=== PATIENT | female | born 1965 | race Caucasian/White ===

== ENCOUNTER 2020-06-18 11:22 | Outpatient (REF) | payer MEDICARE, MEDICAID, SELFPAY ==
[2020-06-18 12:06] LABS: MANUAL DIFF FLAG NO
[2020-06-18 12:17] LABS: Basophils Absolute Auto 0.1 X10*3/uL (0.0-0.2); Basophils Percent Auto 0.6 % (0-2); Hematocrit 41.7 % (37-47); Imm Gran Abs Auto 0.03 X10*3/uL (0.00-0.03); Imm Gran Pct Auto 0.3 % (0.0-0.4); Lymphocytes Percent Auto 38.1 % (20-40); Mean Corpuscular HGB Conc 33.6 g/dl (31.0-35.0); Mean Corpuscular Hemoglobin 31.5 pg (27.0-33.0); Mean Corpuscular Volume 93.9 fL (80-98); Mean Platelet Volume 11.3 fL (9.4-12.3); Monocytes Absolute Auto 0.7 X10*3/uL (0.1-1.2); Monocytes Percent Auto 6.7 % (2-11); Neutrophils Absolute Auto 5.7 X10*3/uL (2.0-8.3); Neutrophils Percent Auto 54.3 % (45-73); Platelet Count 202 X10*3/uL (160-400); Red Blood Count 4.44 X10*6/uL (4.20-5.50); Red Cell Distribution Width 13.1 % (11.0-16.0); White Blood Count 10.5 X10*3/uL (4.8-10.8)
== END 2020-06-18 11:23 | disposition home or self-care (01) ==
LOC: HO.LABR 11:22
PROVIDERS: PCP Internal Medicine; Visit Provider Clinical Nurse Specialist Psychiatric/Mental Health, Adult
DX: Z79.899 Other long term (current) drug therapy (principal)
CPT/HCPCS: 36415; 85025

== ENCOUNTER 2020-07-24 10:16 | Outpatient (REF) | payer MEDICARE, MEDICAID, SELFPAY ==
[2020-07-24 10:40] LABS: MANUAL DIFF FLAG NO
[2020-07-24 10:51] LABS: Basophils Absolute Auto 0.1 X10*3/uL (0.0-0.2); Basophils Percent Auto 0.4 % (0-2); Hematocrit 42.8 % (37-47); Hemoglobin 14.7 g/dl (12.0-16.0); Imm Gran Abs Auto 0.05 X10*3/uL (0.00-0.03); Imm Gran Pct Auto 0.4 % (0.0-0.4); Lymphocytes Absolute Auto 3.5 X10*3/uL (1.2-4.9); Lymphocytes Percent Auto 31.1 % (20-40); Mean Corpuscular HGB Conc 34.3 g/dl (31.0-35.0); Mean Corpuscular Hemoglobin 32.2 pg (27.0-33.0); Mean Corpuscular Volume 93.7 fL (80-98); Mean Platelet Volume 11.4 fL (9.4-12.3); Monocytes Absolute Auto 0.8 X10*3/uL (0.1-1.2); Monocytes Percent Auto 7.2 % (2-11); Neutrophils Absolute Auto 6.9 X10*3/uL (2.0-8.3); Neutrophils Percent Auto 60.9 % (45-73); Platelet Count 223 X10*3/uL (160-400); Red Blood Count 4.57 X10*6/uL (4.20-5.50); Red Cell Distribution Width 12.9 % (11.0-16.0); White Blood Count 11.3 X10*3/uL (4.8-10.8)
== END 2020-07-24 10:17 | disposition home or self-care (01) ==
LOC: HO.LABR 10:16
PROVIDERS: Visit Provider Clinical Nurse Specialist Psychiatric/Mental Health, Adult
DX: Z79.899 Other long term (current) drug therapy (principal)
CPT/HCPCS: 36415; 85025

== ENCOUNTER 2020-08-24 12:12 | Outpatient (REF) | payer MEDICARE, MEDICAID, SELFPAY ==
[2020-08-24 13:07] LABS: Basophils Absolute Auto 0.1 X10*3/uL (0.0-0.2); Basophils Percent Auto 0.4 % (0-2); Hematocrit 41.6 % (37-47); Hemoglobin 14.1 g/dl (12.0-16.0); Imm Gran Abs Auto 0.05 X10*3/uL (0.00-0.03); Imm Gran Pct Auto 0.4 % (0.0-0.4); Lymphocytes Percent Auto 35.7 % (20-40); MANUAL DIFF FLAG SCAN; Mean Corpuscular HGB Conc 33.9 g/dl (31.0-35.0); Mean Corpuscular Hemoglobin 32.1 pg (27.0-33.0); Mean Corpuscular Volume 94.8 fL (80-98); Neutrophils Absolute Auto 7.9 X10*3/uL (2.0-8.3); Neutrophils Percent Auto 56.5 % (45-73); Platelet Count 217 X10*3/uL (160-400); Red Blood Count 4.39 X10*6/uL (4.20-5.50); SCAN SMEAR FLAG 1
[2020-08-24 13:31] LABS: SLIDE REVIEW VERIFIED
== END 2020-08-24 12:13 | disposition home or self-care (01) ==
LOC: HO.LABR 12:12
PROVIDERS: PCP Internal Medicine; Visit Provider Clinical Nurse Specialist Psychiatric/Mental Health, Adult
DX: Z79.899 Other long term (current) drug therapy (principal)
CPT/HCPCS: 36415; 85025

== ENCOUNTER 2020-10-08 12:14 | Outpatient (REF) | payer MEDICARE, MEDICAID, SELFPAY ==
[2020-10-08 13:34] LABS: MANUAL DIFF FLAG NO
[2020-10-08 13:54] LABS: Basophils Absolute Auto 0.1 X10*3/uL (0.0-0.2); Basophils Percent Auto 0.5 % (0-2); Hematocrit 41.2 % (37-47); Hemoglobin 13.9 g/dl (12.0-16.0); Imm Gran Abs Auto 0.04 X10*3/uL (0.00-0.03); Imm Gran Pct Auto 0.3 % (0.0-0.4); Lymphocytes Absolute Auto 3.4 X10*3/uL (1.2-4.9); Lymphocytes Percent Auto 25.8 % (20-40); Mean Corpuscular HGB Conc 33.7 g/dl (31.0-35.0); Mean Corpuscular Hemoglobin 31.6 pg (27.0-33.0); Mean Corpuscular Volume 93.6 fL (80-98); Mean Platelet Volume 11.6 fL (9.4-12.3); Monocytes Percent Auto 7.4 % (2-11); Neutrophils Absolute Auto 8.6 X10*3/uL (2.0-8.3); Platelet Count 213 X10*3/uL (160-400); White Blood Count 13.1 X10*3/uL (4.8-10.8)
== END 2020-10-08 12:15 | disposition home or self-care (01) ==
LOC: HO.LABR 12:14
PROVIDERS: Visit Provider Clinical Nurse Specialist Psychiatric/Mental Health, Adult
DX: Z79.899 Other long term (current) drug therapy (principal)
CPT/HCPCS: 36415; 85025

== ENCOUNTER 2020-11-19 09:13 | Outpatient (REF) | payer MEDICARE, MEDICAID, SELFPAY ==
[2020-11-19 10:11] LABS: MANUAL DIFF FLAG NO
[2020-11-19 10:21] LABS: Basophils Absolute Auto 0.1 X10*3/uL (0.0-0.2); Basophils Percent Auto 0.5 % (0-2); Hematocrit 41.1 % (37-47); Hemoglobin 13.7 g/dl (12.0-16.0); Imm Gran Abs Auto 0.04 X10*3/uL (0.00-0.03); Imm Gran Pct Auto 0.3 % (0.0-0.4); Lymphocytes Absolute Auto 3.2 X10*3/uL (1.2-4.9); Lymphocytes Percent Auto 27.5 % (20-40); Mean Corpuscular HGB Conc 33.3 g/dl (31.0-35.0); Mean Corpuscular Hemoglobin 31.4 pg (27.0-33.0); Mean Corpuscular Volume 94.1 fL (80-98); Mean Platelet Volume 11.1 fL (9.4-12.3); Monocytes Absolute Auto 0.8 X10*3/uL (0.1-1.2); Monocytes Percent Auto 7.1 % (2-11); Neutrophils Absolute Auto 7.4 X10*3/uL (2.0-8.3); Neutrophils Percent Auto 64.6 % (45-73); Platelet Count 208 X10*3/uL (160-400); Red Blood Count 4.37 X10*6/uL (4.20-5.50); Red Cell Distribution Width 12.8 % (11.0-16.0); White Blood Count 11.5 X10*3/uL (4.8-10.8)
[2020-11-24 23:52] LABS: Clozapine (Clozaril) 514 mcg/L; Norclozapine 416 mcg/L (25-400)
== END 2020-11-19 09:14 | disposition home or self-care (01) ==
LOC: HO.LABR 09:13
PROVIDERS: PCP Internal Medicine; Visit Provider Clinical Nurse Specialist Psychiatric/Mental Health, Adult
DX: Z79.899 Other long term (current) drug therapy (principal)
CPT/HCPCS: 36415; 80159; 85025

== ENCOUNTER 2020-12-22 14:40 | Outpatient (REF) | payer MEDICARE, MEDICAID, SELFPAY ==
[2020-12-22 15:29] LABS: Basophils Absolute Auto 0.1 X10*3/uL (0.0-0.2); Basophils Percent Auto 0.5 % (0-2); Hematocrit 43.2 % (37-47); Hemoglobin 14.6 g/dl (12.0-16.0); Imm Gran Abs Auto 0.06 X10*3/uL (0.00-0.03); Imm Gran Pct Auto 0.4 % (0.0-0.4); Lymphocytes Absolute Auto 5.6 X10*3/uL (1.2-4.9); Lymphocytes Percent Auto 37.2 % (20-40); MANUAL DIFF FLAG SCAN; Mean Corpuscular HGB Conc 33.8 g/dl (31.0-35.0); Mean Corpuscular Hemoglobin 31.5 pg (27.0-33.0); Mean Corpuscular Volume 93.3 fL (80-98); Mean Platelet Volume 11.2 fL (9.4-12.3); Monocytes Absolute Auto 1.1 X10*3/uL (0.1-1.2); Monocytes Percent Auto 7.3 % (2-11); Neutrophils Absolute Auto 8.2 X10*3/uL (2.0-8.3); Neutrophils Percent Auto 54.6 % (45-73); Platelet Count 232 X10*3/uL (160-400); Red Blood Count 4.63 X10*6/uL (4.20-5.50); Red Cell Distribution Width 13.1 % (11.0-16.0); SCAN SMEAR FLAG 1
[2020-12-22 15:48] LABS: SLIDE REVIEW VERIFIED
== END 2020-12-22 14:41 | disposition home or self-care (01) ==
LOC: HO.LABR 14:40
PROVIDERS: Visit Provider Clinical Nurse Specialist Psychiatric/Mental Health, Adult
DX: Z79.899 Other long term (current) drug therapy (principal)
CPT/HCPCS: 36415; 85025

== ENCOUNTER 2021-01-14 09:18 | Outpatient (REF) | payer MEDICARE, MEDICAID, SELFPAY ==
[2021-01-14 10:18] LABS: MANUAL DIFF FLAG NO
[2021-01-14 10:31] LABS: Basophils Absolute Auto 0.1 X10*3/uL (0.0-0.2); Basophils Percent Auto 0.5 % (0-2); Hematocrit 42.5 % (37-47); Hemoglobin 14.1 g/dl (12.0-16.0); Imm Gran Abs Auto 0.05 X10*3/uL (0.00-0.03); Imm Gran Pct Auto 0.4 % (0.0-0.4); Lymphocytes Absolute Auto 4.1 X10*3/uL (1.2-4.9); Lymphocytes Percent Auto 36.1 % (20-40); Mean Corpuscular HGB Conc 33.2 g/dl (31.0-35.0); Mean Corpuscular Hemoglobin 31.1 pg (27.0-33.0); Mean Corpuscular Volume 93.6 fL (80-98); Mean Platelet Volume 11.1 fL (9.4-12.3); Monocytes Absolute Auto 0.8 X10*3/uL (0.1-1.2); Monocytes Percent Auto 6.8 % (2-11); Neutrophils Absolute Auto 6.3 X10*3/uL (2.0-8.3); Neutrophils Percent Auto 56.2 % (45-73); Platelet Count 230 X10*3/uL (160-400); Red Blood Count 4.54 X10*6/uL (4.20-5.50); Red Cell Distribution Width 13.2 % (11.0-16.0); White Blood Count 11.2 X10*3/uL (4.8-10.8)
== END 2021-01-14 09:19 | disposition home or self-care (01) ==
LOC: HO.LABR 09:18
PROVIDERS: PCP Internal Medicine; Visit Provider Clinical Nurse Specialist Psychiatric/Mental Health, Adult
DX: Z79.899 Other long term (current) drug therapy (principal)
CPT/HCPCS: 36415; 85025

== ENCOUNTER 2021-02-18 09:29 | Outpatient (REF) | payer MEDICARE, MEDICAID, SELFPAY ==
[2021-02-18 10:44] LABS: MANUAL DIFF FLAG NO
[2021-02-18 10:52] LABS: Basophils Absolute Auto 0.1 X10*3/uL (0.0-0.2); Basophils Percent Auto 0.5 % (0-2); Hematocrit 41.5 % (37-47); Imm Gran Abs Auto 0.04 X10*3/uL (0.00-0.03); Imm Gran Pct Auto 0.4 % (0.0-0.4); Lymphocytes Absolute Auto 3.8 X10*3/uL (1.2-4.9); Lymphocytes Percent Auto 37.5 % (20-40); Mean Corpuscular HGB Conc 33.7 g/dl (31.0-35.0); Mean Corpuscular Hemoglobin 31.5 pg (27.0-33.0); Mean Corpuscular Volume 93.3 fL (80-98); Mean Platelet Volume 11.3 fL (9.4-12.3); Monocytes Absolute Auto 0.8 X10*3/uL (0.1-1.2); Monocytes Percent Auto 7.9 % (2-11); Neutrophils Absolute Auto 5.5 X10*3/uL (2.0-8.3); Neutrophils Percent Auto 53.7 % (45-73); Platelet Count 211 X10*3/uL (160-400); Red Blood Count 4.45 X10*6/uL (4.20-5.50); Red Cell Distribution Width 13.3 % (11.0-16.0); White Blood Count 10.2 X10*3/uL (4.8-10.8)
== END 2021-02-18 09:30 | disposition home or self-care (01) ==
LOC: HO.LABR 09:29
PROVIDERS: PCP Internal Medicine; Visit Provider Clinical Nurse Specialist Psychiatric/Mental Health, Adult
DX: Z79.899 Other long term (current) drug therapy (principal)
CPT/HCPCS: 36415; 85025

== ENCOUNTER 2021-03-17 12:14 | Outpatient (REF) | payer MEDICARE, MEDICAID, SELFPAY ==
[2021-03-17 13:11] LABS: MANUAL DIFF FLAG NO
[2021-03-17 13:19] LABS: Basophils Absolute Auto 0.1 X10*3/uL (0.0-0.2); Basophils Percent Auto 0.4 % (0-2); Hematocrit 43.7 % (37-47); Hemoglobin 14.7 g/dl (12.0-16.0); Imm Gran Abs Auto 0.04 X10*3/uL (0.00-0.03); Imm Gran Pct Auto 0.3 % (0.0-0.4); Lymphocytes Absolute Auto 4.4 X10*3/uL (1.2-4.9); Lymphocytes Percent Auto 34.2 % (20-40); Mean Corpuscular HGB Conc 33.6 g/dl (31.0-35.0); Mean Corpuscular Hemoglobin 31.3 pg (27.0-33.0); Mean Platelet Volume 11.1 fL (9.4-12.3); Monocytes Absolute Auto 0.7 X10*3/uL (0.1-1.2); Monocytes Percent Auto 5.7 % (2-11); Neutrophils Absolute Auto 7.7 X10*3/uL (2.0-8.3); Neutrophils Percent Auto 59.4 % (45-73); Platelet Count 227 X10*3/uL (160-400); White Blood Count 12.9 X10*3/uL (4.8-10.8)
== END 2021-03-17 12:15 | disposition home or self-care (01) ==
LOC: HO.LABR 12:14
PROVIDERS: PCP Internal Medicine; Visit Provider Clinical Nurse Specialist Psychiatric/Mental Health, Adult
DX: Z79.899 Other long term (current) drug therapy (principal)
CPT/HCPCS: 36415; 85025

== ENCOUNTER 2021-04-12 12:14 | Outpatient (REF) | payer MEDICARE, MEDICAID, SELFPAY ==
[2021-04-12 12:58] LABS: MANUAL DIFF FLAG NO
[2021-04-12 13:05] LABS: Basophils Absolute Auto 0.1 X10*3/uL (0.0-0.2); Basophils Percent Auto 0.6 % (0-2); Hematocrit 41.5 % (37-47); Hemoglobin 13.9 g/dl (12.0-16.0); Imm Gran Abs Auto 0.03 X10*3/uL (0.00-0.03); Imm Gran Pct Auto 0.3 % (0.0-0.4); Lymphocytes Absolute Auto 3.9 X10*3/uL (1.2-4.9); Mean Corpuscular HGB Conc 33.5 g/dl (31.0-35.0); Mean Corpuscular Hemoglobin 31.1 pg (27.0-33.0); Mean Corpuscular Volume 92.8 fL (80-98); Mean Platelet Volume 10.8 fL (9.4-12.3); Monocytes Absolute Auto 0.7 X10*3/uL (0.1-1.2); Monocytes Percent Auto 7.6 % (2-11); Neutrophils Absolute Auto 4.8 X10*3/uL (2.0-8.3); Neutrophils Percent Auto 50.5 % (45-73); Platelet Count 206 X10*3/uL (160-400); Red Blood Count 4.47 X10*6/uL (4.20-5.50); White Blood Count 9.6 X10*3/uL (4.8-10.8)
== END 2021-04-12 12:15 | disposition home or self-care (01) ==
LOC: HO.LABR 12:14
PROVIDERS: PCP Internal Medicine; Visit Provider Clinical Nurse Specialist Psychiatric/Mental Health, Adult
DX: Z79.899 Other long term (current) drug therapy (principal)
CPT/HCPCS: 36415; 85025

== ENCOUNTER 2021-05-13 08:43 | Outpatient (REF) | payer MEDICARE, MEDICAID, SELFPAY ==
[2021-05-13 09:12] LABS: MANUAL DIFF FLAG NO
[2021-05-13 09:18] LABS: Basophils Absolute Auto 0.1 X10*3/uL (0.0-0.2); Basophils Percent Auto 0.5 % (0-2); Hematocrit 41.6 % (37-47); Hemoglobin 13.7 g/dl (12.0-16.0); Imm Gran Abs Auto 0.06 X10*3/uL (0.00-0.03); Imm Gran Pct Auto 0.6 % (0.0-0.4); Lymphocytes Absolute Auto 3.1 X10*3/uL (1.2-4.9); Lymphocytes Percent Auto 30.5 % (20-40); Mean Corpuscular HGB Conc 32.9 g/dl (31.0-35.0); Mean Corpuscular Volume 94.1 fL (80-98); Mean Platelet Volume 10.8 fL (9.4-12.3); Monocytes Absolute Auto 0.7 X10*3/uL (0.1-1.2); Monocytes Percent Auto 7.1 % (2-11); Neutrophils Absolute Auto 6.3 X10*3/uL (2.0-8.3); Neutrophils Percent Auto 61.3 % (45-73); Platelet Count 196 X10*3/uL (160-400); Red Blood Count 4.42 X10*6/uL (4.20-5.50); Red Cell Distribution Width 13.2 % (11.0-16.0); White Blood Count 10.3 X10*3/uL (4.8-10.8)
== END 2021-05-13 08:44 | disposition home or self-care (01) ==
LOC: HO.LABR 08:43
PROVIDERS: PCP Internal Medicine; Visit Provider Clinical Nurse Specialist Psychiatric/Mental Health, Adult
DX: Z79.899 Other long term (current) drug therapy (principal)
CPT/HCPCS: 36415; 85025

== ENCOUNTER 2021-06-16 11:17 | Outpatient (REF) | payer MEDICARE, MEDICAID, SELFPAY ==
[2021-06-16 11:39] LABS: MANUAL DIFF FLAG NO
[2021-06-16 11:59] LABS: Basophils Absolute Auto 0.1 X10*3/uL (0.0-0.2); Basophils Percent Auto 0.5 % (0-2); Hemoglobin 12.9 g/dl (12.0-16.0); Imm Gran Abs Auto 0.06 X10*3/uL (0.00-0.03); Imm Gran Pct Auto 0.5 % (0.0-0.4); Lymphocytes Absolute Auto 3.3 X10*3/uL (1.2-4.9); Lymphocytes Percent Auto 25.1 % (20-40); Mean Corpuscular HGB Conc 33.1 g/dl (31.0-35.0); Mean Corpuscular Hemoglobin 31.2 pg (27.0-33.0); Mean Corpuscular Volume 94.2 fL (80-98); Mean Platelet Volume 10.3 fL (9.4-12.3); Monocytes Absolute Auto 0.8 X10*3/uL (0.1-1.2); Monocytes Percent Auto 6.3 % (2-11); Neutrophils Absolute Auto 8.8 X10*3/uL (2.0-8.3); Neutrophils Percent Auto 67.6 % (45-73); Platelet Count 382 X10*3/uL (160-400); Red Blood Count 4.14 X10*6/uL (4.20-5.50); Red Cell Distribution Width 13.2 % (11.0-16.0)
== END 2021-06-16 11:18 | disposition home or self-care (01) ==
LOC: HO.LABR 11:17
PROVIDERS: PCP Internal Medicine; Visit Provider Clinical Nurse Specialist Psychiatric/Mental Health, Adult
DX: Z79.899 Other long term (current) drug therapy (principal)
CPT/HCPCS: 36415; 85025

== ENCOUNTER 2021-07-13 12:04 | Outpatient (REF) | payer MEDICARE, MEDICAID, SELFPAY ==
[2021-07-13 12:20] LABS: MANUAL DIFF FLAG NO
[2021-07-13 13:07] LABS: Basophils Absolute Auto 0.1 X10*3/uL (0.0-0.2); Basophils Percent Auto 0.5 % (0-2); Hematocrit 38.4 % (37.0-47.0); Imm Gran Abs Auto 0.04 X10*3/uL (0.00-0.03); Imm Gran Pct Auto 0.3 % (0.0-0.4); Lymphocytes Absolute Auto 4.7 X10*3/uL (1.2-4.9); Lymphocytes Percent Auto 39.2 % (20-40); Mean Corpuscular HGB Conc 33.9 g/dl (31.0-35.0); Mean Corpuscular Hemoglobin 31.5 pg (27.0-33.0); Mean Platelet Volume 11.1 fL (9.4-12.3); Monocytes Absolute Auto 0.7 X10*3/uL (0.1-1.2); Monocytes Percent Auto 6.2 % (2-11); Neutrophils Absolute Auto 6.4 x10*3/uL (2.0-8.3); Neutrophils Percent Auto 53.8 % (45-73); Platelet Count 240 X10*3/uL (160-400); Red Blood Count 4.13 X10*6/uL (4.20-5.50); Red Cell Distribution Width 13.8 % (11.0-16.0); White Blood Count 11.9 X10*3/uL (4.8-10.8)
== END 2021-07-13 12:05 | disposition home or self-care (01) ==
LOC: HO.LABR 12:04
PROVIDERS: PCP Internal Medicine; Visit Provider Clinical Nurse Specialist Psychiatric/Mental Health, Adult
DX: Z79.899 Other long term (current) drug therapy (principal)
CPT/HCPCS: 36415; 85025

== ENCOUNTER 2021-08-12 09:32 | Outpatient (REF) | payer MEDICARE, MEDICAID, SELFPAY ==
[2021-08-12 09:47] LABS: MANUAL DIFF FLAG NO
[2021-08-12 10:11] LABS: Basophils Absolute Auto 0.1 X10*3/uL (0.0-0.2); Basophils Percent Auto 0.5 % (0-2); Hematocrit 39.3 % (37.0-47.0); Hemoglobin 12.9 g/dl (12.0-16.0); Imm Gran Abs Auto 0.03 X10*3/uL (0.00-0.03); Imm Gran Pct Auto 0.3 % (0.0-0.4); Lymphocytes Absolute Auto 3.3 X10*3/uL (1.2-4.9); Lymphocytes Percent Auto 31.9 % (20-40); Mean Corpuscular HGB Conc 32.8 g/dl (31.0-35.0); Mean Corpuscular Hemoglobin 30.9 pg (27.0-33.0); Mean Corpuscular Volume 94.2 fL (80.0-98.0); Mean Platelet Volume 11.2 fL (9.4-12.3); Monocytes Absolute Auto 0.8 X10*3/uL (0.1-1.2); Monocytes Percent Auto 7.3 % (2-11); Neutrophils Absolute Auto 6.2 x10*3/uL (2.0-8.3); Platelet Count 203 X10*3/uL (160-400); Red Blood Count 4.17 X10*6/uL (4.20-5.50); Red Cell Distribution Width 13.6 % (11.0-16.0); WBCANC 10.3 X10*3/uL; White Blood Count 10.3 X10*3/uL (4.8-10.8)
== END 2021-08-12 09:33 | disposition home or self-care (01) ==
LOC: HO.LAB 09:32
PROVIDERS: PCP Internal Medicine; Visit Provider Clinical Nurse Specialist Psychiatric/Mental Health, Adult
DX: Z79.899 Other long term (current) drug therapy (principal)
CPT/HCPCS: 36415; 85025

== ENCOUNTER 2021-09-07 12:20 | Outpatient (REF) | payer MEDICARE, MEDICAID, SELFPAY ==
[2021-09-07 12:50] LABS: MANUAL DIFF FLAG NO
[2021-09-07 14:18] LABS: Basophils Absolute Auto 0.1 X10*3/uL (0.0-0.2); Basophils Percent Auto 0.6 % (0-2); Imm Gran Abs Auto 0.04 X10*3/uL (0.00-0.03); Imm Gran Pct Auto 0.4 % (0.0-0.4); Lymphocytes Absolute Auto 4.6 X10*3/uL (1.2-4.9); Lymphocytes Percent Auto 41.9 % (20-40); Mean Corpuscular HGB Conc 34.1 g/dl (31.0-35.0); Mean Corpuscular Hemoglobin 31.6 pg (27.0-33.0); Mean Corpuscular Volume 92.6 fL (80.0-98.0); Monocytes Absolute Auto 0.8 X10*3/uL (0.1-1.2); Monocytes Percent Auto 6.9 % (2-11); Neut%MD 50.2 %; Neutrophils Absolute Auto 5.5 x10*3/uL (2.0-8.3); Neutrophils Percent Auto 50.2 % (45-73); Platelet Count 219 X10*3/uL (160-400); Red Blood Count 4.43 X10*6/uL (4.20-5.50); Red Cell Distribution Width 13.3 % (11.0-16.0); WBCANC 10.9 X10*3/uL; White Blood Count 10.9 X10*3/uL (4.8-10.8)
== END 2021-09-07 12:21 | disposition home or self-care (01) ==
LOC: HO.LABR 12:20
PROVIDERS: Visit Provider Clinical Nurse Specialist Psychiatric/Mental Health, Adult
DX: Z79.899 Other long term (current) drug therapy (principal)
CPT/HCPCS: 36415; 85025

== ENCOUNTER 2021-11-15 16:24 | Outpatient (REF) | payer MEDICARE, MEDICAID, SELFPAY ==
[2021-11-15 16:40] LABS: MANUAL DIFF FLAG NO
[2021-11-15 16:43] LABS: Basophils Absolute Auto 0.1 X10*3/uL (0.0-0.2); Basophils Percent Auto 0.4 % (0-2); Hematocrit 39.5 % (37.0-47.0); Hemoglobin 13.1 g/dl (12.0-16.0); Imm Gran Abs Auto 0.05 X10*3/uL (0.00-0.03); Imm Gran Pct Auto 0.4 % (0.0-0.4); Lymphocytes Absolute Auto 4.7 X10*3/uL (1.2-4.9); Lymphocytes Percent Auto 37.6 % (20-40); Mean Corpuscular HGB Conc 33.2 g/dl (31.0-35.0); Mean Corpuscular Hemoglobin 30.9 pg (27.0-33.0); Mean Corpuscular Volume 93.2 fL (80.0-98.0); Mean Platelet Volume 10.8 fL (9.4-12.3); Monocytes Absolute Auto 0.9 X10*3/uL (0.1-1.2); Monocytes Percent Auto 7.1 % (2-11); Neut%MD 54.5 %; Neutrophils Absolute Auto 6.8 x10*3/uL (2.0-8.3); Neutrophils Percent Auto 54.5 % (45-73); Platelet Count 227 X10*3/uL (160-400); Red Blood Count 4.24 X10*6/uL (4.20-5.50); Red Cell Distribution Width 13.2 % (11.0-16.0); WBCANC 12.5 X10*3/uL; White Blood Count 12.5 X10*3/uL (4.8-10.8)
== END 2021-11-15 16:25 | disposition home or self-care (01) ==
LOC: HO.LAB 16:24
PROVIDERS: PCP Internal Medicine; Visit Provider Clinical Nurse Specialist Psychiatric/Mental Health, Adult
DX: Z79.899 Other long term (current) drug therapy (principal)
CPT/HCPCS: 36415; 85025

== ENCOUNTER 2021-12-09 14:59 | Outpatient (REF) | payer MEDICARE, MEDICAID, SELFPAY ==
[2021-12-09 15:12] LABS: MANUAL DIFF FLAG NO
[2021-12-09 15:31] LABS: Basophils Absolute Auto 0.1 X10*3/uL (0.0-0.2); Basophils Percent Auto 0.5 % (0-2); Hematocrit 39.6 % (37.0-47.0); Hemoglobin 13.3 g/dl (12.0-16.0); Imm Gran Abs Auto 0.05 X10*3/uL (0.00-0.03); Imm Gran Pct Auto 0.5 % (0.0-0.4); Lymphocytes Absolute Auto 4.6 X10*3/uL (1.2-4.9); Lymphocytes Percent Auto 42.8 % (20-40); Mean Corpuscular HGB Conc 33.6 g/dl (31.0-35.0); Mean Corpuscular Hemoglobin 31.3 pg (27.0-33.0); Mean Corpuscular Volume 93.2 fL (80.0-98.0); Mean Platelet Volume 11.1 fL (9.4-12.3); Monocytes Absolute Auto 0.7 X10*3/uL (0.1-1.2); Monocytes Percent Auto 6.9 % (2-11); Neut%MD 49.3 %; Neutrophils Absolute Auto 5.3 x10*3/uL (2.0-8.3); Neutrophils Percent Auto 49.3 % (45-73); Platelet Count 194 X10*3/uL (160-400); Red Blood Count 4.25 X10*6/uL (4.20-5.50); Red Cell Distribution Width 13.2 % (11.0-16.0); WBCANC 10.7 X10*3/uL; White Blood Count 10.7 X10*3/uL (4.8-10.8)
== END 2021-12-09 15:00 | disposition home or self-care (01) ==
LOC: HO.LAB 14:59
PROVIDERS: PCP Internal Medicine; Visit Provider Clinical Nurse Specialist Psychiatric/Mental Health, Adult
DX: Z79.899 Other long term (current) drug therapy (principal)
CPT/HCPCS: 36415; 85025

== ENCOUNTER 2022-01-09 13:40 | Outpatient (REF) | payer MEDICARE, MEDICAID, SELFPAY ==
[2022-01-09 13:53] LABS: MANUAL DIFF FLAG NO
[2022-01-09 13:58] LABS: Basophils Absolute Auto 0.1 X10*3/uL (0.0-0.2); Basophils Percent Auto 0.5 % (0-2); Hematocrit 39.1 % (37.0-47.0); Hemoglobin 13.5 g/dl (12.0-16.0); Imm Gran Abs Auto 0.06 X10*3/uL (0.00-0.03); Imm Gran Pct Auto 0.5 % (0.0-0.4); Lymphocytes Absolute Auto 4.2 X10*3/uL (1.2-4.9); Lymphocytes Percent Auto 31.6 % (20-40); Mean Corpuscular HGB Conc 34.5 g/dl (31.0-35.0); Mean Corpuscular Hemoglobin 31.7 pg (27.0-33.0); Mean Corpuscular Volume 91.8 fL (80.0-98.0); Mean Platelet Volume 10.8 fL (9.4-12.3); Monocytes Absolute Auto 0.8 X10*3/uL (0.1-1.2); Monocytes Percent Auto 5.8 % (2-11); Neutrophils Absolute Auto 8.1 x10*3/uL (2.0-8.3); Neutrophils Percent Auto 61.6 % (45-73); Platelet Count 229 X10*3/uL (160-400); Red Blood Count 4.26 X10*6/uL (4.20-5.50); Red Cell Distribution Width 13.3 % (11.0-16.0); White Blood Count 13.2 X10*3/uL (4.8-10.8)
== END 2022-01-09 13:41 | disposition home or self-care (01) ==
LOC: HO.LABR 13:40
PROVIDERS: PCP Internal Medicine; Visit Provider Clinical Nurse Specialist Psychiatric/Mental Health, Adult
DX: Z79.899 Other long term (current) drug therapy (principal)
CPT/HCPCS: 36415; 85025

== ENCOUNTER 2022-02-14 09:02 | Outpatient (REF) | payer MEDICARE, MEDICAID, SELFPAY ==
[2022-02-14 09:25] LABS: MANUAL DIFF FLAG NO
[2022-02-14 10:29] LABS: Basophils Percent Auto 0.3 % (0-2); Hematocrit 39.4 % (37.0-47.0); Hemoglobin 12.8 g/dl (12.0-16.0); Imm Gran Abs Auto 0.06 X10*3/uL (0.00-0.03); Imm Gran Pct Auto 0.4 % (0.0-0.4); Lymphocytes Absolute Auto 3.3 X10*3/uL (1.2-4.9); Lymphocytes Percent Auto 24.4 % (20-40); Mean Corpuscular HGB Conc 32.5 g/dl (31.0-35.0); Mean Corpuscular Hemoglobin 30.1 pg (27.0-33.0); Mean Corpuscular Volume 92.7 fL (80.0-98.0); Mean Platelet Volume 11.4 fL (9.4-12.3); Monocytes Absolute Auto 0.8 X10*3/uL (0.1-1.2); Monocytes Percent Auto 5.7 % (2-11); Neutrophils Absolute Auto 9.3 x10*3/uL (2.0-8.3); Neutrophils Percent Auto 69.2 % (45-73); Platelet Count 211 X10*3/uL (160-400); Red Blood Count 4.25 X10*6/uL (4.20-5.50); White Blood Count 13.4 X10*3/uL (4.8-10.8)
== END 2022-02-14 09:03 | disposition home or self-care (01) ==
LOC: HO.LABR 09:02
PROVIDERS: Clinical Nurse Specialist Psychiatric/Mental Health, Adult; PCP Internal Medicine; Visit Provider Psychiatry & Neurology Psychiatry
DX: Z79.899 Other long term (current) drug therapy (principal)
CPT/HCPCS: 36415; 85025

== ENCOUNTER 2022-03-10 08:45 | Outpatient (REF) | payer MEDICARE, MEDICAID, SELFPAY ==
[2022-03-10 09:13] LABS: MANUAL DIFF FLAG NO
[2022-03-10 09:44] LABS: Basophils Percent Auto 0.3 % (0-2); Hematocrit 39.1 % (37.0-47.0); Imm Gran Abs Auto 0.05 X10*3/uL (0.00-0.03); Imm Gran Pct Auto 0.4 % (0.0-0.4); Lymphocytes Absolute Auto 3.6 X10*3/uL (1.2-4.9); Lymphocytes Percent Auto 29.2 % (20-40); Mean Corpuscular HGB Conc 33.2 g/dl (31.0-35.0); Mean Corpuscular Hemoglobin 30.6 pg (27.0-33.0); Mean Platelet Volume 11.3 fL (9.4-12.3); Monocytes Absolute Auto 0.9 X10*3/uL (0.1-1.2); Monocytes Percent Auto 7.4 % (2-11); Neut%MD 62.7 %; Neutrophils Absolute Auto 7.8 x10*3/uL (2.0-8.3); Neutrophils Percent Auto 62.7 % (45-73); Platelet Count 213 X10*3/uL (160-400); Red Blood Count 4.25 X10*6/uL (4.20-5.50); Red Cell Distribution Width 13.2 % (11.0-16.0); WBCANC 12.4 X10*3/uL; White Blood Count 12.4 X10*3/uL (4.8-10.8)
== END 2022-03-10 08:46 | disposition home or self-care (01) ==
LOC: HO.LABR 08:45
PROVIDERS: PCP Internal Medicine; Visit Provider Clinical Nurse Specialist Psychiatric/Mental Health, Adult
DX: Z79.899 Other long term (current) drug therapy (principal)
CPT/HCPCS: 36415; 85025

== ENCOUNTER 2022-04-05 12:37 | Outpatient (REF) | payer MEDICARE, MEDICAID, SELFPAY ==
[2022-04-05 12:52] LABS: MANUAL DIFF FLAG NO
[2022-04-05 13:13] LABS: Basophils Absolute Auto 0.1 X10*3/uL (0.0-0.2); Basophils Percent Auto 0.6 % (0-2); Hematocrit 38.6 % (37.0-47.0); Imm Gran Abs Auto 0.04 X10*3/uL (0.00-0.03); Imm Gran Pct Auto 0.4 % (0.0-0.4); Lymphocytes Absolute Auto 4.6 X10*3/uL (1.2-4.9); Lymphocytes Percent Auto 42.4 % (20-40); Mean Corpuscular HGB Conc 33.7 g/dl (31.0-35.0); Mean Corpuscular Hemoglobin 31.3 pg (27.0-33.0); Mean Corpuscular Volume 92.8 fL (80.0-98.0); Mean Platelet Volume 11.4 fL (9.4-12.3); Monocytes Absolute Auto 0.9 X10*3/uL (0.1-1.2); Monocytes Percent Auto 8.4 % (2-11); Neutrophils Absolute Auto 5.2 x10*3/uL (2.0-8.3); Neutrophils Percent Auto 48.2 % (45-73); Platelet Count 202 X10*3/uL (160-400); Red Blood Count 4.16 X10*6/uL (4.20-5.50); Red Cell Distribution Width 12.7 % (11.0-16.0); White Blood Count 10.9 X10*3/uL (4.8-10.8)
== END 2022-04-05 12:38 | disposition home or self-care (01) ==
LOC: HO.LABR 12:37
PROVIDERS: PCP Internal Medicine; Visit Provider Clinical Nurse Specialist Psychiatric/Mental Health, Adult
DX: Z79.899 Other long term (current) drug therapy (principal)
CPT/HCPCS: 36415; 85025

== ENCOUNTER 2022-04-27 11:09 | Outpatient (REF) | payer MEDICARE, MEDICAID, SELFPAY ==
[2022-04-27 11:25] LABS: MANUAL DIFF FLAG NO
[2022-04-27 11:55] LABS: Basophils Absolute Auto 0.1 X10*3/uL (0.0-0.2); Basophils Percent Auto 0.4 % (0-2); Hematocrit 35.6 % (37.0-47.0); Hemoglobin 12.2 g/dl (12.0-16.0); Imm Gran Abs Auto 0.03 X10*3/uL (0.00-0.03); Imm Gran Pct Auto 0.2 % (0.0-0.4); Lymphocytes Absolute Auto 3.6 X10*3/uL (1.2-4.9); Lymphocytes Percent Auto 29.4 % (20-40); Mean Corpuscular HGB Conc 34.3 g/dl (31.0-35.0); Mean Corpuscular Hemoglobin 31.4 pg (27.0-33.0); Mean Corpuscular Volume 91.5 fL (80.0-98.0); Mean Platelet Volume 10.9 fL (9.4-12.3); Monocytes Absolute Auto 0.8 X10*3/uL (0.1-1.2); Monocytes Percent Auto 6.5 % (2-11); Neut%MD 63.5 %; Neutrophils Absolute Auto 7.8 x10*3/uL (2.0-8.3); Neutrophils Percent Auto 63.5 % (45-73); Platelet Count 208 X10*3/uL (160-400); Red Blood Count 3.89 X10*6/uL (4.20-5.50); Red Cell Distribution Width 12.8 % (11.0-16.0); WBCANC 12.2 X10*3/uL; White Blood Count 12.2 X10*3/uL (4.8-10.8)
== END 2022-04-27 11:10 | disposition home or self-care (01) ==
LOC: HO.LABR 11:09
PROVIDERS: Visit Provider Clinical Nurse Specialist Psychiatric/Mental Health, Adult
DX: Z79.899 Other long term (current) drug therapy (principal)
CPT/HCPCS: 36415; 85025

== ENCOUNTER 2022-05-26 13:50 | Outpatient (REF) | payer MEDICARE, MEDICAID, SELFPAY ==
[2022-05-26 14:04] LABS: MANUAL DIFF FLAG NO
[2022-05-26 14:39] LABS: Basophils Absolute Auto 0.1 X10*3/uL (0.0-0.2); Basophils Percent Auto 0.5 % (0-2); Hemoglobin 12.9 g/dl (12.0-16.0); Imm Gran Abs Auto 0.07 X10*3/uL (0.00-0.03); Imm Gran Pct Auto 0.5 % (0.0-0.4); Lymphocytes Absolute Auto 3.9 X10*3/uL (1.2-4.9); Lymphocytes Percent Auto 26.5 % (20-40); Mean Corpuscular HGB Conc 33.1 g/dl (31.0-35.0); Mean Corpuscular Hemoglobin 30.5 pg (27.0-33.0); Mean Corpuscular Volume 92.2 fL (80.0-98.0); Mean Platelet Volume 10.9 fL (9.4-12.3); Monocytes Absolute Auto 1.1 X10*3/uL (0.1-1.2); Monocytes Percent Auto 7.3 % (2-11); Neutrophils Absolute Auto 9.6 x10*3/uL (2.0-8.3); Neutrophils Percent Auto 65.2 % (45-73); Platelet Count 276 X10*3/uL (160-400); Red Blood Count 4.23 X10*6/uL (4.20-5.50); White Blood Count 14.7 X10*3/uL (4.8-10.8)
== END 2022-05-26 13:51 | disposition home or self-care (01) ==
LOC: HO.LAB 13:50
PROVIDERS: Visit Provider Clinical Nurse Specialist Psychiatric/Mental Health, Adult
DX: Z79.899 Other long term (current) drug therapy (principal)
CPT/HCPCS: 36415; 85025

== ENCOUNTER 2022-07-01 09:27 | Outpatient (REF) | payer MEDICARE, MEDICAID, SELFPAY ==
[2022-07-01 09:44] LABS: MANUAL DIFF FLAG NO
[2022-07-01 10:38] LABS: Basophils Absolute Auto 0.1 X10*3/uL (0.0-0.2); Basophils Percent Auto 0.5 % (0-2); Hematocrit 37.9 % (37.0-47.0); Hemoglobin 12.4 g/dl (12.0-16.0); Imm Gran Abs Auto 0.04 X10*3/uL (0.00-0.03); Imm Gran Pct Auto 0.3 % (0.0-0.4); Lymphocytes Absolute Auto 2.9 X10*3/uL (1.2-4.9); Lymphocytes Percent Auto 25.4 % (20-40); Mean Corpuscular HGB Conc 32.7 g/dl (31.0-35.0); Mean Corpuscular Hemoglobin 30.5 pg (27.0-33.0); Mean Corpuscular Volume 93.3 fL (80.0-98.0); Mean Platelet Volume 11.4 fL (9.4-12.3); Monocytes Absolute Auto 0.9 X10*3/uL (0.1-1.2); Monocytes Percent Auto 7.5 % (2-11); Neutrophils Absolute Auto 7.7 x10*3/uL (2.0-8.3); Neutrophils Percent Auto 66.3 % (45-73); Platelet Count 209 X10*3/uL (160-400); Red Blood Count 4.06 X10*6/uL (4.20-5.50); Red Cell Distribution Width 13.2 % (11.0-16.0); White Blood Count 11.6 X10*3/uL (4.8-10.8)
== END 2022-07-01 09:28 | disposition home or self-care (01) ==
LOC: HO.LAB 09:27
PROVIDERS: PCP Internal Medicine; Visit Provider Clinical Nurse Specialist Psychiatric/Mental Health, Adult
DX: Z79.899 Other long term (current) drug therapy (principal)
CPT/HCPCS: 36415; 85025

== ENCOUNTER 2022-08-04 10:27 | Outpatient (REF) | payer MEDICARE, MEDICAID, SELFPAY ==
[2022-08-04 10:40] LABS: MANUAL DIFF FLAG NO
[2022-08-04 11:50] LABS: Basophils Absolute Auto 0.1 X10*3/uL (0.0-0.2); Basophils Percent Auto 0.6 % (0-2); Hematocrit 39.7 % (37.0-47.0); Imm Gran Abs Auto 0.04 X10*3/uL (0.00-0.03); Imm Gran Pct Auto 0.3 % (0.0-0.4); Lymphocytes Absolute Auto 3.8 X10*3/uL (1.2-4.9); Lymphocytes Percent Auto 31.9 % (20-40); Mean Corpuscular HGB Conc 32.7 g/dl (31.0-35.0); Mean Corpuscular Hemoglobin 30.7 pg (27.0-33.0); Mean Corpuscular Volume 93.6 fL (80.0-98.0); Mean Platelet Volume 11.4 fL (9.4-12.3); Monocytes Absolute Auto 0.9 X10*3/uL (0.1-1.2); Monocytes Percent Auto 7.5 % (2-11); Neut%MD 59.7 %; Neutrophils Percent Auto 59.7 % (45-73); Platelet Count 214 X10*3/uL (160-400); Red Blood Count 4.24 X10*6/uL (4.20-5.50); Red Cell Distribution Width 13.2 % (11.0-16.0); WBCANC 11.8 X10*3/uL; White Blood Count 11.8 X10*3/uL (4.8-10.8)
== END 2022-08-04 10:28 | disposition home or self-care (01) ==
LOC: HO.LAB 10:27
PROVIDERS: PCP Internal Medicine; Visit Provider Clinical Nurse Specialist Psychiatric/Mental Health, Adult
DX: Z13.89 Encounter for screening for other disorder (principal)
CPT/HCPCS: 36415; 85025

== ENCOUNTER 2022-08-29 13:20 | Outpatient (REF) | payer MEDICARE, MEDICAID, SELFPAY ==
[2022-08-29 13:45] LABS: Basophils Absolute Auto 0.1 X10*3/uL (0.0-0.2); Basophils Percent Auto 0.5 % (0-2); Hematocrit 37.4 % (37.0-47.0); Hemoglobin 12.2 g/dl (12.0-16.0); Imm Gran Abs Auto 0.07 X10*3/uL (0.00-0.03); Imm Gran Pct Auto 0.5 % (0.0-0.4); Lymphocytes Absolute Auto 5.2 X10*3/uL (1.2-4.9); Lymphocytes Percent Auto 38.4 % (20-40); MANUAL DIFF FLAG SCAN; Mean Corpuscular HGB Conc 32.6 g/dl (31.0-35.0); Mean Corpuscular Hemoglobin 30.3 pg (27.0-33.0); Mean Platelet Volume 10.2 fL (9.4-12.3); Monocytes Absolute Auto 0.7 X10*3/uL (0.1-1.2); Monocytes Percent Auto 5.2 % (2-11); Neutrophils Absolute Auto 7.5 x10*3/uL (2.0-8.3); Neutrophils Percent Auto 55.4 % (45-73); Platelet Count 313 X10*3/uL (160-400); Red Blood Count 4.02 X10*6/uL (4.20-5.50); Red Cell Distribution Width 12.8 % (11.0-16.0); SCAN SMEAR FLAG 1; White Blood Count 13.5 X10*3/uL (4.8-10.8)
[2022-08-29 14:04] LABS: SLIDE REVIEW VERIFIED
== END 2022-08-29 13:21 | disposition home or self-care (01) ==
LOC: HO.LABR 13:20
PROVIDERS: Visit Provider Clinical Nurse Specialist Psychiatric/Mental Health, Adult
DX: Z79.899 Other long term (current) drug therapy (principal)
CPT/HCPCS: 36415; 85025

== ENCOUNTER 2022-09-20 11:11 | Outpatient (REF) | payer MEDICARE, MEDICAID, SELFPAY ==
[2022-09-20 11:21] LABS: MANUAL DIFF FLAG NO
[2022-09-20 12:15] LABS: Basophils Absolute Auto 0.1 X10*3/uL (0.0-0.2); Basophils Percent Auto 0.5 % (0-2); Hematocrit 38.4 % (37.0-47.0); Hemoglobin 12.4 g/dl (12.0-16.0); Imm Gran Abs Auto 0.08 X10*3/uL (0.00-0.03); Imm Gran Pct Auto 0.6 % (0.0-0.4); Lymphocytes Absolute Auto 4.3 X10*3/uL (1.2-4.9); Lymphocytes Percent Auto 31.7 % (20-40); Mean Corpuscular HGB Conc 32.3 g/dl (31.0-35.0); Monocytes Absolute Auto 0.9 X10*3/uL (0.1-1.2); Monocytes Percent Auto 6.3 % (2-11); Neutrophils Absolute Auto 8.4 x10*3/uL (2.0-8.3); Neutrophils Percent Auto 60.9 % (45-73); Platelet Count 238 X10*3/uL (160-400); Red Blood Count 4.13 X10*6/uL (4.20-5.50); Red Cell Distribution Width 12.9 % (11.0-16.0); White Blood Count 13.7 X10*3/uL (4.8-10.8)
== END 2022-09-20 11:12 | disposition home or self-care (01) ==
LOC: HO.LABR 11:11
PROVIDERS: PCP Internal Medicine; Visit Provider Clinical Nurse Specialist Psychiatric/Mental Health, Adult
DX: Z79.899 Other long term (current) drug therapy (principal)
CPT/HCPCS: 36415; 85025

== ENCOUNTER 2022-10-26 08:15 | Outpatient (REF) | payer MEDICARE, MEDICAID, SELFPAY ==
[2022-10-26 08:25] LABS: MANUAL DIFF FLAG NO
[2022-10-26 09:04] LABS: Basophils Absolute Auto 0.1 X10*3/uL (0.0-0.2); Basophils Percent Auto 0.5 % (0-2); Hemoglobin 11.8 g/dl (12.0-16.0); Imm Gran Abs Auto 0.04 X10*3/uL (0.00-0.03); Imm Gran Pct Auto 0.3 % (0.0-0.4); Lymphocytes Absolute Auto 3.6 X10*3/uL (1.2-4.9); Lymphocytes Percent Auto 30.9 % (20-40); Mean Corpuscular HGB Conc 32.8 g/dl (31.0-35.0); Mean Corpuscular Volume 91.6 fL (80.0-98.0); Mean Platelet Volume 11.2 fL (9.4-12.3); Monocytes Percent Auto 8.4 % (2-11); Neutrophils Percent Auto 59.9 % (45-73); Platelet Count 202 X10*3/uL (160-400); Red Blood Count 3.93 X10*6/uL (4.20-5.50); Red Cell Distribution Width 13.2 % (11.0-16.0); White Blood Count 11.7 X10*3/uL (4.8-10.8)
== END 2022-10-26 08:16 | disposition home or self-care (01) ==
LOC: HO.LABR 08:15
PROVIDERS: PCP Internal Medicine; Visit Provider Clinical Nurse Specialist Psychiatric/Mental Health, Adult
DX: Z79.899 Other long term (current) drug therapy (principal)
CPT/HCPCS: 36415; 85025

== ENCOUNTER 2022-11-22 16:25 | Outpatient (REF) | payer MEDICARE, MEDICAID, SELFPAY ==
[2022-11-22 17:23] LABS: Basophils Absolute Auto 0.1 X10*3/uL (0.0-0.2); Basophils Percent Auto 0.6 % (0-2); Hematocrit 38.5 % (37.0-47.0); Hemoglobin 12.6 g/dl (12.0-16.0); Imm Gran Abs Auto 0.05 X10*3/uL (0.00-0.03); Imm Gran Pct Auto 0.4 % (0.0-0.4); Lymphocytes Absolute Auto 5.4 X10*3/uL (1.2-4.9); Lymphocytes Percent Auto 39.9 % (20-40); MANUAL DIFF FLAG SCAN; Mean Corpuscular HGB Conc 32.7 g/dl (31.0-35.0); Mean Corpuscular Hemoglobin 30.2 pg (27.0-33.0); Mean Corpuscular Volume 92.3 fL (80.0-98.0); Monocytes Absolute Auto 1.1 X10*3/uL (0.1-1.2); Monocytes Percent Auto 8.2 % (2-11); Neutrophils Absolute Auto 6.9 x10*3/uL (2.0-8.3); Neutrophils Percent Auto 50.9 % (45-73); Platelet Count 225 X10*3/uL (160-400); Red Blood Count 4.17 X10*6/uL (4.20-5.50); Red Cell Distribution Width 13.5 % (11.0-16.0); SCAN SMEAR FLAG 1; White Blood Count 13.6 X10*3/uL (4.8-10.8)
[2022-11-22 17:49] LABS: SLIDE REVIEW VERIFIED
== END 2022-11-22 16:26 | disposition home or self-care (01) ==
LOC: HO.LABR 16:25
PROVIDERS: PCP Internal Medicine; Visit Provider Clinical Nurse Specialist Psychiatric/Mental Health, Adult
DX: Z79.899 Other long term (current) drug therapy (principal)
CPT/HCPCS: 36415; 85025

== ENCOUNTER 2022-12-20 15:24 | Outpatient (REF) | payer MEDICARE, MEDICAID, SELFPAY ==
[2022-12-20 15:42] LABS: MANUAL DIFF FLAG NO
[2022-12-20 15:49] LABS: Basophils Absolute Auto 0.1 X10*3/uL (0.0-0.2); Basophils Percent Auto 0.4 % (0-2); Hematocrit 38.4 % (37.0-47.0); Hemoglobin 12.8 g/dl (12.0-16.0); Imm Gran Abs Auto 0.05 X10*3/uL (0.00-0.03); Imm Gran Pct Auto 0.4 % (0.0-0.4); Lymphocytes Absolute Auto 4.7 X10*3/uL (1.2-4.9); Lymphocytes Percent Auto 37.8 % (20-40); Mean Corpuscular HGB Conc 33.3 g/dl (31.0-35.0); Mean Corpuscular Hemoglobin 30.5 pg (27.0-33.0); Mean Corpuscular Volume 91.6 fL (80.0-98.0); Mean Platelet Volume 11.3 fL (9.4-12.3); Monocytes Absolute Auto 0.9 X10*3/uL (0.1-1.2); Monocytes Percent Auto 7.4 % (2-11); Neutrophils Absolute Auto 6.6 x10*3/uL (2.0-8.3); Platelet Count 213 X10*3/uL (160-400); Red Blood Count 4.19 X10*6/uL (4.20-5.50); Red Cell Distribution Width 13.4 % (11.0-16.0); White Blood Count 12.3 X10*3/uL (4.8-10.8)
== END 2022-12-20 15:25 | disposition home or self-care (01) ==
LOC: HO.LAB 15:24
PROVIDERS: PCP Internal Medicine; Visit Provider Clinical Nurse Specialist Psychiatric/Mental Health, Adult
DX: Z79.899 Other long term (current) drug therapy (principal)
CPT/HCPCS: 36415; 85025

== ENCOUNTER 2023-01-23 15:33 | Outpatient (REF) | payer MEDICARE, MEDICAID, SELFPAY ==
[2023-01-23 15:46] LABS: MANUAL DIFF FLAG NO
[2023-01-23 17:01] LABS: Basophils Absolute Auto 0.1 X10*3/uL (0.0-0.2); Basophils Percent Auto 0.7 % (0-2); Hematocrit 38.9 % (37.0-47.0); Hemoglobin 12.7 g/dl (12.0-16.0); Imm Gran Abs Auto 0.05 X10*3/uL (0.00-0.03); Imm Gran Pct Auto 0.4 % (0.0-0.4); Lymphocytes Absolute Auto 4.6 X10*3/uL (1.2-4.9); Lymphocytes Percent Auto 33.4 % (20-40); Mean Corpuscular HGB Conc 32.6 g/dl (31.0-35.0); Mean Corpuscular Hemoglobin 30.6 pg (27.0-33.0); Mean Corpuscular Volume 93.7 fL (80.0-98.0); Monocytes Absolute Auto 0.9 X10*3/uL (0.1-1.2); Monocytes Percent Auto 6.7 % (2-11); Neutrophils Absolute Auto 8.1 x10*3/uL (2.0-8.3); Neutrophils Percent Auto 58.8 % (45-73); Platelet Count 338 X10*3/uL (160-400); Red Blood Count 4.15 X10*6/uL (4.20-5.50); Red Cell Distribution Width 13.1 % (11.0-16.0); White Blood Count 13.8 X10*3/uL (4.8-10.8)
== END 2023-01-23 15:34 | disposition home or self-care (01) ==
LOC: HO.LABR 15:33
PROVIDERS: PCP Internal Medicine; Visit Provider Clinical Nurse Specialist Psychiatric/Mental Health, Adult
DX: Z79.899 Other long term (current) drug therapy (principal)
CPT/HCPCS: 36415; 85025

== ENCOUNTER 2023-02-23 10:29 | Outpatient (REF) | payer MEDICARE, MEDICAID, SELFPAY ==
[2023-02-23 10:41] LABS: MANUAL DIFF FLAG NO
[2023-02-23 11:17] LABS: Basophils Absolute Auto 0.1 X10*3/uL (0.0-0.2); Basophils Percent Auto 0.6 % (0-2); Hematocrit 37.2 % (37.0-47.0); Hemoglobin 12.5 g/dl (12.0-16.0); Imm Gran Abs Auto 0.05 X10*3/uL (0.00-0.03); Imm Gran Pct Auto 0.4 % (0.0-0.4); Mean Corpuscular HGB Conc 33.6 g/dl (31.0-35.0); Mean Corpuscular Hemoglobin 30.9 pg (27.0-33.0); Mean Corpuscular Volume 91.9 fL (80.0-98.0); Mean Platelet Volume 11.6 fL (9.4-12.3); Monocytes Absolute Auto 0.9 X10*3/uL (0.1-1.2); Monocytes Percent Auto 6.6 % (2-11); Neutrophils Absolute Auto 8.4 x10*3/uL (2.0-8.3); Neutrophils Percent Auto 62.4 % (45-73); Platelet Count 233 X10*3/uL (160-400); Red Blood Count 4.05 X10*6/uL (4.20-5.50); Red Cell Distribution Width 13.4 % (11.0-16.0); White Blood Count 13.4 X10*3/uL (4.8-10.8)
== END 2023-02-23 10:30 | disposition home or self-care (01) ==
LOC: HO.LABR 10:29
PROVIDERS: PCP Internal Medicine; Visit Provider Clinical Nurse Specialist Psychiatric/Mental Health, Adult
DX: Z79.899 Other long term (current) drug therapy (principal)
CPT/HCPCS: 36415; 85025

== ENCOUNTER 2023-03-26 08:30 | Outpatient (REF) | payer MEDICARE, MEDICAID, SELFPAY ==
[2023-03-26 08:48] LABS: MANUAL DIFF FLAG NO
[2023-03-26 08:58] LABS: Basophils Percent Auto 0.3 % (0-2); Hematocrit 37.5 % (37.0-47.0); Hemoglobin 12.5 g/dl (12.0-16.0); Imm Gran Abs Auto 0.07 X10*3/uL (0.00-0.03); Imm Gran Pct Auto 0.6 % (0.0-0.4); Lymphocytes Absolute Auto 2.7 X10*3/uL (1.2-4.9); Lymphocytes Percent Auto 21.5 % (20-40); Mean Corpuscular HGB Conc 33.3 g/dl (31.0-35.0); Mean Corpuscular Hemoglobin 30.9 pg (27.0-33.0); Mean Corpuscular Volume 92.8 fL (80.0-98.0); Mean Platelet Volume 11.2 fL (9.4-12.3); Monocytes Absolute Auto 0.7 X10*3/uL (0.1-1.2); Monocytes Percent Auto 5.4 % (2-11); Neutrophils Absolute Auto 9.2 x10*3/uL (2.0-8.3); Neutrophils Percent Auto 72.2 % (45-73); Platelet Count 210 X10*3/uL (160-400); Red Blood Count 4.04 X10*6/uL (4.20-5.50); Red Cell Distribution Width 13.2 % (11.0-16.0); White Blood Count 12.7 X10*3/uL (4.8-10.8)
== END 2023-03-26 08:31 | disposition home or self-care (01) ==
LOC: HO.LAB 08:30
PROVIDERS: Visit Provider Clinical Nurse Specialist Psychiatric/Mental Health, Adult
DX: Z79.899 Other long term (current) drug therapy (principal)
CPT/HCPCS: 36415; 85025

== ENCOUNTER 2023-04-18 11:03 | Outpatient (REF) | payer MEDICARE, MEDICAID, SELFPAY ==
[2023-04-18 11:19] LABS: MANUAL DIFF FLAG NO
[2023-04-18 12:14] LABS: Basophils Absolute Auto 0.1 X10*3/uL (0.0-0.2); Basophils Percent Auto 0.4 % (0-2); Hematocrit 37.6 % (37.0-47.0); Hemoglobin 12.5 g/dl (12.0-16.0); Imm Gran Abs Auto 0.04 X10*3/uL (0.00-0.03); Imm Gran Pct Auto 0.3 % (0.0-0.4); Lymphocytes Absolute Auto 3.8 X10*3/uL (1.2-4.9); Lymphocytes Percent Auto 31.1 % (20-40); Mean Corpuscular HGB Conc 33.2 g/dl (31.0-35.0); Mean Corpuscular Volume 90.4 fL (80.0-98.0); Mean Platelet Volume 11.6 fL (9.4-12.3); Monocytes Absolute Auto 0.7 X10*3/uL (0.1-1.2); Neutrophils Absolute Auto 7.7 x10*3/uL (2.0-8.3); Neutrophils Percent Auto 62.2 % (45-73); Platelet Count 212 X10*3/uL (160-400); Red Blood Count 4.16 X10*6/uL (4.20-5.50); White Blood Count 12.3 X10*3/uL (4.8-10.8)
== END 2023-04-18 11:04 | disposition home or self-care (01) ==
LOC: HO.LAB 11:03
PROVIDERS: Visit Provider Clinical Nurse Specialist Psychiatric/Mental Health, Adult
DX: Z79.899 Other long term (current) drug therapy (principal)
CPT/HCPCS: 36415; 85025

== ENCOUNTER 2023-06-01 07:43 | Outpatient (REF) | payer MEDICARE, MEDICAID, SELFPAY ==
[2023-06-01 07:59] LABS: MANUAL DIFF FLAG NO
[2023-06-01 08:20] LABS: Basophils Absolute Auto 0.1 X10*3/uL (0.0-0.2); Basophils Percent Auto 0.5 % (0-2); Hematocrit 37.4 % (37.0-47.0); Hemoglobin 12.5 g/dl (12.0-16.0); Imm Gran Abs Auto 0.04 X10*3/uL (0.00-0.03); Imm Gran Pct Auto 0.3 % (0.0-0.4); Lymphocytes Absolute Auto 3.8 X10*3/uL (1.2-4.9); Lymphocytes Percent Auto 27.5 % (20-40); Mean Corpuscular HGB Conc 33.4 g/dl (31.0-35.0); Mean Corpuscular Hemoglobin 30.8 pg (27.0-33.0); Mean Corpuscular Volume 92.1 fL (80.0-98.0); Mean Platelet Volume 12.1 fL (9.4-12.3); Monocytes Absolute Auto 0.7 X10*3/uL (0.1-1.2); Monocytes Percent Auto 5.2 % (2-11); Neutrophils Absolute Auto 9.2 x10*3/uL (2.0-8.3); Neutrophils Percent Auto 66.5 % (45-73); Platelet Count 186 X10*3/uL (160-400); Red Blood Count 4.06 X10*6/uL (4.20-5.50); Red Cell Distribution Width 12.8 % (11.0-16.0); White Blood Count 13.8 X10*3/uL (4.8-10.8)
== END 2023-06-01 07:44 | disposition home or self-care (01) ==
LOC: HO.LAB 07:43
PROVIDERS: Visit Provider Clinical Nurse Specialist Psychiatric/Mental Health, Adult
DX: Z79.899 Other long term (current) drug therapy (principal)
CPT/HCPCS: 36415; 85025

== ENCOUNTER 2023-06-27 09:01 | Outpatient (REF) | payer MEDICARE, MEDICAID, SELFPAY ==
[2023-06-27 09:25] LABS: MANUAL DIFF FLAG NO
[2023-06-27 09:43] LABS: Basophils Percent Auto 0.4 % (0-2); Hematocrit 35.4 % (37.0-47.0); Imm Gran Abs Auto 0.04 X10*3/uL (0.00-0.03); Imm Gran Pct Auto 0.4 % (0.0-0.4); Lymphocytes Absolute Auto 3.6 X10*3/uL (1.2-4.9); Lymphocytes Percent Auto 31.2 % (20-40); Mean Corpuscular HGB Conc 33.9 g/dl (31.0-35.0); Mean Corpuscular Hemoglobin 30.8 pg (27.0-33.0); Mean Platelet Volume 11.5 fL (9.4-12.3); Monocytes Absolute Auto 0.7 X10*3/uL (0.1-1.2); Monocytes Percent Auto 6.2 % (2-11); Neutrophils Absolute Auto 7.1 x10*3/uL (2.0-8.3); Neutrophils Percent Auto 61.8 % (45-73); Platelet Count 180 X10*3/uL (160-400); Red Blood Count 3.89 X10*6/uL (4.20-5.50); Red Cell Distribution Width 13.2 % (11.0-16.0); White Blood Count 11.4 X10*3/uL (4.8-10.8)
== END 2023-06-27 09:02 | disposition home or self-care (01) ==
LOC: HO.LABR 09:01
PROVIDERS: Visit Provider Clinical Nurse Specialist Psychiatric/Mental Health, Adult
DX: Z79.899 Other long term (current) drug therapy (principal)
CPT/HCPCS: 36415; 85025

== ENCOUNTER 2023-07-27 11:14 | Outpatient (REF) | payer MEDICARE, MEDICAID, SELFPAY ==
[2023-07-27 11:25] LABS: MANUAL DIFF FLAG NO
[2023-07-27 11:36] LABS: Basophils Absolute Auto 0.1 X10*3/uL (0.0-0.2); Basophils Percent Auto 0.4 % (0-2); Hemoglobin 13.1 g/dl (12.0-16.0); Imm Gran Abs Auto 0.08 X10*3/uL (0.00-0.03); Imm Gran Pct Auto 0.5 % (0.0-0.4); Lymphocytes Absolute Auto 3.9 X10*3/uL (1.2-4.9); Lymphocytes Percent Auto 24.3 % (20-40); Mean Corpuscular HGB Conc 33.6 g/dl (31.0-35.0); Mean Corpuscular Hemoglobin 31.3 pg (27.0-33.0); Mean Corpuscular Volume 93.3 fL (80.0-98.0); Mean Platelet Volume 11.7 fL (9.4-12.3); Monocytes Absolute Auto 0.9 X10*3/uL (0.1-1.2); Monocytes Percent Auto 5.6 % (2-11); Neutrophils Absolute Auto 11.2 x10*3/uL (2.0-8.3); Neutrophils Percent Auto 69.2 % (45-73); Platelet Count 214 X10*3/uL (160-400); Red Blood Count 4.18 X10*6/uL (4.20-5.50); Red Cell Distribution Width 13.2 % (11.0-16.0); White Blood Count 16.1 X10*3/uL (4.8-10.8)
== END 2023-07-27 11:15 | disposition home or self-care (01) ==
LOC: HO.LAB 11:14
PROVIDERS: Visit Provider Clinical Nurse Specialist Psychiatric/Mental Health, Adult
DX: Z79.899 Other long term (current) drug therapy (principal)
CPT/HCPCS: 36415; 85025

== ENCOUNTER 2023-08-23 12:12 | Outpatient (REF) | payer MEDICARE, MEDICAID, SELFPAY ==
[2023-08-23 12:24] LABS: MANUAL DIFF FLAG NO
[2023-08-23 13:41] LABS: Basophils Absolute Auto 0.1 X10*3/uL (0.0-0.2); Basophils Percent Auto 0.6 % (0-2); Hematocrit 38.5 % (37.0-47.0); Hemoglobin 12.8 g/dl (12.0-16.0); Imm Gran Abs Auto 0.03 X10*3/uL (0.00-0.03); Imm Gran Pct Auto 0.3 % (0.0-0.4); Lymphocytes Absolute Auto 4.3 X10*3/uL (1.2-4.9); Mean Corpuscular HGB Conc 33.2 g/dl (31.0-35.0); Mean Corpuscular Hemoglobin 30.7 pg (27.0-33.0); Mean Corpuscular Volume 92.3 fL (80.0-98.0); Mean Platelet Volume 12.1 fL (9.4-12.3); Monocytes Absolute Auto 0.8 X10*3/uL (0.1-1.2); Neutrophils Absolute Auto 5.9 x10*3/uL (2.0-8.3); Neutrophils Percent Auto 53.1 % (45-73); Platelet Count 217 X10*3/uL (160-400); Red Blood Count 4.17 X10*6/uL (4.20-5.50); Red Cell Distribution Width 13.2 % (11.0-16.0); White Blood Count 11.1 X10*3/uL (4.8-10.8)
== END 2023-08-23 12:13 | disposition home or self-care (01) ==
LOC: HO.LABR 12:12
PROVIDERS: PCP Internal Medicine; Visit Provider Clinical Nurse Specialist Psychiatric/Mental Health, Adult
DX: Z79.899 Other long term (current) drug therapy (principal)
CPT/HCPCS: 36415; 85025

== ENCOUNTER 2023-09-27 12:37 | Outpatient (REF) | payer MEDICARE, MEDICAID, SELFPAY ==
[2023-09-27 12:51] LABS: MANUAL DIFF FLAG NO
[2023-09-27 14:48] LABS: Basophils Absolute Auto 0.1 X10*3/uL (0.0-0.2); Basophils Percent Auto 0.4 % (0-2); Hematocrit 36.6 % (37.0-47.0); Hemoglobin 12.2 g/dl (12.0-16.0); Imm Gran Abs Auto 0.04 X10*3/uL (0.00-0.03); Imm Gran Pct Auto 0.3 % (0.0-0.4); Lymphocytes Absolute Auto 4.3 X10*3/uL (1.2-4.9); Lymphocytes Percent Auto 30.4 % (20-40); Mean Corpuscular HGB Conc 33.3 g/dl (31.0-35.0); Mean Corpuscular Hemoglobin 30.7 pg (27.0-33.0); Mean Corpuscular Volume 92.2 fL (80.0-98.0); Mean Platelet Volume 11.6 fL (9.4-12.3); Monocytes Percent Auto 6.8 % (2-11); Neutrophils Absolute Auto 8.7 x10*3/uL (2.0-8.3); Neutrophils Percent Auto 62.1 % (45-73); Platelet Count 260 X10*3/uL (160-400); Red Blood Count 3.97 X10*6/uL (4.20-5.50); Red Cell Distribution Width 12.9 % (11.0-16.0)
== END 2023-09-27 12:38 | disposition home or self-care (01) ==
LOC: HO.LABR 12:37
PROVIDERS: PCP Internal Medicine; Visit Provider Clinical Nurse Specialist Psychiatric/Mental Health, Adult
DX: Z79.899 Other long term (current) drug therapy (principal)
CPT/HCPCS: 36415; 85025

== ENCOUNTER 2023-10-29 10:19 | Outpatient (REF) | payer MEDICARE, MEDICAID, SELFPAY ==
[2023-10-29 11:09] LABS: Basophils Absolute Auto 0.1 X10*3/uL (0.0-0.2); Basophils Percent Auto 0.2 % (0-2); Hematocrit 35.1 % (37.0-47.0); Hemoglobin 11.8 g/dl (12.0-16.0); Imm Gran Abs Auto 0.16 X10*3/uL (0.00-0.03); Imm Gran Pct Auto 0.7 % (0.0-0.4); Lymphocytes Absolute Auto 3.1 X10*3/uL (1.2-4.9); Lymphocytes Percent Auto 13.7 % (20-40); MANUAL DIFF FLAG SCAN; Mean Corpuscular HGB Conc 33.6 g/dl (31.0-35.0); Mean Corpuscular Hemoglobin 31.3 pg (27.0-33.0); Mean Corpuscular Volume 93.1 fL (80.0-98.0); Mean Platelet Volume 11.6 fL (9.4-12.3); Monocytes Absolute Auto 2.1 X10*3/uL (0.1-1.2); Monocytes Percent Auto 9.4 % (2-11); Neutrophils Absolute Auto 17.1 x10*3/uL (2.0-8.3); Platelet Count 207 X10*3/uL (160-400); Red Blood Count 3.77 X10*6/uL (4.20-5.50); Red Cell Distribution Width 13.2 % (11.0-16.0); SCAN SMEAR FLAG 1; WBCANC 22.6 X10*3/uL; White Blood Count 22.6 X10*3/uL (4.8-10.8)
[2023-10-29 11:40] LABS: SLIDE REVIEW VERIFIED
== END 2023-10-29 10:20 | disposition home or self-care (01) ==
LOC: HO.LABR 10:19
PROVIDERS: Visit Provider Clinical Nurse Specialist Psychiatric/Mental Health, Adult
DX: Z79.899 Other long term (current) drug therapy (principal)
CPT/HCPCS: 36415; 85025

== ENCOUNTER 2023-10-31 10:53 | Outpatient (AMB) | payer MEDICARE, MEDICAID, SELFPAY ==
--- NOTE | 2023-10-31 11:38 | AM.OFFWIN_ITS ---
Intake Vital Signs 10/31/23 11:48 Height 5 ft 7 in Weight 159 lb BMI 24.9 BP 114/76 Blood Pressure Location Lt brachial Position Sitting Pulse 107 H Pulse Source Pulse Oximeter Temp 97.9 F Temp Source Temporal Artery Scan Pulse Oximetry (%) 97 Oxygen Delivery Method Room Air Intake Visit Reasons: Body aches, chills Parking Lot [employer] [place] Intake Note: pt is here today for body aches chills started 1 week ago Patient Tobacco Use Status: Never used Tobacco Allergies No Known Allergies [No Known Allergies*] Allergy (Verified 10/31/23 11:38) Do you need a note to return to daycare/school/sports/work: Yes HPI HPI Comments History of Present Illness Details 57 y/o female who presents to walk in [facility] with c/o body aches and chills x 1 week. PFSH Social History Patient Tobacco Use Status: Never used Tobacco Review of Systems Const All systems reviewed & are unremarkable except as noted in HPI and below Physical Exam Vital Signs: Last Vital Signs Temp 97.9 F 10/31/23 11:48 Pulse 107 H 10/31/23 11:48 BP 114/76 10/31/23 11:48 Pulse Ox 97 10/31/23 11:48 Oxygen Delivery Method Room Air 10/31/23 11:48 BMI result Body Mass Index 24.9 Const General: no acute distress HEENT Head: Yes No palpable skull fracture present and Yes normocephalic Ears: external ears normal and TM's normal bilaterally General nose exam: Abnormal mucous membranes and turbinates present boggy and erythematous Face and sinus: Yes sinuses nontender Resp Effort & Inspection: normal respiratory effort, able to speak in complete sentences and no cough Auscultation: clear to auscultation bilaterally, no crackles, no rales, no rhonchi and no wheezes Cardio Rate: regular rate Rhythm: regular rhythm Assessment & Plan Assessment & Plan (1) Body aches: Code(s): R52 - Pain, unspecified Plan: - Acetaminophen for pain relief - SARS (2) URI, acute: Code(s): J06.9 - Acute upper respiratory infection, unspecified Plan: - Acetaminophen for pain relief - SARS Orders: Orders SARS-CoV2/FLU/RSV Today J06.9 - Acute upper respiratory infection, unspecified, R52 - Pain, unspecified Medications: New acetaminophen 1,000 mg (2 x 500 mg) PO Q6H PRN 30 caps 0RF fever J06.9 - Acute upper respiratory infection, unspecified, R52 - Pain, unspecified Coding Level of Care Code Est Pt Level 3 (02916) Diagnoses Body aches R52 URI, acute J06.9 Time Spent (min) 15
[2023-10-31 11:48] VITALS: BP 114/76; PULSE 107; TEMP 36.6; O2SAT 97; BMI 24.9
== END 2023-10-31 13:03 | disposition home or self-care (01) ==
PROVIDERS: PCP Internal Medicine; Visit Provider Nurse Practitioner Family
DX: R52 Pain, unspecified (principal); J06.9 Acute upper respiratory infection, unspecified
CPT/HCPCS: 99213

== ENCOUNTER 2023-10-31 12:14 | Outpatient (REF) | payer MEDICARE, MEDICAID, SELFPAY ==
[2023-10-31 16:13] LABS: Influenza A PCR NEGATIVE (Negative); Influenza B PCR NEGATIVE (Negative); Resp Syncy Virus RNA Qual PCR NEGATIVE (Negative); SARS COV2 PCR INHOUSE NEGATIVE (Negative)
== END 2023-10-31 12:15 | disposition home or self-care (01) ==
LOC: HO.LAB 12:14
PROVIDERS: Visit Provider Nurse Practitioner Family
DX: Z11.52 Encounter for screening for COVID-19 (principal); Z20.822 Contact with and (suspected) exposure to COVID-19; R52 Pain, unspecified; J06.9 Acute upper respiratory infection, unspecified
CPT/HCPCS: 0241U

== ENCOUNTER 2023-12-25 12:30 | Outpatient (REF) | payer MEDICARE, MEDICAID, SELFPAY ==
[2023-12-25 12:54] LABS: MANUAL DIFF FLAG NO
[2023-12-25 12:58] LABS: Basophils Absolute Auto 0.1 X10*3/uL (0.0-0.2); Basophils Percent Auto 0.4 % (0-2); Hematocrit 34.1 % (37.0-47.0); Hemoglobin 11.6 g/dl (12.0-16.0); Imm Gran Abs Auto 0.04 X10*3/uL (0.00-0.03); Imm Gran Pct Auto 0.3 % (0.0-0.4); Lymphocytes Absolute Auto 4.9 X10*3/uL (1.2-4.9); Mean Corpuscular Hemoglobin 31.2 pg (27.0-33.0); Mean Corpuscular Volume 91.7 fL (80.0-98.0); Mean Platelet Volume 11.9 fL (9.4-12.3); Monocytes Absolute Auto 0.9 X10*3/uL (0.1-1.2); Monocytes Percent Auto 6.9 % (2-11); Neutrophils Percent Auto 54.4 % (45-73); Platelet Count 188 X10*3/uL (160-400); Red Blood Count 3.72 X10*6/uL (4.20-5.50); Red Cell Distribution Width 13.9 % (11.0-16.0); White Blood Count 12.8 X10*3/uL (4.8-10.8)
== END 2023-12-25 12:31 | disposition home or self-care (01) ==
LOC: HO.LABR 12:30
PROVIDERS: Visit Provider Clinical Nurse Specialist Psychiatric/Mental Health, Adult
DX: Z79.899 Other long term (current) drug therapy (principal)
CPT/HCPCS: 36415; 85025

== ENCOUNTER 2024-01-22 11:46 | Outpatient (REF) | payer MEDICARE, MEDICAID, SELFPAY ==
[2024-01-22 12:08] LABS: MANUAL DIFF FLAG NO
[2024-01-22 12:32] LABS: Basophils Absolute Auto 0.1 X10*3/uL (0.0-0.2); Basophils Percent Auto 0.5 % (0-2); Hematocrit 34.3 % (37.0-47.0); Hemoglobin 11.5 g/dl (12.0-16.0); Imm Gran Abs Auto 0.04 X10*3/uL (0.00-0.03); Imm Gran Pct Auto 0.3 % (0.0-0.4); Lymphocytes Absolute Auto 4.3 X10*3/uL (1.2-4.9); Lymphocytes Percent Auto 34.9 % (20-40); Mean Corpuscular HGB Conc 33.5 g/dl (31.0-35.0); Mean Corpuscular Hemoglobin 31.1 pg (27.0-33.0); Mean Corpuscular Volume 92.7 fL (80.0-98.0); Mean Platelet Volume 11.4 fL (9.4-12.3); Monocytes Absolute Auto 0.8 X10*3/uL (0.1-1.2); Monocytes Percent Auto 6.2 % (2-11); Neutrophils Absolute Auto 7.2 x10*3/uL (2.0-8.3); Neutrophils Percent Auto 58.1 % (45-73); Platelet Count 195 X10*3/uL (160-400); Red Cell Distribution Width 13.5 % (11.0-16.0); White Blood Count 12.4 X10*3/uL (4.8-10.8)
== END 2024-01-22 11:47 | disposition home or self-care (01) ==
LOC: HO.LABR 11:46
PROVIDERS: Visit Provider Clinical Nurse Specialist Psychiatric/Mental Health, Adult
DX: Z13.89 Encounter for screening for other disorder (principal)
CPT/HCPCS: 36415; 85025

== ENCOUNTER 2024-01-25 02:11 | Inpatient (IN) | payer MEDICARE, MEDICAID, SELFPAY ==
[2024-01-25] VITALS (7 sets, daily range): BP systolic 93–132; BP diastolic 52–93; PULSE 80–109; RESP 14–18; TEMP 36.2–37; O2SAT 97–100; BMI 22.4; BMI 21.5
--- NOTE | 2024-01-25 | ECG_ITS ---
Test Reason : CHECK QTC INTERVAL Blood Pressure : / mmHG Vent. Rate : 094 BPM Atrial Rate : 094 BPM P-R Int : 144 ms QRS Dur : 080 ms QT Int : 370 ms P-R-T Axes : 072 077 020 degrees QTc Int : 462 ms Normal sinus rhythm Normal ECG When compared with ECG of 12-OCT-2011 16:03, No significant change was found Referred By: Vivek Sandoval Electronically Signed By:Cali Wilkinson
[2024-01-25 02:59] LABS: Basophils Absolute Auto 0.1 X10*3/uL (0.0-0.2); Basophils Percent Auto 0.5 % (0-2); Hematocrit 35.7 % (37.0-47.0); Hemoglobin 12.6 g/dl (12.0-16.0); Imm Gran Abs Auto 0.02 X10*3/uL (0.00-0.03); Imm Gran Pct Auto 0.2 % (0.0-0.4); Lymphocytes Percent Auto 32.7 % (20-40); MANUAL DIFF FLAG NO; Mean Corpuscular HGB Conc 35.3 g/dl (31.0-35.0); Mean Corpuscular Hemoglobin 31.7 pg (27.0-33.0); Mean Corpuscular Volume 89.9 fL (80.0-98.0); Mean Platelet Volume 11.6 fL (9.4-12.3); Monocytes Absolute Auto 0.6 X10*3/uL (0.1-1.2); Neutrophils Absolute Auto 5.4 x10*3/uL (2.0-8.3); Neutrophils Percent Auto 59.6 % (45-73); Platelet Count 186 X10*3/uL (160-400); Red Blood Count 3.97 X10*6/uL (4.20-5.50); Red Cell Distribution Width 13.5 % (11.0-16.0); White Blood Count 9.1 X10*3/uL (4.8-10.8)
[2024-01-25 03:24] LABS: Alanine Aminotransferase 10 U/L (0-31); Albumin Level 4.3 g/dL (3.5-5.0); Alkaline Phosphatase 90 U/L (39-117); Anion Gap 15 (12-20); Aspartate Amino Transferase 12 U/L (5-31); Bilirubin Total 0.3 mg/dL (0.0-1.0); Blood Urea Nitrogen 19 mg/dL (9-16); Calcium 10.2 mg/dL (8.4-10.2); Carbon Dioxide 23 mmol/L (22-29); Chloride 108 mmol/L (96-108); Creatinine Clr Calc Pharmacy 74.5; Estimated Glomerular Filt Rate > 60; Ethanol < 10 mg/dL; Glucose Random 134 mg/dL (60-115); Potassium 3.8 mmol/L (3.3-5.1); Sodium 142 mmol/L (135-145); Total Protein 7.2 g/dL (6.5-8.0)
[2024-01-25 03:33] LABS: TSH reflex Free T4 1.88 uIU/mL (0.32-4.0)
[2024-01-25 04:12] LABS: Acetaminophen LAB < 3 mcg/mL (<30); Salicylate < 5.0 mg/dL (15-30)
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
[2024-01-25] MEDS: Sertraline HCL 25 MG TABLET PO (10:02)
[2024-01-25] MEDS: LORazepam 1 MG TABLET PO ×3 (10:03→21:09)
[2024-01-25 12:41] LABS: Appearance Urine Turbid; Color Urine Yellow; Glucose Urine UA Negative (Negative); Leukocyte Esterase Urine Large (3+) (Negative); Nitrite Urine Positive (Negative); PH 7.5 (5.0-9.0); Specific Gravity - Urine 1.015 (1.005-1.025); UMIC TRIGGER UACC YES; Urine Blood Negative (Negative); Urine Ketones Trace mg/dL (Negative); Urine Protein Negative (Neg-Trace)
[2024-01-25 12:47] LABS: Bacteria Urine 4+ (None Seen); RBC Urine 0-2 /HPF (0-2); UACC Culture Trigger YES; WBC Urine >50 /HPF (0-5)
[2024-01-25 12:57] LABS: Amphetamine Screen Urine Not Detected (Not Detect); Barbiturates, Urine Not Detected (Not Detect); Benzodiazepines Screen Urine Not Detected (Not Detect); Buprenorphine Scr Not Detected (Not Detect); Cannabinoid Screen Urine Not Detected (Not Detect); Cocaine Screen Urine Not Detected (Not Detect); Fentanyl, urine Not Detected (Not Detect); Methadone Screen, Urine Not Detected (Not Detect); Opiate Screen Urine Not Detected (Not Detect); Oxycodone Screen Urine Not Detected (Not Detect); Phencyclidine Screen Urine Not Detected (Not Detect)
[2024-01-25] MEDS: cloZAPine 100 MG TABLET 200 MG PO (16:55)
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
[2024-01-25] MEDS: cloZAPine 100 MG TABLET PO (21:09)
[2024-01-26 07:43] VITALS: BP 75/43; PULSE 101; RESP 20; TEMP 36.6; O2SAT 98
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
[2024-01-26 09:05] VITALS: BP 113/61; PULSE 90; RESP 16; O2SAT 96
[2024-01-26] MEDS: LORazepam 1 MG TABLET PO ×3 (09:08→21:05)
[2024-01-26] MEDS: Sertraline HCL 25 MG TABLET PO (09:08)
[2024-01-26] MEDS: cloZAPine 100 MG TABLET 200 MG PO ×2 (09:18→15:51)
[2024-01-26 09:43] LABS: Estimated Average Glucose 123 mg/dL; Hemoglobin A1c % 5.9 % (<6.0)
[2024-01-26 09:49] LABS: Cholesterol 187 mg/dL (<200); HDL Cholesterol 40 mg/dL (>40); LDL Cholesterol Calculated 124 mg/dL (<100); Triglycerides 115 mg/dL (<150)
[2024-01-26 10:04] LABS: Free T4 (Free Thyroxine) 0.99 ng/dL (0.71-1.85); Thyroid Stimulating Hormone 0.57 uIU/mL (0.32-4.0)
[2024-01-26 12:11] LABS: Folate 12.5 ng/mL (> or = 4.0)
[2024-01-26] MEDS: Nicotine 14 MG PATCH.TD24 TRANSDERMA (12:16)
[2024-01-26 13:39] LABS: Vitamin B12 535 pg/mL (200-900)
[2024-01-26 20:00] VITALS: BP 71/48; PULSE 119; RESP 18; TEMP 37.1; O2SAT 99
[2024-01-26] MEDS: cloZAPine 100 MG TABLET PO (21:05)
[2024-01-26 22:00] VITALS: BP 112/76; PULSE 109
[2024-01-27] MEDS: Nicotine Polacrilex 2 MG GUM BUCCAL (06:17)
[2024-01-27 07:36] VITALS: BP 99/68; PULSE 113; RESP 18; TEMP 36.7; O2SAT 99
[2024-01-27] MEDS: LORazepam 1 MG TABLET PO ×3 (08:42→20:34)
[2024-01-27] MEDS: Sertraline HCL 25 MG TABLET PO (08:42)
[2024-01-27] MEDS: Nicotine 14 MG PATCH.TD24 TRANSDERMA (08:44)
[2024-01-27] MEDS: cloZAPine 100 MG TABLET 200 MG PO ×2 (09:21→15:43)
--- NOTE | 2024-01-27 15:53 | P.PNPSI_ITS ---
Subjective Subjective Date of Service: 01/27/24 Reason For Visit: Depression Subjective Notes: Grimm Warning and Section 12B Guardianship: No Interim History: Patient seen. She is more relaxed and less anxious. Had a visit with her yesterday and they talked and we decided we don't want a divorce. Feels better. She says I am not a threat to myself or others. I was just having a breakdown. She was offered a CV again and Grimm warning explained again to her. Patient continued to decline. Denies SI/HI. Denies depression. Medication Compliance: Yes Review of Systems Review of Systems All other systems are reviewed and are negative Constitutional: Reports as per HPI and Reports no additional constitutional complaints Eyes: Reports as per HPI and Reports no additional eye complaints Reports system reviewed and no additional complaints, except as documented Cardiovascular: Reports as per HPI and Reports no additional cardiovascular complaints Respiratory: Reports as per HPI and Reports no additional respiratory complaints Gastrointestinal: Reports as per HPI and Reports no additional gastrointestinal complaints Genitourinary: Reports no additional female genitourinary complaints Musculoskeletal: Reports no additional musculoskeletal complaints Skin/Breast: Reports system reviewed and no additional complaints, except as docu Psychiatric: Reports no additional psychiatric complaints Endocrine: Reports no additional endocrine complaints Hematologic/Lymphatic: Reports no additional hematologic/lymphatic complaints Allergic/Immunologic: Reports no additional allergic/immunologic complaints Reports system reviewed and no additional complaints, except as documented and Reports Abnormal speech present Mental Status Exam Mental Status Exam Patient Appearance: Disheveled, Unkempt and Malodorous Patient Orientation: Person, Place, Time and Situation Level of Consciousness: Awake Patient Behavior: Dependent, Talkative, Cooperative, Restless and Good Eye Contact Mood Description: Depressed, Anxious and Nervous Affect Description: Anxious Ability to Follow Directions: Good Speech Pattern: Clear, Spontaneous Speech and Excessive Memory Description: Remote Impaired Diagnostics Vital Signs (24Hr): Vital Signs - 24 hr 01/26/24 20:00 01/26/24 22:00 01/27/24 07:36 Temperature 98.8 F 98.0 F Pulse Rate 119 H 109 H 113 H Respiratory Rate 18 18 Blood Pressure 71/48 L 112/76 99/68 Pulse Oximetry 99 99 Oxygen Delivery Method Room Air Room Air BMI result Body Mass Index 21.5 Labs 01/25/24 02:50 01/25/24 02:50 Labs: Laboratory Results - last 48 hr 01/26/24 08:39 Estimat Average Glucose 123 Hemoglobin A1c % 5.9 Triglycerides 115 Cholesterol 187 LDL Cholesterol, Calc 124 H HDL Cholesterol 40 L Vitamin B12 535 Folate 12.5 TSH 0.57 Free T4 0.99 Medications Medications Current Medications Acetaminophen (Acetaminophen 325 Mg Tablet) 650 mg PO Q6H PRN PRN Reason: Headache/Pain Mild Scale (1-3) Al Hydroxide/Mg Hydroxide (Magnesium Hydrox/Alum Hydrox 30 Ml Oral.Susp) 30 ml PO Q6H PRN PRN Reason: Heartburn/Nausea Clozapine (Clozapine 100 Mg Tablet) 100 mg PO BEDTIME [facility] Last Admin: 01/26/24 21:05 Dose: 100 mg Clozapine (Clozapine 100 Mg Tablet) 200 mg PO BID@1000,1600 [facility] Last Admin: 01/27/24 15:43 Dose: 200 mg Hydroxyzine HCl (Hydroxyzine Hcl 25 Mg Tablet) 25 mg PO Q6H PRN PRN Reason: Anxiety Lorazepam (Lorazepam 1 Mg Tablet) 1 mg PO TID [facility] Last Admin: 01/27/24 15:43 Dose: 1 mg Magnesium Hydroxide (Milk Of Magnesia 30 Ml Oral.Susp) 30 ml PO DAILY PRN PRN Reason: Constipation Nicotine (Nicotine 14 Mg Patch.Td24) 14 mg TRANSDERMA DAILY [facility] Last Admin: 01/27/24 08:44 Dose: 14 mg Nicotine Polacrilex (Nicotine Polacrilex 2 Mg Gum) 2 mg BUCCAL Q2H PRN PRN Reason: Nicotine Cravings Last Admin: 01/27/24 06:17 Dose: 2 mg Sertraline HCl (Sertraline Hcl 25 Mg Tablet) 25 mg PO DAILY [facility] Last Admin: 01/27/24 08:42 Dose: 25 mg Trazodone HCl (Trazodone Hcl 50 Mg Tablet) 50 mg PO BEDTIME MRX1 PRN PRN Reason: Insomnia Allergies Allergies Allergy/AdvReac Type Severity Reaction Status Date / Time flu shot AdvReac Dizziness Uncoded 01/25/24 02:39 Assessment & Plan Assessment & Plan (1) Schizophrenia, chronic condition: Status: Acute Code(s): F20.9 - Schizophrenia, unspecified (2) Adjustment disorder with anxiety: Status: Acute Code(s): F43.22 - Adjustment disorder with anxiety Plan 58 yo with chronic schizophrenia admitted after increased anxiety and depression in the setting of marital discord. She has poor self care and her child welfare social worker describes her state as decompensated. She is already feeling relieved after her told her he doesn't want a divorce. Plan: - Admit to inpatient psychiatry - CV - Collateral information from family and providers. - Milieu treatment and group therapy. - Medications: Continue OP medications. - Social work evaluation. - Disposition planning. 01/26: continue current management and treatment plan. Reason for continued inpatient stay Substantial Risk for: rapid decompensation Time Spent With Patient Time: Total time managing care of this patient today ____ minutes.
[2024-01-27 20:00] VITALS: BP 103/56; PULSE 93; RESP 16; TEMP 36.9; O2SAT 100
[2024-01-27] MEDS: cloZAPine 100 MG TABLET PO (20:34)
[2024-01-28 07:45] VITALS: BP 79/52; PULSE 108; RESP 14; TEMP 36.7; O2SAT 97
[2024-01-28] MEDS: Nicotine 14 MG PATCH.TD24 TRANSDERMA (08:40)
[2024-01-28] MEDS: LORazepam 1 MG TABLET PO ×3 (08:40→20:53)
[2024-01-28] MEDS: Sertraline HCL 25 MG TABLET PO (08:40)
[2024-01-28] MEDS: cloZAPine 100 MG TABLET 200 MG PO ×2 (10:03→15:30)
--- NOTE | 2024-01-28 10:47 | HO.PSYCHPN ---
Subjective Subjective Date of Service: 01/28/24 Reason For Visit: Depression Interim History: Patient seen. She reports she has been engaged in groups, more relaxed, using coping skills. She continues to refuse to sign in. My told me not to sign anything. She is relieved she and her are working through the situation that brought her to the hospital and that they won't divorce. She says I am not a threat to myself or others. I was just having a breakdown. Denies SI/HI. Denies depression. Denies hallucinations. She showered. Review of Systems Review of Systems All other systems are reviewed and are negative Constitutional: Reports as per HPI and Reports no additional constitutional complaints Eyes: Reports as per HPI and Reports no additional eye complaints Reports system reviewed and no additional complaints, except as documented Cardiovascular: Reports as per HPI and Reports no additional cardiovascular complaints Respiratory: Reports as per HPI and Reports no additional respiratory complaints Gastrointestinal: Reports as per HPI and Reports no additional gastrointestinal complaints Genitourinary: Reports no additional female genitourinary complaints Musculoskeletal: Reports no additional musculoskeletal complaints Skin/Breast: Reports system reviewed and no additional complaints, except as docu Psychiatric: Reports no additional psychiatric complaints Endocrine: Reports no additional endocrine complaints Hematologic/Lymphatic: Reports no additional hematologic/lymphatic complaints Allergic/Immunologic: Reports no additional allergic/immunologic complaints Reports system reviewed and no additional complaints, except as documented and Reports Abnormal speech present Mental Status Exam Mental Status Exam Patient Appearance: Disheveled, Unkempt and Malodorous Patient Orientation: Person, Place, Time and Situation Level of Consciousness: Awake Patient Behavior: Dependent, Talkative, Cooperative, Restless and Good Eye Contact Mood Description: Depressed, Anxious and Nervous Affect Description: Anxious Ability to Follow Directions: Good Speech Pattern: Clear, Spontaneous Speech and Excessive Memory Description: Remote Impaired Diagnostics Vital Signs (24Hr): Vital Signs - 24 hr 01/27/24 20:00 01/28/24 07:45 Temperature 98.5 F 98.1 F Pulse Rate 93 108 H Respiratory Rate 16 14 Blood Pressure 103/56 L 79/52 L Pulse Oximetry 100 97 Oxygen Delivery Method Room Air Room Air BMI result Body Mass Index 21.5 Labs 01/25/24 02:50 01/25/24 02:50 Labs: Laboratory Results - last 48 hr 01/26/24 08:39 Vitamin B12 535 Folate 12.5 Medications Medications Current Medications Acetaminophen (Acetaminophen 325 Mg Tablet) 650 mg PO Q6H PRN PRN Reason: Headache/Pain Mild Scale (1-3) Al Hydroxide/Mg Hydroxide (Magnesium Hydrox/Alum Hydrox 30 Ml Oral.Susp) 30 ml PO Q6H PRN PRN Reason: Heartburn/Nausea Clozapine (Clozapine 100 Mg Tablet) 100 mg PO BEDTIME [facility] Last Admin: 01/27/24 20:34 Dose: 100 mg Clozapine (Clozapine 100 Mg Tablet) 200 mg PO BID@1000,1600 [facility] Last Admin: 01/28/24 10:03 Dose: 200 mg Hydroxyzine HCl (Hydroxyzine Hcl 25 Mg Tablet) 25 mg PO Q6H PRN PRN Reason: Anxiety Lorazepam (Lorazepam 1 Mg Tablet) 1 mg PO TID [facility] Last Admin: 01/28/24 08:40 Dose: 1 mg Magnesium Hydroxide (Milk Of Magnesia 30 Ml Oral.Susp) 30 ml PO DAILY PRN PRN Reason: Constipation Nicotine (Nicotine 14 Mg Patch.Td24) 14 mg TRANSDERMA DAILY [facility] Last Admin: 01/28/24 08:40 Dose: 14 mg Nicotine Polacrilex (Nicotine Polacrilex 2 Mg Gum) 2 mg BUCCAL Q2H PRN PRN Reason: Nicotine Cravings Last Admin: 01/27/24 06:17 Dose: 2 mg Sertraline HCl (Sertraline Hcl 25 Mg Tablet) 25 mg PO DAILY [facility] Last Admin: 01/28/24 08:40 Dose: 25 mg Trazodone HCl (Trazodone Hcl 50 Mg Tablet) 50 mg PO BEDTIME MRX1 PRN PRN Reason: Insomnia Allergies Allergies Allergy/AdvReac Type Severity Reaction Status Date / Time flu shot AdvReac Dizziness Uncoded 01/25/24 02:39 Assessment & Plan Assessment & Plan (1) Schizophrenia, chronic condition: Status: Acute Code(s): F20.9 - Schizophrenia, unspecified (2) Adjustment disorder with anxiety: Status: Acute Code(s): F43.22 - Adjustment disorder with anxiety Plan 58 yo with chronic schizophrenia admitted after increased anxiety and depression in the setting of marital discord. She has poor self care and her wafer polishing lead worker describes her state as decompensated. She is already feeling relieved after her told her he doesn't want a divorce. Plan: - Admit to inpatient psychiatry - CV - Collateral information from family and providers. - Milieu treatment and group therapy. - Medications: Continue OP medications. - Social work evaluation. - Disposition planning. 01/26: continue current management and treatment plan. 01/27: continue current management and treatment plan. Reason for continued inpatient stay Substantial Risk for: inability to function and rapid decompensation Time Spent With Patient Time: Total time managing care of this patient today ____ minutes.
[2024-01-28 15:04] VITALS: BP 83/52; PULSE 101; RESP 16
[2024-01-28 15:10] VITALS: BP 104/67; PULSE 98
--- NOTE | 2024-01-28 15:23 | MHC.CLN ---
NUTRITION CONSULT FOR POOR PO AND RECENT WEIGHT LOSS. REVIEW OF WEIGHT HX SHOWS SIGNIFICANT WEIGHT LOSS X 3 MONTHS. WEIGHT LOSS 22#, 13.7% X 3 MONTHS. DIET=REGULAR. PROVIDER ADDED ENSURE TID. SUPPLEMENT PROVIDES 1050 KCALS, 60 G PROTEIN. RECOMMEND CONTINUE CURRENT DIET AND SUPPLEMENT.
[2024-01-28 20:45] VITALS: BP 86/60; PULSE 101; RESP 16; TEMP 36.6; O2SAT 99
[2024-01-28] MEDS: cloZAPine 100 MG TABLET PO (20:53)
[2024-01-29 07:05] VITALS: BP 94/62; PULSE 108; RESP 16; TEMP 36.6; O2SAT 99
[2024-01-29] MEDS: Nicotine 14 MG PATCH.TD24 TRANSDERMA (08:38)
[2024-01-29] MEDS: LORazepam 1 MG TABLET PO ×3 (08:39→20:31)
[2024-01-29] MEDS: Sertraline HCL 25 MG TABLET PO (08:39)
[2024-01-29] MEDS: cloZAPine 100 MG TABLET 200 MG PO ×2 (10:00→16:30)
[2024-01-29 10:37] VITALS: BP 84/62; PULSE 88
--- NOTE | 2024-01-29 13:52 | HO.PSYCHPN ---
Subjective Subjective Date of Service: 01/29/24 Reason For Visit: Depression Interim History: feeling well, more linear and logical and better able to think today. interested in discharge soon. informed she will be discharged upon expiry of her three-day notice. denies UTI Sx. per staff, 12b up 01/30. dep 2 anx mild. ate 3 ensures only yesterday. prays, meditates. had nervous breakdown three nights ago. taking meds. low BPs. denies AH or smelling poison. Mental Status Exam Mental Status Exam Narrative: adequately dressed and groomed. cooperative. no PMA/PMR. speech incr amount, nml rate and loudness, decr latency. thoughts linear and logical. affect full range, normo-intense, non-labile. mood not assessed. no SI/HI/AVH expressed. Diagnostics Vital Signs (24Hr): Vital Signs - 24 hr 01/28/24 15:04 01/28/24 15:10 01/28/24 20:45 Temperature 97.8 F Pulse Rate 101 H 98 101 H Respiratory Rate 16 16 Blood Pressure 83/52 L 104/67 86/60 L Pulse Oximetry 99 Oxygen Delivery Method Room Air 01/29/24 07:05 01/29/24 10:37 Temperature 97.9 F Pulse Rate 108 H 88 Respiratory Rate 16 Blood Pressure 94/62 84/62 L Pulse Oximetry 99 Oxygen Delivery Method Room Air BMI result Body Mass Index 21.5 Labs 01/25/24 02:50 01/25/24 02:50 Medications Medications Current Medications Acetaminophen (Acetaminophen 325 Mg Tablet) 650 mg PO Q6H PRN PRN Reason: Headache/Pain Mild Scale (1-3) Al Hydroxide/Mg Hydroxide (Magnesium Hydrox/Alum Hydrox 30 Ml Oral.Susp) 30 ml PO Q6H PRN PRN Reason: Heartburn/Nausea Clozapine (Clozapine 100 Mg Tablet) 100 mg PO BEDTIME [facility] Last Admin: 01/28/24 20:53 Dose: 100 mg Clozapine (Clozapine 100 Mg Tablet) 200 mg PO BID@1000,1600 [facility] Last Admin: 01/29/24 10:00 Dose: 200 mg Hydroxyzine HCl (Hydroxyzine Hcl 25 Mg Tablet) 25 mg PO Q6H PRN PRN Reason: Anxiety Lorazepam (Lorazepam 1 Mg Tablet) 1 mg PO TID [facility] Last Admin: 01/29/24 08:39 Dose: 1 mg Magnesium Hydroxide (Milk Of Magnesia 30 Ml Oral.Susp) 30 ml PO DAILY PRN PRN Reason: Constipation Nicotine (Nicotine 14 Mg Patch.Td24) 14 mg TRANSDERMA DAILY [facility] Last Admin: 01/29/24 08:38 Dose: 14 mg Nicotine Polacrilex (Nicotine Polacrilex 2 Mg Gum) 2 mg BUCCAL Q2H PRN PRN Reason: Nicotine Cravings Last Admin: 01/27/24 06:17 Dose: 2 mg Sertraline HCl (Sertraline Hcl 25 Mg Tablet) 25 mg PO DAILY [facility] Last Admin: 01/29/24 08:39 Dose: 25 mg Trazodone HCl (Trazodone Hcl 50 Mg Tablet) 50 mg PO BEDTIME MRX1 PRN PRN Reason: Insomnia Allergies Allergies Allergy/AdvReac Type Severity Reaction Status Date / Time flu shot AdvReac Dizziness Uncoded 01/25/24 02:39 Assessment & Plan Assessment & Plan (1) Schizophrenia, chronic condition: Status: Acute Code(s): F20.9 - Schizophrenia, unspecified (2) Adjustment disorder with anxiety: Status: Acute Code(s): F43.22 - Adjustment disorder with anxiety Plan 58 yo with chronic schizophrenia admitted after increased anxiety and depression in the setting of marital discord. She has poor self care and her iron worker describes her state as decompensated. She is already feeling relieved after her told her he doesn't want a divorce. Plan: - Admit to inpatient psychiatry - CV - Collateral information from family and providers. - Milieu treatment and group therapy. - Medications: Continue OP medications. - Social work evaluation. - Disposition planning. 01/26: continue current management and treatment plan. 01/27: continue current management and treatment plan. 01/28: start bactrim for presumed UTI. planning to discharge on expiry of 3-day notice . Reason for continued inpatient stay Substantial Risk for: inability to function and rapid decompensation Time Spent With Patient Time: Total time managing care of this patient today __25__ minutes.
[2024-01-29] MEDS: Sulfamethox/Trimeth 800/160 TABLET 1 TAB PO ×2 (14:51→20:31)
--- NOTE | 2024-01-29 14:53 | PC.NURSE ---
Ativan administered to patient as ordered at 1453. Unable toscan barcode due to rip in bar code. GR RN witness to patient administration/ripped bar code.
[2024-01-29 16:28] LABS: Clozapine (Clozaril) 591 mcg/L; Norclozapine 460 mcg/L (25-400)
[2024-01-29 20:00] VITALS: BP 90/57; PULSE 95; RESP 16; TEMP 36.6; O2SAT 99
[2024-01-29] MEDS: cloZAPine 100 MG TABLET PO (20:31)
[2024-01-30] MEDS: Nicotine Polacrilex 2 MG GUM BUCCAL (05:05)
[2024-01-30 07:25] VITALS: BP 99/63; PULSE 97; RESP 22; TEMP 36.4; O2SAT 98
[2024-01-30] MEDS: Nicotine 14 MG PATCH.TD24 TRANSDERMA (07:45)
[2024-01-30] MEDS: Sulfamethox/Trimeth 800/160 TABLET 1 TAB PO ×2 (07:46→20:15)
[2024-01-30] MEDS: Sertraline HCL 25 MG TABLET PO (07:46)
[2024-01-30] MEDS: LORazepam 1 MG TABLET PO ×3 (07:46→20:15)
[2024-01-30] MEDS: cloZAPine 100 MG TABLET 200 MG PO ×2 (09:17→15:45)
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
[2024-01-30] MEDS: Acetaminophen 325 MG TABLET 650 MG PO (13:24)
[2024-01-30 20:00] VITALS: BP 95/57; PULSE 105; RESP 16; TEMP 36.5; O2SAT 100
[2024-01-30] MEDS: cloZAPine 100 MG TABLET PO (20:15)
[2024-01-31] MEDS: Nicotine Polacrilex 2 MG GUM BUCCAL (04:46)
[2024-01-31 07:00] VITALS: BMI 21.7
[2024-01-31] MEDS: Nicotine 14 MG PATCH.TD24 TRANSDERMA (07:34)
[2024-01-31 07:37] VITALS: BP 110/74; PULSE 107; RESP 14; TEMP 36.4; O2SAT 100
[2024-01-31] MEDS: Sulfamethox/Trimeth 800/160 TABLET 1 TAB PO (08:20)
[2024-01-31] MEDS: Sertraline HCL 25 MG TABLET PO (08:20)
[2024-01-31] MEDS: LORazepam 1 MG TABLET PO (08:21)
[2024-01-31] MEDS: cloZAPine 100 MG TABLET 200 MG PO (09:56)
== END 2024-01-31 11:18 | disposition home or self-care (01) | DRG 882 ==
LOC: HO.ED 12:15 → HO.PADLT16 13:42
PROVIDERS: Emergency Medicine; Admitting Provider Psychiatry & Neurology Psychiatry; Emergency Provider Emergency Medicine Emergency Medical Services; Visit Provider Psychiatry & Neurology Psychiatry
DX: F43.22 Adjustment disorder with anxiety (principal); F20.9 Schizophrenia, unspecified; Z87.891 Personal history of nicotine dependence; Z79.899 Other long term (current) drug therapy
CPT/HCPCS: 36415; 80053; 80061; 80143; 80159; 80179; 80307; 81001; 82607; 82746; 83036; 84439; 84443; 85025; 87086; 87088; 87186; 93005; 99285; S9485

== ENCOUNTER 2024-01-25 13:39 | Outpatient (BNV) | payer MEDICARE, MEDICAID, SELFPAY | END 2024-01-25 14:21 | PROVIDERS: Admitting Provider Psychiatry & Neurology Psychiatry; Emergency Provider Emergency Medicine Emergency Medical Services; Visit Provider Internal Medicine Cardiovascular Disease | DX: F20.9 Schizophrenia, unspecified (principal); F43.22 Adjustment disorder with anxiety | CPT/HCPCS: 93010 ==

== ENCOUNTER → 2024-01-25 13:39 | Outpatient (BNV) | payer MEDICARE, MEDICAID, SELFPAY | PROVIDERS: Admitting Provider Psychiatry & Neurology Psychiatry; Emergency Provider Emergency Medicine Emergency Medical Services; Visit Provider Psychiatry & Neurology Psychiatry | DX: F20.9 Schizophrenia, unspecified (principal); F43.22 Adjustment disorder with anxiety | CPT/HCPCS: 90792; 99231; 99232; 99239 ==

== ENCOUNTER 2024-02-20 14:14 | Outpatient (REF) | payer MEDICARE, MEDICAID, SELFPAY ==
[2024-02-20 14:36] LABS: MANUAL DIFF FLAG NO
[2024-02-20 15:41] LABS: Basophils Absolute Auto 0.1 X10*3/uL (0.0-0.2); Basophils Percent Auto 0.9 % (0-2); Hematocrit 31.5 % (37.0-47.0); Hemoglobin 10.8 g/dl (12.0-16.0); Imm Gran Abs Auto 0.02 X10*3/uL (0.00-0.03); Imm Gran Pct Auto 0.2 % (0.0-0.4); Lymphocytes Absolute Auto 4.5 X10*3/uL (1.2-4.9); Lymphocytes Percent Auto 43.6 % (20-40); Mean Corpuscular HGB Conc 34.3 g/dl (31.0-35.0); Mean Corpuscular Volume 93.2 fL (80.0-98.0); Mean Platelet Volume 11.4 fL (9.4-12.3); Monocytes Absolute Auto 0.7 X10*3/uL (0.1-1.2); Neutrophils Percent Auto 48.3 % (45-73); Platelet Count 208 X10*3/uL (160-400); Red Blood Count 3.38 X10*6/uL (4.20-5.50); Red Cell Distribution Width 13.8 % (11.0-16.0); White Blood Count 10.4 X10*3/uL (4.8-10.8)
== END 2024-02-20 14:15 | disposition home or self-care (01) ==
LOC: HO.LABR 14:14
PROVIDERS: Visit Provider Clinical Nurse Specialist Psychiatric/Mental Health, Adult
DX: Z79.899 Other long term (current) drug therapy (principal)
CPT/HCPCS: 36415; 85025

== ENCOUNTER 2024-03-19 16:10 | Outpatient (REF) | payer MEDICARE, MEDICAID, SELFPAY ==
[2024-03-19 16:32] LABS: MANUAL DIFF FLAG NO
[2024-03-19 17:32] LABS: Basophils Absolute Auto 0.1 X10*3/uL (0.0-0.2); Basophils Percent Auto 0.5 % (0-2); Hematocrit 32.9 % (37.0-47.0); Imm Gran Abs Auto 0.02 X10*3/uL (0.00-0.03); Imm Gran Pct Auto 0.2 % (0.0-0.4); Lymphocytes Absolute Auto 4.1 X10*3/uL (1.2-4.9); Lymphocytes Percent Auto 39.8 % (20-40); Mean Corpuscular HGB Conc 33.4 g/dl (31.0-35.0); Mean Corpuscular Hemoglobin 31.5 pg (27.0-33.0); Mean Corpuscular Volume 94.3 fL (80.0-98.0); Mean Platelet Volume 11.7 fL (9.4-12.3); Monocytes Absolute Auto 0.7 X10*3/uL (0.1-1.2); Monocytes Percent Auto 6.4 % (2-11); Neut%MD 53.1 %; Neutrophils Absolute Auto 5.4 x10*3/uL (2.0-8.3); Neutrophils Percent Auto 53.1 % (45-73); Platelet Count 202 X10*3/uL (160-400); Red Blood Count 3.49 X10*6/uL (4.20-5.50); Red Cell Distribution Width 13.6 % (11.0-16.0); WBCANC 10.2 X10*3/uL; White Blood Count 10.2 X10*3/uL (4.8-10.8)
== END 2024-03-19 16:11 | disposition home or self-care (01) ==
LOC: HO.LABR 16:10
PROVIDERS: PCP Internal Medicine; Visit Provider Clinical Nurse Specialist Psychiatric/Mental Health, Adult
DX: Z79.899 Other long term (current) drug therapy (principal)
CPT/HCPCS: 36415; 85025

== ENCOUNTER 2024-04-17 12:30 | Outpatient (REF) | payer MEDICARE, MEDICAID, SELFPAY ==
[2024-04-17 12:55] LABS: MANUAL DIFF FLAG NO
[2024-04-17 13:44] LABS: Basophils Percent Auto 0.4 % (0-2); Hematocrit 30.9 % (37.0-47.0); Hemoglobin 10.4 g/dl (12.0-16.0); Imm Gran Abs Auto 0.02 X10*3/uL (0.00-0.03); Imm Gran Pct Auto 0.2 % (0.0-0.4); Lymphocytes Absolute Auto 4.4 X10*3/uL (1.2-4.9); Lymphocytes Percent Auto 46.6 % (20-40); Mean Corpuscular HGB Conc 33.7 g/dl (31.0-35.0); Mean Corpuscular Volume 92.2 fL (80.0-98.0); Mean Platelet Volume 11.5 fL (9.4-12.3); Monocytes Absolute Auto 0.7 X10*3/uL (0.1-1.2); Monocytes Percent Auto 7.3 % (2-11); Neutrophils Absolute Auto 4.3 x10*3/uL (2.0-8.3); Neutrophils Percent Auto 45.5 % (45-73); Platelet Count 202 X10*3/uL (160-400); Red Blood Count 3.35 X10*6/uL (4.20-5.50); Red Cell Distribution Width 13.4 % (11.0-16.0); White Blood Count 9.4 X10*3/uL (4.8-10.8)
== END 2024-04-17 12:31 | disposition home or self-care (01) ==
LOC: HO.LABR 12:30
PROVIDERS: PCP Internal Medicine; Visit Provider Clinical Nurse Specialist Psychiatric/Mental Health, Adult
DX: Z79.899 Other long term (current) drug therapy (principal)
CPT/HCPCS: 36415; 85025

== ENCOUNTER 2024-05-21 11:31 | Outpatient (REF) | payer MEDICARE, MEDICAID, SELFPAY ==
[2024-05-21 11:54] LABS: MANUAL DIFF FLAG NO
[2024-05-21 13:30] LABS: Basophils Absolute Auto 0.1 X10*3/uL (0.0-0.2); Basophils Percent Auto 0.6 % (0-2); Hematocrit 33.8 % (37.0-47.0); Hemoglobin 11.4 g/dl (12.0-16.0); Imm Gran Abs Auto 0.03 X10*3/uL (0.00-0.03); Imm Gran Pct Auto 0.3 % (0.0-0.4); Lymphocytes Absolute Auto 4.5 X10*3/uL (1.2-4.9); Lymphocytes Percent Auto 43.6 % (20-40); Mean Corpuscular HGB Conc 33.7 g/dl (31.0-35.0); Mean Corpuscular Hemoglobin 31.2 pg (27.0-33.0); Mean Corpuscular Volume 92.6 fL (80.0-98.0); Mean Platelet Volume 11.7 fL (9.4-12.3); Monocytes Absolute Auto 0.7 X10*3/uL (0.1-1.2); Monocytes Percent Auto 7.2 % (2-11); Neutrophils Percent Auto 48.3 % (45-73); Platelet Count 199 X10*3/uL (160-400); Red Blood Count 3.65 X10*6/uL (4.20-5.50); Red Cell Distribution Width 13.8 % (11.0-16.0); White Blood Count 10.3 X10*3/uL (4.8-10.8)
== END 2024-05-21 11:32 | disposition home or self-care (01) ==
LOC: HO.LABR 11:31
PROVIDERS: Visit Provider Clinical Nurse Specialist Psychiatric/Mental Health, Adult
DX: Z79.899 Other long term (current) drug therapy (principal)
CPT/HCPCS: 36415; 85025

== ENCOUNTER 2024-06-20 12:41 | Outpatient (REF) | payer MEDICARE, MEDICAID, SELFPAY ==
[2024-06-20 13:17] LABS: MANUAL DIFF FLAG NO
[2024-06-20 13:31] LABS: Basophils Absolute Auto 0.1 X10*3/uL (0.0-0.2); Basophils Percent Auto 0.5 % (0-2); Hematocrit 34.3 % (37.0-47.0); Hemoglobin 11.5 g/dl (12.0-16.0); Imm Gran Abs Auto 0.03 X10*3/uL (0.00-0.03); Imm Gran Pct Auto 0.3 % (0.0-0.4); Lymphocytes Absolute Auto 4.3 X10*3/uL (1.2-4.9); Mean Corpuscular HGB Conc 33.5 g/dl (31.0-35.0); Mean Corpuscular Hemoglobin 30.7 pg (27.0-33.0); Mean Corpuscular Volume 91.5 fL (80.0-98.0); Mean Platelet Volume 10.9 fL (9.4-12.3); Monocytes Absolute Auto 0.6 X10*3/uL (0.1-1.2); Monocytes Percent Auto 5.6 % (2-11); Neut%MD 55.6 %; Neutrophils Absolute Auto 6.3 x10*3/uL (2.0-8.3); Neutrophils Percent Auto 55.6 % (45-73); Platelet Count 194 X10*3/uL (160-400); Red Blood Count 3.75 X10*6/uL (4.20-5.50); Red Cell Distribution Width 13.8 % (11.0-16.0); WBCANC 11.4 X10*3/uL; White Blood Count 11.4 X10*3/uL (4.8-10.8)
== END 2024-06-20 12:42 | disposition home or self-care (01) ==
LOC: HO.LABR 12:41
PROVIDERS: Visit Provider Clinical Nurse Specialist Psychiatric/Mental Health, Adult
DX: Z79.899 Other long term (current) drug therapy (principal)
CPT/HCPCS: 36415; 85025

== ENCOUNTER 2024-07-18 11:36 | Outpatient (REF) | payer MEDICARE, MEDICAID, SELFPAY ==
[2024-07-18 11:48] LABS: MANUAL DIFF FLAG NO
[2024-07-18 12:43] LABS: Basophils Percent Auto 0.4 % (0-2); Hemoglobin 11.9 g/dl (12.0-16.0); Imm Gran Abs Auto 0.04 X10*3/uL (0.00-0.03); Imm Gran Pct Auto 0.4 % (0.0-0.4); Lymphocytes Absolute Auto 4.2 X10*3/uL (1.2-4.9); Lymphocytes Percent Auto 36.8 % (20-40); Mean Corpuscular Hemoglobin 31.6 pg (27.0-33.0); Mean Corpuscular Volume 93.1 fL (80.0-98.0); Mean Platelet Volume 11.5 fL (9.4-12.3); Monocytes Absolute Auto 0.7 X10*3/uL (0.1-1.2); Monocytes Percent Auto 6.4 % (2-11); Neutrophils Absolute Auto 6.4 x10*3/uL (2.0-8.3); Platelet Count 196 X10*3/uL (160-400); Red Blood Count 3.76 X10*6/uL (4.20-5.50); White Blood Count 11.3 X10*3/uL (4.8-10.8)
== END 2024-07-18 11:37 | disposition home or self-care (01) ==
LOC: HO.LAB 11:36
PROVIDERS: PCP Internal Medicine; Visit Provider Clinical Nurse Specialist Psychiatric/Mental Health, Adult
DX: Z79.899 Other long term (current) drug therapy (principal)
CPT/HCPCS: 36415; 85025

== ENCOUNTER 2024-08-12 11:26 | Outpatient (REF) | payer MEDICARE, MEDICAID, SELFPAY ==
[2024-08-12 12:13] LABS: Basophils Absolute Auto 0.1 X10*3/uL (0.0-0.2); Basophils Percent Auto 0.5 % (0-2); Hemoglobin 11.7 g/dl (12.0-16.0); Imm Gran Abs Auto 0.06 X10*3/uL (0.00-0.03); Imm Gran Pct Auto 0.5 % (0.0-0.4); Lymphocytes Absolute Auto 5.3 X10*3/uL (1.2-4.9); Lymphocytes Percent Auto 40.7 % (20-40); MANUAL DIFF FLAG SCAN; Mean Corpuscular HGB Conc 33.4 g/dl (31.0-35.0); Mean Corpuscular Hemoglobin 31.4 pg (27.0-33.0); Mean Corpuscular Volume 93.8 fL (80.0-98.0); Mean Platelet Volume 11.1 fL (9.4-12.3); Monocytes Absolute Auto 0.7 X10*3/uL (0.1-1.2); Monocytes Percent Auto 5.1 % (2-11); Neutrophils Absolute Auto 6.9 x10*3/uL (2.0-8.3); Neutrophils Percent Auto 53.2 % (45-73); Platelet Count 202 X10*3/uL (160-400); Red Blood Count 3.73 X10*6/uL (4.20-5.50); Red Cell Distribution Width 13.6 % (11.0-16.0); SCAN SMEAR FLAG 1
[2024-08-12 13:29] LABS: SLIDE REVIEW VERIFIED
--- OUTSIDE RECORDS SUMMARY | 2024-08-13 20:44 | XMS_ITS | Clinical Summary ---
Author Organization Unknown Care Team Providers Care Bookseamer Blindstitch Name Role Phone JANELL GARVEY, HAIM Unavailable Unavailable MAK العراقي, LILIAN Unavailable Unavailable HUBERT العراقي, JUSTO Unavailable Unavailable Payers Payer Name Policy Type Policy Number Effective Date Expira tion Date [place] [id number] ON DEMAND MEDICARE - FORMERLY [facility] BILLING - ABN [id number] Problems Condition Name Condition Details Condition Category Status Onset Date Resolution Date Last Treatment Date Treating Clinician Comments DEPRESSION, UNSPECIFIED Active 01-30 00:00: 00 ANXIETY DISORDER, UNSPECIFIED Active 01-30 00:00: 00 SCHIZOPHRENI A, UNSPECIFIED Active 01-30 00:00: 00 OBSESSIVE-CO MPULSIVE DISORDER, UNSPECIFIED Active 01-30 00:00: 00 ADJUSTMENT DISORDER WITH ANXIETY Active 01-30 00:00: 00 Allergies, Adverse Reactions, Alerts Allergy Name Allergy Type Status Severity Reaction(s) Onset Date Inactive Date Treating Clinician Comments FLU VACCINATION Propensity to adverse reactions Active 02-10 12:42: 42 Medications Ordered Medication Name Filled Medication Name Start Date Stop Date Current Medication? Ordering Clinician Indication Dosage Frequency Signature (SIG) Comments Components Ativan 0.5 mg tablet 12-21 00:00: 00 10-10 23:59 :00 No [id number] 0.5 mg 2 TIMES DAILY 0.5 mg 2 TIMES DAILY (route: oral) Med Classific ation: Central Nervous System Agents Ativan 0.5 mg tablet 12-21 00:00: 00 11-29 23:59 :00 No [id number] 1 mg DAILY 1 mg DAILY (route: oral) Med Classific ation: Central Nervous System Agents clozapine 100 mg tablet 12-21 00:00: 00 08-16 23:59 :00 No [id number] 100 mg 3 TIMES DAILY 100 mg 3 TIMES DAILY (route: oral) Med Classific ation: Central Nervous System Agents sertraline 50 mg tablet 4-20 00:00: 00 11-15 23:59 :00 No [id number] 50 mg DAILY 50 mg DAILY (route: oral) Med Classific ation: Central Nervous System Agents Clozaril 100 mg tablet 2019-09-14 00:00: 00 08-22 23:59 :00 No [id number] 200 mg 3 TIMES DAILY 200 mg 3 TIMES DAILY (route: oral) Med Classific ation: Central Nervous System Agents Ativan 1 mg tablet 2-07 00:00: 00 11-29 23:59 :00 No [id number] 1 mg 2 TIMES DAILY 1 mg 2 TIMES DAILY (route: oral) Med Classific ation: Central Nervous System Agents Ativan 0.5 mg tablet - 00:00: 00 08-16 23:59 :00 No [id number] 1 tablet BEDTIME 1 tablet BEDTIME (route: oral) Med Classific ation: Central Nervous System Agents Ativan 1 mg tablet - 00:00: 00 08-20 23:59 :00 No [id number] 1 mg DIRECTED 1 mg DIRECTED (route: oral) Med Classific ation: Central Nervous System Agents Ativan 1 mg tablet 2022-09 2-19 00:00: 00 08-22 23:59 :00 No [id number] 1 mg 3 TIMES DAILY 1 mg 3 TIMES DAILY (route: oral) Med Classific ation: Central Nervous System Agents Ativan 1 mg tablet 2022-09 2-18 00:00: 00 02-01 00:00 :00 No [id number] 1 tablet 2 TIMES DAILY 1 tablet 2 TIMES DAILY (route: oral) Med Classific ation: Central Nervous System Agents Ativan 1 mg tablet 2022-09 2-18 00:00: 00 02-01 00:00 :00 No [id number] 1 tablet DAILY 1 tablet DAILY (route: oral) Med Classific ation: Central Nervous System Agents Clozaril 100 mg tablet 2022-09 2-21 00:00: 01-31 23:59 :00 No [id number] 200 mg 3 TIMES DAILY 200 mg 3 TIMES DAILY (route: oral) Med Classific ation: Central Nervous System Agents Zoloft 50 mg tablet 11-28 00:00: 00 01-31 23:59 :00 No [id number] 1 tablet EVERY AM 1 tablet EVERY AM (route: oral) Med Classific ation: Central Nervous System Agents Ativan 1 mg tablet 02-01 00:00: 00 Yes [id number] 1 tablet NOON 1 tablet NOON (route: oral) Med Classific ation: Central Nervous System Agents Ativan 1 mg tablet 02-01 00:00: 00 Yes [id number] 1 tablet 2 TIMES DAILY 1 tablet 2 TIMES DAILY (route: oral) Med Classific ation: Central Nervous System Agents Clozaril 100 mg tablet 02-01 00:00: 00 Yes [id number] 200 mg DIRECTED 200 mg DIRECTED (route: oral) Med Classific ation: Central Nervous System Agents Zoloft 25 mg tablet 02-01 00:00: 00 Yes [id number] 1 tablet EVERY AM 1 tablet EVERY AM (route: oral) Med Classific ation: Central Nervous System Agents nicotine 14 mg/24 hr daily transdermal patch 02-13 00:00: 00 Yes [id number] 1 patch, transde rmal 24 hours DAILY 1 patch, transderma l 24 hours DAILY (route: transderma l) Med Classific ation: Chemical Dependenc y, Agents to Treat Plan of Treatment Planned Activity Planned Date Details Comments Future Scheduled Test SKILLED NU RSE TO EVALUATE PATIENT, IDENTIFY PRIMARY AND CO-MORBID CONDITIONS CODED PER CODING GUIDELINES, AND DEVELOP PATIENT SPECIFIC PLAN OF CARE THAT INCLUDES PATIENT GOAL FOR HOME HEALTH. [code = SKILLED NURSE TO EVALUATE PATIENT, IDENTIFY PRIMARY AND CO-MORBID CONDITIONS CODED PER CODING GUIDELINES, AND DEVELOP PATIENT SPECIFIC PLAN OF CARE THAT INCLUDES PATIENT GOAL FOR HOME HEALTH.] Future Scheduled Test SKILLED NU RSE TO O/A OF PATIENTS MENTAL/BEHAVIORAL STATUS, ASSESS VITAL SIGNS NEEDED OR REQUESTED, ALLOW 2 PRNS FOR MEDICATION MANAGEMENT. [code = SKILLED NURSE TO O/A OF PATIENTS MENTAL/BEHAVIORAL STATUS, ASSESS VITAL SIGNS NEEDED OR REQUESTED, ALLOW 2 PRNS FOR MEDICATION MANAGEMENT.] Future Scheduled Test SKILLED NU RSE WILL MAINTAIN SITUATIONAL AWARENESS FOR SAFETY AND WILL NOTIFY CLINICAL CLIENT MANAGER LARGE LAW AND PHYSICIAN/PROVIDER WITH ANY CHANGE IN CONDITION. [code = SKILLED NURSE WILL MAINTAIN SITUATIONAL AWARENESS FOR SAFETY AND WILL NOTIFY CLINICAL CLIENT MANAGER LARGE LAW AND PHYSICIAN/PROVIDER WITH ANY CHANGE IN CONDITION.] Future Scheduled Test SKILLED NU RSE TO PRE-POUR MEDICATION PER MEDICATION LIST WEEKLY. [code = SKILLED NURSE TO PRE-POUR MEDICATION PER MEDICATION LIST WEEKLY.] Future Scheduled Test SKILLED NU RSE FOR O/A AND SKILLED TEACHING RELATED TO MANAGEMENT OF DEPRESSIVE SYMPTOMS AND/OR DEPRESSION. SN TO REPORT SIGNIFICANT CHANGE IN DEPRESSIVE SYMPTOMS TO CLINICAL PROVIDER FOR EARLY INTERVENTION. [code = SKILLED NURSE FOR O/A AND SKILLED TEACHING RELATED TO MANAGEMENT OF DEPRESSIVE SYMPTOMS AND/OR DEPRESSION. SN TO REPORT SIGNIFICANT CHANGE IN DEPRESSIVE SYMPTOMS TO CLINICAL PROVIDER FOR EARLY INTERVENTION.] Future Scheduled Test SKILLED NU RSE FOR O/A AND SKILLED TEACHING OF COPING SKILLS TO MANAGE ANXIETY AND MAINTAIN SAFETY. [code = SKILLED NURSE FOR O/A AND SKILLED TEACHING OF COPING SKILLS TO MANAGE ANXIETY AND MAINTAIN SAFETY.] Future Scheduled Test SKILLED NU RSE FOR O/A OF ALTERED THOUGHT PROCESS AND/OR DISRUPTION IN COGNITIVE OPERATIONS AND ACTIVITIES. [code = SKILLED NURSE FOR O/A OF ALTERED THOUGHT PROCESS AND/OR DISRUPTION IN COGNITIVE OPERATIONS AND ACTIVITIES.] Future Scheduled Test SKILLED NU RSE TO ASSESS PATIENTS PSYCHOSOCIAL STATUS TO IDENTIFY POTENTIAL ISSUES THAT MAY COMPLICATE THE PROVISION OF THE PLAN OF CARE INCLUDING THE PATIENTS ABILITY TO ACCESS COMMUNITY RESOURCES AND PSYCHOSOCIAL SUPPORT SERVICES. [code = SKILLED NURSE TO ASSESS PATIENTS PSYCHOSOCIAL STATUS TO IDENTIFY POTENTIAL ISSUES THAT MAY COMPLICATE THE PROVISION OF THE PLAN OF CARE INCLUDING THE PATIENTS ABILITY TO ACCESS COMMUNITY RESOURCES AND PSYCHOSOCIAL SUPPORT SERVICES.] Future Scheduled Test SKILLED NU RSE FOR O/A OF CLIENT'S SOCIAL ISOLATION AND PROVIDE ASSISTANCE TO CLIENT IN DEVELOPMENT OF PLANNED ACTIVITIES [code = SKILLED NURSE FOR O/A OF CLIENT'S SOCIAL ISOLATION AND PROVIDE ASSISTANCE TO CLIENT IN DEVELOPMENT OF PLANNED ACTIVITIES] Future Scheduled Test MEDICATION S WILL BE HELD AND STORED IN LOCKBOX [code = MEDICATIONS WILL BE HELD AND STORED IN LOCKBOX] Future Scheduled Test SKILLED NU RSE MAY PICKUP AND TRANSPORT MEDICATIONS [code = SKILLED NURSE MAY PICKUP AND TRANSPORT MEDICATIONS] Goal 2024-05-27 Patient Goal - S LAVELLE A NON SMOKER, STAY CALM Goal 2024-04-01 Patient Goal - S LAVELLE A NON SMOKER, STAY CALM Goal 2024-07-25 Patient Goal - S LAVELLE A NON SMOKER, STAY CALM Goal Provider Goal - A PLAN OF CARE WILL BE ESTABLISHED THAT MEETS PATIENT'S MCC NEEDS AND INCLUDES PATIENT GOAL FOR HOME HEALTH. Goal Provider Goal - ALTERED MENTAL/BEHAVIORAL STATUS WILL BE IDENTIFIED PROMPTLY AND INTERVENTION INITIATED QUICKLY TO MINIMIZE ASSOCIATED RISKS THROUGHOUT CERTIFICATION PERIOD. Goal Provider Goal - PATIENT WILL REMAIN SAFE IN THE COMMUNITY AND WILL BE FREE OF DANGER TO SELF AND OTHERS THROUGHOUT THE CERTIFICATION PERIOD. Goal Provider Goal - PATIENT WILL COMPLY WITH MEDICATION WHEN SKILLED NURSE PRE-POURS MEDICATION THROUGHOUT CERTIFICATION PERIOD. Goal Provider Goal - PATIENT WILL REMAIN SAFE WITHOUT DECOMPENSATION IN DEPRESSIVE CONDITION, WHILE MAINTAINING OPTIMAL LEVEL OF MENTAL HEALTH AND WELL BEING THROUGHOUT CERTIFICATION PERIOD. Goal Provider Goal - PATIENT WILL BE ABLE TO PERFORM DAILY FUNCTIONS AND HAVE OPTIMAL IMPROVEMENT IN LEVEL OF ANXIETY THROUGHOUT CERTIFICATION PERIOD. Goal Provider Goal - PATIENT WILL BE ABLE TO PERFORM DAILY FUNCTIONS AND HAVE OPTIMAL IMPROVEMENT IN THOUGHT PROCESS THROUGHOUT CERTIFICATION PERIOD. Goal Provider Goal - PSYCHOSOCIAL NEEDS WILL BE IDENTIFIED AND PLAN IMPLEMENTED TO MINIMIZE RISK THROUGHOUT CERTIFICATION PERIOD. Goal Provider Goal - PATIENT WILL DEMONSTRATE AN INCREASED INTEREST IN SOCIALIZATION AND ACTIVITIES BY THE END OF THE CERTIFICATION PERIOD. Goal Provider Goal - MEDICATION WILL BE STORED IN LOCKBOX FOR SAFETY. Goal Provider Goal - SKILLED NURSE PICKED UP AND TRANSPORTED MEDICATIONS FOR SAFETY. Reason for Visit INDEPENDENT IN THE HOME Encounters Start Date/Time End Date/Time Encounter Type Admission Type Attending [facility] Care Department Encounter ID Discharge Date Discharge Status Discharge Condition Discharge Reason Percent Goals Met 2024-02-02 00:00:00 2024-07-25 00:00:00 Outpatient RECERTIFIC ATION MAK, LILIAN [facility] [id number] 2024-07-25 00:00:00 DISCHARGE TO HOME OR SELF CARE INDEPENDEN T IN THE HOME UNABLE TO PROVIDE ORDERED SERVICES ( ONLY) 68.75
== END 2024-08-12 11:27 | disposition home or self-care (01) ==
LOC: HO.LABR 11:26
PROVIDERS: Visit Provider Clinical Nurse Specialist Psychiatric/Mental Health, Adult
DX: Z79.899 Other long term (current) drug therapy (principal)
CPT/HCPCS: 36415; 85025

== ENCOUNTER 2024-09-30 10:59 | Outpatient (REF) | payer MEDICARE, MEDICAID, SELFPAY ==
[2024-09-30 11:15] LABS: MANUAL DIFF FLAG NO
[2024-09-30 11:48] LABS: Basophils Absolute Auto 0.1 X10*3/uL (0.0-0.2); Basophils Percent Auto 0.6 % (0-2); Hematocrit 35.4 % (37.0-47.0); Hemoglobin 11.7 g/dl (12.0-16.0); Imm Gran Abs Auto 0.03 X10*3/uL (0.00-0.03); Imm Gran Pct Auto 0.3 % (0.0-0.4); Lymphocytes Absolute Auto 3.9 X10*3/uL (1.2-4.9); Lymphocytes Percent Auto 37.4 % (20-40); Mean Corpuscular HGB Conc 33.1 g/dl (31.0-35.0); Mean Corpuscular Hemoglobin 31.1 pg (27.0-33.0); Mean Corpuscular Volume 94.1 fL (80.0-98.0); Mean Platelet Volume 10.6 fL (9.4-12.3); Monocytes Absolute Auto 0.7 X10*3/uL (0.1-1.2); Monocytes Percent Auto 6.4 % (2-11); Neutrophils Absolute Auto 5.8 x10*3/uL (2.0-8.3); Neutrophils Percent Auto 55.3 % (45-73); Platelet Count 226 X10*3/uL (160-400); Red Blood Count 3.76 X10*6/uL (4.20-5.50); Red Cell Distribution Width 13.4 % (11.0-16.0); White Blood Count 10.5 X10*3/uL (4.8-10.8)
== END 2024-09-30 11:00 | disposition home or self-care (01) ==
LOC: HO.LABR 10:59
PROVIDERS: Visit Provider Clinical Nurse Specialist Psychiatric/Mental Health, Adult
DX: Z79.899 Other long term (current) drug therapy (principal)
CPT/HCPCS: 36415; 85025

== ENCOUNTER 2024-11-06 10:56 | Outpatient (REF) | payer MEDICARE, MEDICAID, SELFPAY ==
[2024-11-06 11:10] LABS: MANUAL DIFF FLAG NO
[2024-11-06 11:17] LABS: Basophils Percent Auto 0.4 % (0-2); Imm Gran Abs Auto 0.02 X10*3/uL (0.00-0.03); Imm Gran Pct Auto 0.2 % (0.0-0.4); Lymphocytes Absolute Auto 2.4 X10*3/uL (1.2-4.9); Lymphocytes Percent Auto 26.9 % (20-40); Mean Corpuscular HGB Conc 34.4 g/dl (31.0-35.0); Mean Corpuscular Hemoglobin 32.2 pg (27.0-33.0); Mean Corpuscular Volume 93.6 fL (80.0-98.0); Mean Platelet Volume 10.3 fL (9.4-12.3); Monocytes Absolute Auto 0.7 X10*3/uL (0.1-1.2); Monocytes Percent Auto 7.3 % (2-11); Neutrophils Absolute Auto 5.9 x10*3/uL (2.0-8.3); Neutrophils Percent Auto 65.2 % (45-73); Platelet Count 182 X10*3/uL (160-400); Red Blood Count 3.42 X10*6/uL (4.20-5.50); Red Cell Distribution Width 12.8 % (11.0-16.0)
--- OUTSIDE RECORDS SUMMARY | 2024-11-06 13:20 | XMS_ITS | Encounter Summary ---
Author Organization [facility] Address [address] [place] [address] Care Team Providers Care Flame Cutting Machine Operator Name Role Phone Eloy Edgar MD Primary Care Provider [phone] Reason for Visit * Reason Onset Date Comments APPOINTMENT 11/16/2021 Encounter Details Date Type Department Care Team Description 11/16/2021 Telephone Adult Medicine [address] [id number] Eloy Edgar MD [address] [place] [id number] APPOINTMENT Social History Tobacco Use Types Packs/Day Years Used Date Smoking Tobacco: Every Day Cigarettes 1.5 30 Started: 09/03/1987 Smokeless Tobacco: Never Alcohol Use Standard Drinks/Week Comments No 0 (1 standard drink = 0.6 oz pur e alcohol) Sex Assigned at Date Recorded Not on file documented as of this encounter Miscellaneous Notes * Telephone Encounter - Huong Diehl - 11/17/2021 12:19 PM EDT MESSAGE LEFT TO CALL THE OFFICE BACK TO SCHEDULE APPOINTMENT WITH CARE TEAM. * Telephone Encounter - Tonny Ponce M.A. - 11/16/2021 9:25 AM EDT Pt nds to schedule appt prior to further rx refills. FYI to fiberglass product tester staff. documented in this encounter Plan of Treatment Not on file documented as of this encounter Visit Diagnoses Not on filedocumented in this encounter Care Teams Flame Cutting Machine Operator Relationship Specialty Start Date End Date Eloy Edgar MD [address] [place] [id number] PCP - General 01/26/11 documented as of this encounter
--- OUTSIDE RECORDS SUMMARY | 2024-11-06 13:20 | XMS_ITS | Encounter Summary ---
Author Organization [facility] Address [address] [place] [address] Care Team Providers Care Industrial Electrical Engineer Name Role Phone Eloy Edgar MD Primary Care Provider [phone] Reason for Visit * Reason Comments E-prescribe Rx Request Encounter Details Date Type Department Care Team Description 10/23/2022 Refill Adult Medicine [facility] [address] [place] [address] [id number] Eloy Edgar MD [address] [place] [id number] E-prescribe Rx Request Social History Tobacco Use Types Packs/Day Years Used Date Smoking Tobacco: Every Day Cigarettes 1.5 30 Started: 09/03/1987 Smokeless Tobacco: Never Alcohol Use Standard Drinks/Week Comments No 0 (1 standard drink = 0.6 oz pur e alcohol) Sex Assigned at Date Recorded Not on file COVID-19 Exposure Response Date Recorded In the last 10 days, have yo u been in contact with someone who was confirmed or suspected to have Coronavirus/COVID-19? No / Unsure 10/16/2022 11:45 AM EST documented as of this encounter Miscellaneous Notes * Telephone Encounter - Anthony Amezcua M.A. - 10/23/2022 12:19 PM EST Last ov 10/16/22 next ov 04/18/23 Labs scnned in from 04/2022 Lab Results Component Value Date NA 140 04/30/2020 K 4.2 04/30/2020 CO2 28 04/30/2020 CL 107 04/30/2020 BUN 15 04/30/2020 CREAT 0.79 04/30/2020 GLU 90 04/30/2020 CA 9.0 04/30/2020 GFR > 60 04/30/2020 documented in this encounter Plan of Treatment Not on file documented as of this encounter Visit Diagnoses Not on filedocumented in this encounter Care Teams Industrial Electrical Engineer Relationship Specialty Start Date End Date Eloy Edgar MD [address] [place] [id number] PCP - General 01/26/11 documented as of this encounter
--- OUTSIDE RECORDS SUMMARY | 2024-11-06 13:20 | XMS_ITS | Encounter Summary ---
Author Organization [facility] Address [address] [place] [address] Care Team Providers Care Casing Cleaner Name Role Phone Eloy Edgar MD Primary Care Provider [phone] Reason for Visit * Reason Comments E-prescribe Rx Request Encounter Details Date Type Department Care Team Description 01/13/2022 Refill Adult Medicine [address] [address] Heaven Munguia PA-C E-prescribe Rx Request Social History Tobacco Use Types Packs/Day Years Used Date Smoking Tobacco: Every Day Cigarettes 1.5 30 Started: 09/03/1987 Smokeless Tobacco: Never Alcohol Use Standard Drinks/Week Comments No 0 (1 standard drink = 0.6 oz pur e alcohol) Sex Assigned at Date Recorded Not on file documented as of this encounter Miscellaneous Notes * Telephone Encounter - China Garcia PA-C - 01/13/2022 12:45 PM EDT She does need a physical or any type of visit at least once a year, I will refill the Zoloft for her as she has a an appointment scheduled on file. I will not be able to refill any of her other medications which are strictly managed by psychiatry, I do recommend she follow-up with psychiatry regularly. * Telephone Encounter - Daiana Cheek M.A. - 01/13/2022 9:11 AM EDT Last office visit 01/28/21 Next office visit 05/26/22 with China Garcia No results found for: ALB, SGOT, SGPT, TBILI, DBILI, IBILI, ALKPHOS, TP * Telephone Encounter - Josefina Lechuga - 01/13/2022 9:09 AM EDT Patient would like script to be: E-PRESCRIBED/FAXED TO PHARMACY WHEN WAS THE PATIENT'S LAST APPOINTMENT IN ADULT MEDICINE? 01/28/21 WHEN WAS THE LAST TIME THE PATIENT SAW THEIR PCP? 04/30/20 Does patient have an upcoming appointment? Yes 05/26/22 (THE MEDICATION REQUESTED IS ON THE MED LIST ABOVE) All of the medications requested were on the CURRENT MEDS list Did you check the Pharmacy information above?: YES Patient wants: 90 -day supply Is this a mail order prescription request ? NO If the refill is from a FAXED refill request what is the RX # listed on the fax? N/A Patients current insurance carrier is: [place] / Product Type: MEDICARE [id number] documented in this encounter Plan of Treatment Not on file documented as of this encounter Visit Diagnoses Not on filedocumented in this encounter Care Teams Casing Cleaner Relationship Specialty Start Date End Date Eloy Edgar MD [address] [place] [id number] PCP - General 01/26/11 documented as of this encounter
--- OUTSIDE RECORDS SUMMARY | 2024-11-06 13:20 | XMS_ITS | Encounter Summary ---
Author Organization [facility] Address [address] [place] [address] Care Team Providers Care Fitness Professional Name Role Phone Eloy Edgar MD Primary Care Provider [phone] Encounter Details Date Type Department Care Team Description 07/26/2016 Business Doc Medical Records [address] [place] [id number] Abstract, Provider Social History Tobacco Use Types Packs/Day Years Used Date Smoking Tobacco: Every Day Cigarettes 1.5 30 Smokeless Tobacco: Never Alcohol Use Standard Drinks/Week Comments No 0 (1 standard drink = 0.6 oz pur e alcohol) Sex Assigned at Date Recorded Not on file documented as of this encounter Plan of Treatment Not on file documented as of this encounter Visit Diagnoses Not on filedocumented in this encounter Care Teams Fitness Professional Relationship Specialty Start Date End Date Eloy Edgar MD [address] [place] [address] [phone] PCP - General 01/26/11 documented as of this encounter
--- OUTSIDE RECORDS SUMMARY | 2024-11-06 13:20 | XMS_ITS | Encounter Summary ---
Author Organization [facility] Address [address] [place] [address] Care Team Providers Care Security Associate Name Role Phone Eloy Edgar MD Primary Care Provider [phone] Encounter Details Date Type Department Care Team Description 11/21/2013 Business Doc Medical Records [address] [place] [id number] Abstract, Provider Social History Tobacco Use Types Packs/Day Years Used Date Smoking Tobacco: Every Day Cigarettes 1.5 Smokeless Tobacco: Never Alcohol Use Standard Drinks/Week Comments No 0 (1 standard drink = 0.6 oz pur e alcohol) Sex Assigned at Date Recorded Not on file documented as of this encounter Plan of Treatment Not on file documented as of this encounter Visit Diagnoses Not on filedocumented in this encounter Care Teams Security Associate Relationship Specialty Start Date End Date Eloy Edgar MD [address] [place] [address] [phone] PCP - General 01/26/11 documented as of this encounter
--- OUTSIDE RECORDS SUMMARY | 2024-11-06 13:20 | XMS_ITS | Encounter Summary ---
Author Organization [facility] Address [address] [place] [address] Care Team Providers Care Social Work Associate Name Role Phone Eloy Edgar MD Primary Care Provider [phone] Encounter Details Date Type Department Care Team Description 10/04/2012 Business Doc Medical Records [address] [place] [address] Abstract, Provider Social History Tobacco Use Types [...] on filedocumented in this encounter Care Teams Social Work Associate Relationship Specialty Start Date End Date Eloy Edgar MD [address] [place] [address] [phone] PCP - General 01/26/11 documented as of this encounter
--- OUTSIDE RECORDS SUMMARY | 2024-11-06 13:20 | XMS_ITS | Encounter Summary ---
Author Organization [facility] Address [address] [place] [address] Care Team Providers Care Chief Informatics Officer Name Role Phone Eloy Edgar MD Primary Care Provider [phone] Reason for Visit * Reason Onset Date Comments Medication 06/18/2019 Encounter Details Date Type Department Care Team Description 06/18/2019 Telephone Adult Medicine [address] [phone] Eloy Edgar MD [address] [place] [address] Medication Social History Tobacco Use Types Packs/Day Years Used Date Smoking Tobacco: Every Day Cigarettes 1.5 30 Started: 09/03/1987 Smokeless Tobacco: Never Alcohol Use Standard Drinks/Week Comments No 0 (1 standard drink = 0.6 oz pur e alcohol) Sex Assigned at Date Recorded Not on file documented as of this encounter Miscellaneous Notes * Telephone Encounter - Evelyn Mishra M.A. - 06/18/2019 3:41 PM EDT rx re written * Telephone Encounter - Stacey Lechuga - 06/18/2019 3:30 PM EDT Who is calling? A pharmacist: Pharmacy: Pharmacist Name: Pharmacy Phone # Name of the medication Cetirizine HCl (ZYRTEC ALLERGY) 10 MG Cap What is the specific problem or interaction? Pharmacy calling for clarification on dosage and directions If the patient is having a problem with taking the med - how long has the problem been going on? documented in this encounter Plan of Treatment Not on file documented as of this encounter Visit Diagnoses Not on filedocumented in this encounter Care Teams Chief Informatics Officer Relationship Specialty Start Date End Date Eloy Edgar MD [address] [place], [place] [phone] PCP - General 01/26/11 documented as of this encounter
--- OUTSIDE RECORDS SUMMARY | 2024-11-06 13:20 | XMS_ITS | Encounter Summary ---
Author Organization [facility] Address [address] [place] [address] Care Team Providers Care Groundskeeper Supervisor Name Role Phone Eloy Edgar MD Primary Care Provider [phone] Reason for Visit * Reason Onset Date Comments Testing 10/22/2013 Encounter Details Date Type Department Care Team Description 10/22/2013 Telephone Adult Medicine [address] [phone] Taisha Segura MD Testing Social History Tobacco Use Types Packs/Day Years Used Date Smoking Tobacco: Every Day Cigarettes 1.5 Smokeless Tobacco: Never Alcohol Use Standard Drinks/Week Comments No 0 (1 standard drink = 0.6 oz pur e alcohol) Sex Assigned at Date Recorded Not on file documented as of this encounter Miscellaneous Notes * Telephone Encounter - Ekaterina Rodriguez - 10/22/2013 10:20 AM EST Patient said she did not want mammogram this year, said she is healthy enough and does not think she needs it mammo this year, will call to reschedule for 2015. removing order so we won't bug her about this. documented in this encounter Plan of Treatment Not on file documented as of this encounter Visit Diagnoses Not on filedocumented in this encounter Care Teams Groundskeeper Supervisor Relationship Specialty Start Date End Date Eloy Edgar MD [address] [place] [phone] PCP - General 01/26/11 documented as of this encounter
--- OUTSIDE RECORDS SUMMARY | 2024-11-06 13:20 | XMS_ITS | Encounter Summary ---
Author Organization [facility] Address [address] [place] [address] Care Team Providers Care Lavender Farm Worker Name Role Phone Eloy Edgar MD Primary Care Provider [phone] Encounter Details Date Type Department Care Team Description 09/14/2016 Business Doc Medical Records [address] [place] [address] Abstract, Provider Social History Tobacco Use Types [...] on filedocumented in this encounter Care Teams Lavender Farm Worker Relationship Specialty Start Date End Date Eloy Edgar MD [address] [place] [address] [phone] PCP - General 01/26/11 documented as of this encounter
--- OUTSIDE RECORDS SUMMARY | 2024-11-06 13:20 | XMS_ITS | Encounter Summary ---
Author Organization [facility] Address [address] [place] [address] Care Team Providers Care Railway Track Worker Name Role Phone Eloy Edgar MD Primary Care Provider [phone] Encounter Details Date Type Department Care Team Description 04/10/2011 Business Doc Medical Records [address] [place] [address] Abstract, Provider Social History Tobacco Use Types Packs/Day Years Used Date Smoking Tobacco: Every Day Cigarettes 1.5 Alcohol Use Standard Drinks/Week Comments No 0 (1 standard drink = 0.6 oz pur e alcohol) Sex Assigned at Date Recorded Not on file documented as of this encounter Plan of Treatment Not on file documented as of this encounter Visit Diagnoses Not on filedocumented in this encounter Care Teams Railway Track Worker Relationship Specialty Start Date End Date Eloy Edgar MD [address] [place] [address] [phone] PCP - General 01/26/11 documented as of this encounter
--- OUTSIDE RECORDS SUMMARY | 2024-11-06 13:20 | XMS_ITS | Encounter Summary ---
Author Organization [facility] Address [address] [place] [address] Care Team Providers Care Rn Employee Health Name Role Phone Eloy Edgar MD Primary Care Provider [phone] Encounter Details Date Type Department Care Team Description 03/27/2016 Home Health Certification Medical Records [address] [place] [address] Social History Tobacco Use Types Packs/Day Years [...] on filedocumented in this encounter Care Teams Rn Employee Health Relationship Specialty Start Date End Date Eloy Edgar MD [address] [place] [address] [phone] PCP - General 01/26/11 documented as of this encounter
== END 2024-11-06 10:57 | disposition home or self-care (01) ==
LOC: HO.LABR 10:56
PROVIDERS: PCP Internal Medicine
DX: Z79.899 Other long term (current) drug therapy (principal)
CPT/HCPCS: 36415; 85025

== ENCOUNTER 2025-02-14 10:45 | Outpatient (REF) | payer MEDICARE, MEDICAID, SELFPAY ==
[2025-02-14 11:10] LABS: MANUAL DIFF FLAG NO
[2025-02-14 11:11] LABS: Basophils Absolute Auto 0.1 X10*3/uL (0.0-0.2); Basophils Percent Auto 0.5 % (0-2); Hematocrit 28.9 % (37.0-47.0); Hemoglobin 10.2 g/dl (12.0-16.0); Imm Gran Abs Auto 0.03 X10*3/uL (0.00-0.03); Imm Gran Pct Auto 0.3 % (0.0-0.4); Lymphocytes Absolute Auto 2.6 X10*3/uL (1.2-4.9); Lymphocytes Percent Auto 26.9 % (20-40); Mean Corpuscular HGB Conc 35.3 g/dl (31.0-35.0); Mean Corpuscular Hemoglobin 32.1 pg (27.0-33.0); Mean Corpuscular Volume 90.9 fL (80.0-98.0); Mean Platelet Volume 9.8 fL (9.4-12.3); Monocytes Absolute Auto 0.6 X10*3/uL (0.1-1.2); Monocytes Percent Auto 6.5 % (2-11); Neutrophils Absolute Auto 6.4 x10*3/uL (2.0-8.3); Neutrophils Percent Auto 65.8 % (45-73); Platelet Count 161 X10*3/uL (160-400); Red Blood Count 3.18 X10*6/uL (4.20-5.50); Red Cell Distribution Width 12.7 % (11.0-16.0); White Blood Count 9.7 X10*3/uL (4.8-10.8)
== END 2025-02-14 10:46 | disposition home or self-care (01) ==
LOC: HO.LABR 10:45
DX: Z79.899 Other long term (current) drug therapy (principal)
CPT/HCPCS: 36415; 85025

== ENCOUNTER 2025-06-17 17:07 | Emergency (ER) | payer MEDICARE, MEDICAID, SELFPAY ==
--- NOTE | ~2025-06-17 | XR_ITS ---
CLINICAL HISTORY: cp EXAM: Two views of the chest. COMPARISON: None FINDINGS: Normal cardiac, mediastinal, and hilar contours. Normal heart size. No pleural effusion or pneumothorax. Lungs are clear. No acute bone finding. IMPRESSION: 1. No acute cardiopulmonary process demonstrated. This document has been electronically signed by: Zachery Gongora MD on 06/17/2025 20:27:23
[2025-06-17 17:13] VITALS: BP 124/70; PULSE 104; O2SAT 99
[2025-06-17 17:19] VITALS: BP 115/76; PULSE 105; RESP 16; TEMP 36.6; O2SAT 100; BMI 25.1
--- NOTE | 2025-06-17 17:41 | PC.NURSE ---
Med rec done with pt reporting her meds
--- NOTE | 2025-06-17 17:42 | ED.GENADULT ---
HPI - General Adult General Chief complaint: General Medical Stated complaint: anxiety Time Seen by Provider: 06/17/25 17:33 Source: patient Mode of arrival: ambulatory Limitations: no limitations History of Present Illness ED Provider: Dr. Mcdaniel HPI narrative: This is a 59-year-old female history of schizophrenia presented hospital today for evaluation of anxiety. Patient stated that she had a nervous breakdown effort having an argument with her . Patient stated that she also have chest tightness during this. Patient stated that she wants to be placed in a long-term facility. She does not want to return back to her . She denies any physical altercation denies any homicidal ideation denies any suicide ideation. Related Data Home Medications ?Medication ?Instructions ?Recorded ?Confirmed clozapine 100 mg tablet 200 mg PO BID@0900,1600 06/17/25 06/17/25 melatonin 4 mg PO BEDTIME 06/17/25 06/17/25 Previous Rx's ?Medication ?Instructions ?Recorded clozapine 100 mg tablet 100 mg PO BEDTIME 30 days #30 tabs 01/30/24 lorazepam 1 mg tablet 1 mg PO TID 30 days #90 tabs 01/30/24 nicotine 14 mg/24 hr daily 14 mg transdermal DAILY 28 days 01/30/24 transdermal patch #28 ea sertraline 25 mg tablet 25 mg PO DAILY 30 days #30 tabs 01/30/24 Allergies Allergy/AdvReac Type Severity Reaction Status Date / Time flu shot AdvReac Dizziness Uncoded 06/17/25 17:21 Review of Systems Review of Systems: Pertinent review of systems as mentioned in HPI. All other system otherwise negative. [facility] Past Medical History [facility] Narrative: Schizophrenia Social History Social History Household Members: Spouse Housing: House Do you presently have visiting nurse or other home services: No Patient Tobacco Use Status: Former Tobacco user Tobacco use type: Cigarette Smoked in Last 30 Days: No Use of substances other than those prescribed or required for medical reasons: No Advance Directives: No Advance Directives Information Provided: No Patient : No service: No Sexual orientation: Straight/Heterosexual Physical Exam ED Exam Exam: General: Pleasant, no distress, interacting appropriately Head: Normacephalic, atraumatic ENT: oral mucosa moist, neck supple, no tracheal deviation Cardiovascular: regular rate, regular rhythm, no murmurs, rubbing, gallops Respiratory: CTAB, no wheeze, rales, rhonchi Extremities: No limb pain or swelling, no calf tenderness Neurological: Awake and alert, no facial droop noted Skin: Warm and dry Psychiatric: Appropriate mood and thoughts Vital Signs: Vital Signs - 24 hr 06/17/25 17:19 06/17/25 20:12 06/18/25 06:24 Temperature 97.9 F 97.3 F 97.3 F Pulse Rate 105 H 93 79 Respiratory Rate 16 16 14 Blood Pressure 115/76 141/78 H 138/78 Pulse Oximetry 100 99 99 Oxygen Delivery Method Room Air Room Air Room Air BMI result Body Mass Index 25.1 Course Reevaluation(s) Reevaluation #1: 2:25 AM 06/18/2025 (Dr. Codey Sierra): Patient was noted to be hypochloremic hyponatremic, we will plan repeating labs after IV fluids 4:58 AM 06/18/2025 (Dr. Codey Sierra): Patient is medically cleared, sodium improved with IV fluids, she had hypovolemic hyponatremia Reevaluation #2: DR. Anderson's progress note, 06/18/2025: 07;30 VSS, no events overnight reported by nursing, under section 12, bed search is underway, continue with physician observation. Reevaluation #3: DR. Anderson's progress note: Patient is AAO x3, has no complaints, had a good night sleep, patient appeared very relaxed and stable, VSS, patient is requesting to be discharged home, stated that she has no issue with her she has been with him for over 40 years no history of abuse she just needed little break from the house and she is ready to go back now, no SI, no HI, no hallucination. 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 Discontinue physician observation now. Care team agree with the plan of discharge home. Time: 08:23 Medications Administered Discontinued Medications Generic Name Dose Route Start Last Admin Trade Name Freq PRN Reason Stop Dose Admin Sodium Chloride 1,000 mls @ 999 mls/hr 06/18/25 02:45 06/18/25 04:05 Ns IV 06/18/25 03:45 Infused .Q1H1M PINO Infusion Medical Decision Making Medical Decision Making MDM Narrative: This is a 59-year-old female history of schizophrenia presented hospital today for evaluation of ?nervous breakdown? She denies any suicide ideation denies any homicidal ideation. Patient is requesting long-term placement at this time. However patient is able to ambulate without any issues. We will obtain troponin EKG and a chest x-ray to rule out any signs of cardiac ischemia. I have low suspicion. I suspect patient has chest tightness likely secondary from her stressful event today. The patient denies any traumatic event with her . I do not see any bruising on exam. Patient's lab work did show some leukocytosis 12.0. I do not think this is sepsis. Likely secondary to dehydration. Patient also has significant hyponatremia at 123. We will plan to give patient a L IV fluid. We will plan to repeat BMP and recheck her sodium level. Patient will be signed out to oncoming provider. Differential Diagnosis Differential Diagnoses: The differential diagnosis associated with the presentation includes Anxiety attack, chest pain, ACS, CAD, Lab Data MDM Lab Attestation statement: I reviewed the patient's lab results. 06/17/25 19:44 06/18/25 04:06 Labs: Lab Results 06/17/25 06/17/25 06/17/25 Range/Units 18:22 19:44 19:45 WBC 12.0 H (4.8-10.8) X10*3/uL RBC 3.01 L (4.20-5.50) X10*6/uL Hgb 9.7 L (12.0-16.0) g/dl Hct 27.9 L (37.0-47.0) % MCV 92.7 (80.0-98.0) fL MCH 32.2 (27.0-33.0) pg MCHC 34.8 (31.0-35.0) g/dl RDW 12.2 (11.0-16.0) % Plt Count 251 D (160-400) X10*3/uL MPV 8.8 L (9.4-12.3) fL Immature Gran % (Auto) 0.4 (0.0-0.4) % Neut % (Auto) 65.2 (45-73) % Lymph % (Auto) 26.1 (20-40) % [place] % (Auto) 7.8 (2-11) % Eos % (Auto) 0.0 (0-4) % Baso % (Auto) 0.5 (0-2) % Lymph # (Auto) 3.1 (1.2-4.9) X10*3/uL [place]cer # (Auto) 0.9 (0.1-1.2) X10*3/uL Eos # (Auto) 0.0 (0.0-0.4) X10*3/uL Baso # (Auto) 0.1 (0.0-0.2) X10*3/uL Abs Immat Gran (auto) 0.05 H (0.00-0.03) X10*3/uL Absolute Neuts (auto) 7.8 (2.0-8.3) x10*3/uL Absolute Nucleated RBC 0.000 (0.0-0.012) X10*3/uL Nucleated RBC % (auto) 0.0 (0.0-0.2) /100WBC Sodium 123 L (135-145) mmol/L Potassium 4.3 (3.3-5.1) mmol/L Chloride 90 L (96-108) mmol/L Carbon Dioxide 27 (22-29) mmol/L Anion Gap 10 L (12-20) BUN 23 H (9-16) mg/dL Creatinine 0.55 (0.5-1.4) mg/dL Estim Creat Clear Calc 107.1 Estimated GFR > 60 Random Glucose 98 (60-115) mg/dL Calcium 8.9 D (8.4-10.2) mg/dL Total Bilirubin 0.2 (0.0-1.0) mg/dL AST 50 H (5-31) U/L ALT 80 H (0-31) U/L Alkaline Phosphatase 73 (39-117) U/L Troponin I High Sens < 2.7 (<3.5-17.0) ng/L Total Protein 6.3 L (6.5-8.0) g/dL Albumin 4.2 (3.5-5.0) g/dL Urine Color Yellow Urine Appearance Clear Urine pH 7.0 (5.0-9.0) Ur Specific [place] <= 1.005 (1.005-1.025) Urine Protein Negative (Neg-Trace) mg/dL Urine Glucose (UA) Negative (Negative) mg/dL Urine Ketones Negative (Negative) mg/dL Urine Blood Negative (Negative) Urine Nitrite Negative (Negative) Ur Leukocyte Esterase Negative (Negative) Urine RBC 0-2 (0-2) /HPF Urine WBC 0-5 (0-5) /HPF Ur Squamous Epith Cells 0-2 (0-2) /HPF Urine Bacteria None Seen (None Seen) Hyaline Casts 0-2 (0-2) /LPF Urine Opiates Screen Not Detected (Not Detect) Ur Buprenorphine Scrn Not Detected (Not Detect) ng/mL Ur Oxycodone Screen Not Detected (Not Detect) ng/mL Urine Methadone Screen Not Detected (Not Detect) ng/mL Urine Fentanyl Screen Not Detected (Not Detect) Ur Barbiturates Screen Not Detected (Not Detect) Ur Phencyclidine Scrn Not Detected (Not Detect) Ur Amphetamines Screen Not Detected (Not Detect) U Benzodiazepines Scrn Not Detected (Not Detect) Urine Cocaine Screen Not Detected (Not Detect) U Marijuana (THC) Screen Not Detected (Not Detect) 06/18/25 06/18/25 Range/Units 03:15 04:06 WBC (4.8-10.8) X10*3/uL RBC (4.20-5.50) X10*6/uL Hgb (12.0-16.0) g/dl Hct (37.0-47.0) % MCV (80.0-98.0) fL MCH (27.0-33.0) pg MCHC (31.0-35.0) g/dl RDW (11.0-16.0) % Plt Count (160-400) X10*3/uL MPV (9.4-12.3) fL Immature Gran % (Auto) (0.0-0.4) % Neut % (Auto) (45-73) % Lymph % (Auto) (20-40) % Mercer % (Auto) (2-11) % Eos % (Auto) (0-4) % Baso % (Auto) (0-2) % Lymph # (Auto) (1.2-4.9) X10*3/uL [place] # (Auto) (0.1-1.2) X10*3/uL Eos # (Auto) (0.0-0.4) X10*3/uL Baso # (Auto) (0.0-0.2) X10*3/uL Abs Immat Gran (auto) (0.00-0.03) X10*3/uL Absolute Neuts (auto) (2.0-8.3) x10*3/uL Absolute Nucleated RBC (0.0-0.012) X10*3/uL Nucleated RBC % (auto) (0.0-0.2) /100WBC Sodium 133 L 131 L (135-145) mmol/L Potassium 4.5 4.9 (3.3-5.1) mmol/L Chloride 99 102 (96-108) mmol/L Carbon Dioxide 26 19 L (22-29) mmol/L Anion Gap 13 15 (12-20) BUN 18 H 18 H (9-16) mg/dL Creatinine 0.55 0.54 (0.5-1.4) mg/dL Estim Creat Clear Calc 107.1 109.1 Estimated GFR > 60 > 60 Random Glucose 105 105 (60-115) mg/dL Calcium 9.7 D 8.9 D (8.4-10.2) mg/dL Total Bilirubin (0.0-1.0) mg/dL AST (5-31) U/L ALT (0-31) U/L Alkaline Phosphatase (39-117) U/L Troponin I High Sens (<3.5-17.0) ng/L Total Protein (6.5-8.0) g/dL Albumin (3.5-5.0) g/dL Urine Color Urine Appearance Urine pH (5.0-9.0) Ur Specific [place] (1.005-1.025) Urine Protein (Neg-Trace) mg/dL Urine Glucose (UA) (Negative) mg/dL Urine Ketones (Negative) mg/dL Urine Blood (Negative) Urine Nitrite (Negative) Ur Leukocyte Esterase (Negative) Urine RBC (0-2) /HPF Urine WBC (0-5) /HPF Ur Squamous Epith Cells (0-2) /HPF Urine Bacteria (None Seen) Hyaline Casts (0-2) /LPF Urine Opiates Screen (Not Detect) Ur Buprenorphine Scrn (Not Detect) ng/mL Ur Oxycodone Screen (Not Detect) ng/mL Urine Methadone Screen (Not Detect) ng/mL Urine Fentanyl Screen (Not Detect) Ur Barbiturates Screen (Not Detect) Ur Phencyclidine Scrn (Not Detect) Ur Amphetamines Screen (Not Detect) U Benzodiazepines Scrn (Not Detect) Urine Cocaine Screen (Not Detect) U Marijuana (THC) Screen (Not Detect) Discharge Plan Discharge Clinical Impression: Acute hyponatremia, Anxiety Patient Disposition: Home, Self-Care Instructions: Anxiety (ED) Prescriptions: No Action nicotine 14 mg/24 hr Patch 24 Hour 14 mg transdermal DAILY 28 Days Qty: 28 0RF clozapine 100 mg tablet 100 mg PO BEDTIME 30 Days Qty: 30 0RF sertraline 25 mg tablet 25 mg PO DAILY 30 Days Qty: 30 0RF lorazepam 1 mg tablet 1 mg PO TID 30 Days Qty: 90 0RF melatonin 4 mg PO BEDTIME clozapine 100 mg tablet 200 mg PO BID@0900,1600 Print Language: Kazakh
--- NOTE | 2025-06-17 18:14 | ECG_ITS ---
Test Reason : CHEST PAIN Blood Pressure : */* mmHG Vent. Rate : 97 BPM Atrial Rate : 97 BPM P-R Int : 190 ms QRS Dur : 88 ms QT Int : 360 ms P-R-T Axes : 59 81 18 degrees QTcB Int : 457 ms Normal sinus rhythm Possible Left atrial enlargement Low voltage QRS Borderline ECG When compared with ECG of 25-Jan-2024 14:21, No significant change was found Referred By: Lizeth Mcdaniel Electronically Signed By: Cali Wilkinson
[2025-06-17 18:30] LABS: Appearance Urine Clear; Glucose Urine UA Negative (Negative); PH 7.0 (5.0-9.0); Specific Gravity - Urine <= 1.005 (1.005-1.025)
[2025-06-17 18:39] LABS: Cannabinoid Screen Urine Not Detected (Not Detect)
--- NOTE | 2025-06-17 19:34 | PC.NURSE ---
Assumed care of patient at 1845, patient appears to be in no apparent distress at this time, calm and cooperative, laying in bed, respirations even and unlabored. Continue plan of care for medical clearance and CARE team asha
--- OUTSIDE RECORDS SUMMARY | 2025-06-17 19:34 | XMS_ITS | Clinical Summary ---
Author Organization [address] Address [address] [place] [address] Phone Care Team Providers Care Recreational Assistant Name Role Phone Eloy Edgar MD Primary Care Provider [phone] Allergies No known active allergies Medications cloZAPine (CLOZARIL) 100 mg tablet Take 200 mg by mouth at bedtime. 2 TABS 3 TIMES ADAY Active LORazepam (ATIVAN) 0.5 mg tablet Take 0.5 mg by mouth 2 times daily. Active LORazepam (ATIVAN) 1 mg tablet Take 1 mg by mouth every 6 hours as needed. Active nicotine (NICODERM CQ) 14 mg/[address] 1 Patch onto the skin every 24 hours. 02/25/2024 Active sertraline (ZOLOFT) 25 mg tablet Take 1 Tablet by mouth daily. Active Active Problems Problem Noted Date Diagnosed Date Schizophrenia (CMS/HCC V24, CMS/HCC V28) 024 Urinary, incontinence, stress female 08/18/2014 Tobacco use disorder 05/27/2014 Encounters Date Type Department Care Team Description 03/20/2025 Telephone Adult Medicine [address] [phone] Eloy Edgar MD 03/20/2025 Telephone Lung Screening Program - [address] [id number] Tamar Chen MA from Last 3 Months Surgical History Surgery Date Site/Laterality Comments OTHER SURGICAL HISTORY PROCEDURE: DENIES PREVIOUS SURGERY Medical History Medical History Date Comments Schizophrenia (CMS/HCC V24, CMS/HCC V28) DX:Schizophrenia (HCC) Urinary, incontinence, stress female 08/18/2014 DX:Urinary, incontinence, stress female Family History Medical History Relation Name Comments Schizophrenia Mother Other: denies Other Breast cancer Neg Hx Relation Name Status Comments Mother Other Social History Tobacco Use Types Packs/Day Years Used Date Smoking Tobacco: Every Day Cigarettes 1.5 37.8 Started: 09/03/1987 Smokeless Tobacco: Never Alcohol Use Standard Drinks/Week Comments No 0 (1 standard drink = 0.6 oz pur e alcohol) Comments Unknown Sex and Gender Information Value Date Recorded Sex Assigned at Not on file Legal Sex Female 4:09 PM EST Gender Identity Not on file Sexual Orientation Not on file Obstetrics History Last Filed Vital Signs Vital Sign Reading Time Taken Comments Blood Pressure 100/60 02/25/2024 1:40 PM EDT Pulse 68 02/25/2024 1:40 PM EDT Temperature - - Respiratory Rate - - Oxygen Saturation - - Inhaled Oxygen Concentration - - Weight 64 kg (141 lb) 02/25/2024 1:40 PM EDT Height 170.2 cm (5' 7 ) 02/25/2024 1:40 PM EDT Body Mass Index 22.08 02/25/2024 1:40 PM EDT Plan of Treatment Health Maintenance Due Date Last Done Comments Breast Cancer Screening 1965 Colorectal Cancer Screening: Colonoscopy 1965 DTaP,Tdap,and Td Vaccines (1 - Tdap) 1984 Hepatitis B Vaccines (1 of 3 - 19+ 3-dose series) 1984 Pneumococcal Vaccine: 50+ Years (1 of 2 - PCV) 1984 Zoster Vaccines (1 of 2) 12/20/2015 Cervical Cancer Screening: P ap Smear 07/11/2019 07/11/2016, 07/11/2016 HIV Screening 08/02/2022 Hepatitis C Screening 08/02/2022 Medicare Annual Wellness Visit 08/02/2022 Social Influencers of Health Screening 08/02/2022 Depression Screening 09/03/2024 COVID-19 Vaccine ( - 2023-2 5 season) 2025 Influenza Vaccine (#1) 2025 Cholesterol Screening (Lipid Panel) 02/24/2029 02/25/2024, 02/25/2024 RSV Immunization Adult Patients (1 - 1-dose 75+ series) 2040 HIB Vaccines Aged Out No longer eligi ble based on patient's age to complete this topic HPV Vaccines Aged Out No longer eligi ble based on patient's age to complete this topic Hepatitis A Vaccines Aged Out No long er eligible based on patient's age to complete this topic IPV Vaccines Aged Out No longer eligi ble based on patient's age to complete this topic MMR Vaccines Aged Out No longer eligi ble based on patient's age to complete this topic Meningococcal ACWY Vaccine Aged Out N o longer eligible based on patient's age to complete this topic Meningococcal B Vaccine Aged Out No l onger eligible based on patient's age to complete this topic RSV Immunization Patients Under 20 months Aged Out No longer eligible b ased on patient's age to complete this topic Varicella Vaccines Aged Out No longer eligible based on patient's age to complete this topic Procedures Procedure Name Priority Date/Time Associated Diagnosis Comments LIPID PANEL Routine 02/25/2024 HPV Routine 07/11/2016 from Last 3 Months or Most Recently Relevant to Health Maintenance Results * (ABNORMAL) Lipid panel (02/25/2024) Pathologist [facility] [place] LDL/HDL Ratio 4 0 - 4 Triglycerides 103 0 - 150 mg/dL Cholesterol 170 0 - 200 mg/dL HDL 47 >=40 mg/dL LDL Cholesterol 103(A) 0 - 100 mg/dL Blood Venous blood specimen / Unknown Historical Provider LAB BLOOD ORDERABLES Rox l Result * Cervical Cancer Screening: HPV (07/11/2016) Pathologist [facility] Cervical Cancer Screening: HPV negative, abstracted Historical Provider HEALTH MAINTENANCE Final Result from Last 3 Months or Most Recently Relevant to Health Maintenance Insurance [place] Care Teams Recreational Assistant Relationship Specialty Start Date End Date Eloy Edgar MD PCP - General 01/26/11
[2025-06-17 19:48] LABS: MANUAL DIFF FLAG NO
[2025-06-17 19:56] LABS: Hematocrit 27.9 % (37.0-47.0); Hemoglobin 9.7 g/dl (12.0-16.0); Imm Gran Abs Auto 0.05 X10*3/uL (0.00-0.03); Imm Gran Pct Auto 0.4 % (0.0-0.4); Lymphocytes Absolute Auto 3.1 X10*3/uL (1.2-4.9); Mean Corpuscular HGB Conc 34.8 g/dl (31.0-35.0); Mean Corpuscular Hemoglobin 32.2 pg (27.0-33.0); Mean Corpuscular Volume 92.7 fL (80.0-98.0); NRBC Abs Auto 0.000 X10*3/uL (0.0-0.012); NRBC Pct Auto 0.0 /100WBC (0.0-0.2); Platelet Count 251 X10*3/uL (160-400); Red Blood Count 3.01 X10*6/uL (4.20-5.50); White Blood Count 12.0 X10*3/uL (4.8-10.8)
[2025-06-17 20:04] LABS: Alanine Aminotransferase 80 U/L (0-31); Albumin Level 4.2 g/dL (3.5-5.0); Alkaline Phosphatase 73 U/L (39-117); Anion Gap 10 (12-20); Aspartate Amino Transferase 50 U/L (5-31); Blood Urea Nitrogen 23 mg/dL (9-16); Calcium 8.9 mg/dL (8.4-10.2); Carbon Dioxide 27 mmol/L (22-29); Chloride 90 mmol/L (96-108); Creatinine Clr Calc Pharmacy 107.1; Estimated Glomerular Filt Rate > 60; Potassium 4.3 mmol/L (3.3-5.1); Sodium 123 mmol/L (135-145); Total Protein 6.3 g/dL (6.5-8.0)
[2025-06-17 20:11] LABS: Troponin-I High Sensitivity < 2.7 ng/L (<3.5-17.0)
[2025-06-17 20:12] VITALS: BP 141/78; PULSE 93; RESP 16; TEMP 36.3; O2SAT 99
--- NOTE | 2025-06-18 03:17 | PC.NURSE ---
Addendum entered by Viridiana Guerrero RN 06/18/25 04:17: IV removed after fluids completed Original Note: This RN started 20g IV in left forearm. NS started wide open per NOV. Pt tolerated well
[2025-06-18 03:33] LABS: Anion Gap 13 (12-20); Blood Urea Nitrogen 18 mg/dL (9-16); Calcium 9.7 mg/dL (8.4-10.2); Carbon Dioxide 26 mmol/L (22-29); Chloride 99 mmol/L (96-108); Creatinine Clr Calc Pharmacy 107.1; Estimated Glomerular Filt Rate > 60; Potassium 4.5 mmol/L (3.3-5.1); Sodium 133 mmol/L (135-145)
[2025-06-18 04:37] LABS: Anion Gap 15 (12-20); Blood Urea Nitrogen 18 mg/dL (9-16); Calcium 8.9 mg/dL (8.4-10.2); Carbon Dioxide 19 mmol/L (22-29); Chloride 102 mmol/L (96-108); Creatinine Clr Calc Pharmacy 109.1; Estimated Glomerular Filt Rate > 60; Potassium 4.9 mmol/L (3.3-5.1); Sodium 131 mmol/L (135-145)
[2025-06-18 06:24] VITALS: BP 138/78; PULSE 79; RESP 14; TEMP 36.3; O2SAT 99
--- NOTE | 2025-06-18 08:27 | MHC.CARE ---
Pt requesting to D/C. Does not present as an imminent risk or meet IPLOC. ED provider in agreement.
[2025-06-18 08:28] VITALS: BP 138/78; PULSE 79; RESP 14; TEMP 36.3
== END 2025-06-18 08:51 | disposition home or self-care (01) ==
PROVIDERS: Emergency Provider Student in an Organized Health Care Education/Training Program
DX: E87.1 Hypo-osmolality and hyponatremia (principal); F41.9 Anxiety disorder, unspecified; R11.0 Nausea; R07.89 Other chest pain; Z51.81 Encounter for therapeutic drug level monitoring; Z79.899 Other long term (current) drug therapy
CPT/HCPCS: 36415; 71046; 80048; 80053; 80307; 81001; 84484; 85025; 93005; 96360; 99285; S9485

== ENCOUNTER → 2025-06-17 18:14 | Outpatient (BNV) | payer MEDICARE, MEDICAID, SELFPAY | PROVIDERS: Emergency Provider Student in an Organized Health Care Education/Training Program; Visit Provider Radiology Diagnostic Radiology | DX: R07.9 Chest pain, unspecified (principal) | CPT/HCPCS: 71046 ==

== ENCOUNTER → 2025-06-17 18:14 | Outpatient (BNV) | payer MEDICARE, MEDICAID, SELFPAY | PROVIDERS: Emergency Provider Student in an Organized Health Care Education/Training Program; Visit Provider Internal Medicine Cardiovascular Disease | DX: R07.89 Other chest pain (principal) | CPT/HCPCS: 93010 ==

== ENCOUNTER 2025-08-23 20:16 | Inpatient (IN) | payer MEDICARE, MEDICAID, SELFPAY ==
--- NOTE | ~2025-08-23 | XR_ITS ---
CLINICAL HISTORY: LLL Rhonchi; AMS 2 view chest x-ray Comparison: CR - XR CHEST 2V - 06/17/25 20:03 EDT Findings: The lungs are clear. Normal size heart. No acute fracture. IMPRESSION: 1. No acute findings. This document has been electronically signed by: Ck Jones MD on 08/23/2025 22:16:30
--- NOTE | ~2025-08-23 | XR_ITS ---
CLINICAL HISTORY: Pain; Remote hx of fall; ? subacute compression fx 3 views lumbar spine Comparison: None provided Findings: Normal alignment. Mild osteopenia. L5-S1: Moderate narrowing of the intervening disc space. IMPRESSION: 1. Moderate L5-S1 disc space narrowing. 2. Mild osteopenia. 3. No acute osseous injury. This document has been electronically signed by: Ck Jones MD on 08/23/2025 23:36:05
[2025-08-23 20:23] VITALS: BP 144/100; BP 147/92; PULSE 88; PULSE 89; RESP 16; TEMP 36.3; O2SAT 100; O2SAT 99
--- NOTE | 2025-08-23 20:35 | ECG_ITS ---
Test Reason : AMS Blood Pressure : */* mmHG Vent. Rate : 80 BPM Atrial Rate : 80 BPM P-R Int : 174 ms QRS Dur : 88 ms QT Int : 392 ms P-R-T Axes : 70 78 13 degrees QTcB Int : 452 ms Normal sinus rhythm Normal ECG When compared with ECG of 17-Jun-2025 19:17, No significant change was found Referred By: Generic ED Physician Electronically Signed By: TYRELL HURST MD
[2025-08-23 20:49] LABS: MANUAL DIFF FLAG NO
[2025-08-23 20:50] LABS: Hematocrit 30.0 % (37.0-47.0); Hemoglobin 10.9 g/dl (12.0-16.0); Imm Gran Abs Auto 0.03 X10*3/uL (0.00-0.03); Imm Gran Pct Auto 0.3 % (0.0-0.4); Lymphocytes Absolute Auto 4.4 X10*3/uL (1.2-4.9); Mean Corpuscular HGB Conc 36.3 g/dl (31.0-35.0); Mean Corpuscular Hemoglobin 31.8 pg (27.0-33.0); Mean Corpuscular Volume 87.5 fL (80.0-98.0); NRBC Abs Auto 0.000 X10*3/uL (0.0-0.012); NRBC Pct Auto 0.0 /100WBC (0.0-0.2); Platelet Count 232 X10*3/uL (160-400); Red Blood Count 3.43 X10*6/uL (4.20-5.50); White Blood Count 10.2 X10*3/uL (4.8-10.8)
--- NOTE | 2025-08-23 21:03 | ED.GENADULT ---
HPI - General Adult General Chief complaint: General Medical Stated complaint: Hallucinations, sect 12 Time Seen by Provider: 08/23/25 21:00 Source: patient Mode of arrival: ambulatory Limitations: no limitations History of Present Illness ED Provider: Grabiel FOSTER HPI narrative: The patient is a 59-year-old female with a history of schizophrenia who presents to the Emergency Department by ambulance, but also accompanied by son and home nurse for evaluation of acute mental status changes over the past several days. Family reports the patient is ?not making sense,? has not been eating for several days, is urinating frequently, and appears more confused compared to baseline. EMS reports concern for possible urinary tract infection. The patient states she has had chronic insomnia for weeks to months due to her being ill, symptoms worsened recently after the of her four days ago. She attributes her confusion to lack of sleep. She endorses frequent nightmares and feeling very warm/flushed. She reports a frequent cough and excessive drooling, which she associates with her clozaril. She denies abdominal pain, vomiting, diarrhea, chest pain, or objective fever. She reports no changes to her prescribed medications and states she is taking them as directed. Approximately one hour prior to EMS arrival, family administered 20?mg melatonin, 1?mg Ativan, and her scheduled dose of Clozaril. Family denies observed fever or vomiting. They express concern for the patient?s safety due to fluctuating mental status. The patient has expressed passive thoughts of not wanting to live since her ?s but has made no direct self-harm statements in the past. No threats toward others have been reported. Related Data Home Medications ?Medication ?Instructions ?Recorded ?Confirmed clozapine 100 mg tablet 200 mg PO BID@0900,1600 06/17/25 08/24/25 melatonin 4 mg PO BEDTIME 06/17/25 08/24/25 Previous Rx's ?Medication ?Instructions ?Recorded clozapine 100 mg tablet 100 mg PO BEDTIME 30 days #30 tabs 01/30/24 lorazepam 1 mg tablet 1 mg PO TID 30 days #90 tabs 01/30/24 sertraline 25 mg tablet 25 mg PO DAILY 30 days #30 tabs 01/30/24 Allergies Allergy/AdvReac Type Severity Reaction Status Date / Time flu shot AdvReac Dizziness Uncoded 08/23/25 20:31 Review of Systems Review of Systems: Yes all other systems are reviewed and are negative PMFSH Social History Social History Household Members: Spouse Housing: House Do you presently have visiting nurse or other home services: No Patient Tobacco Use Status: Former Tobacco user Tobacco use type: Cigarette Advance Directives: Yes Advance Directives Information Provided: Yes Advance Directives on File: No service: No Sexual orientation: Straight/Heterosexual Physical Exam ED Vital Signs: Vital Signs - 24 hr 08/23/25 20:23 08/23/25 22:13 08/23/25 22:39 Temperature 97.3 F 97.3 F Pulse Rate 88 82 79 Respiratory Rate 16 16 Blood Pressure 147/92 H 156/88 H 130/70 Pulse Oximetry 99 99 Oxygen Delivery Method Room Air Room Air 08/24/25 02:54 08/24/25 06:50 Temperature 96.9 F 98.1 F Pulse Rate 83 85 Respiratory Rate 16 14 Blood Pressure 120/69 130/69 Pulse Oximetry 96 97 Oxygen Delivery Method Room Air Room Air BMI result Body Mass Index 20.0 CONSTITUTIONAL: The patient appears non-toxic, well nourished and in no acute distress. Vital signs as documented. HEAD: Atraumatic, normocephalic. EYES: EOMs grossly intact, pupils equal, conjunctiva clear, no exudate. ENT: Nares patent, no discharge. Airway patent, no audible stridor, visible mucosa is pink and moist without noted lesions. NECK: Trachea is midline, no obvious masses or gross abnormalities. CHEST: Symmetric movement, normal appearance. LUNGS: LS present throughout, mild rhonchi noted in the left lower lobe, otherwise CTAB. Non-labored work of breathing. CARDIAC: Regular Rhythm, S1/S2 appreciated, no murmurs, rubs or gallops. ABDOMEN: Abdomen soft and non-tender x4 quadrants, mild suprapubic tenderness reported without associated grimace, no rebound, no palpable masses or organomegaly. : Deferred. EXTREMITIES: Normal tone, moves all extremities spontaneously without reported pain. No obvious acute injury or deformity noted. NEURO: Alert and oriented x3, CN II-XII appear grossly intact. Cerebellar Functioning grossly intact. No obvious sensory or motor deficits. Speech clear and appropriate. PSYCH: flattened affect, appropriate eye contact, mildly impulsive and pressured speech with flight of ideas which are largely redirectable. No reported suicidality or homicidality. SKIN: Warm, dry, color appropriate, normal turgor. No rashes noted. Course Course Course Narrative: Time: 06:20 Date: 08/24/25 Provider: Ryann Cabrera DO Patient in physician observation for psychiatric evaluation.? No acute events reported overnight. No current complaints. VS stable.? Patient is pending CARE team. Will continue to monitor. Na corrected. 1:25 PM 08/24/2025 (BELLA MATTHEWS): physician observation ended, admitted inpatient. Medications Administered Discontinued Medications Generic Name Dose Route Start Last Admin Trade Name Freq PRN Reason Stop Dose Admin Benzocaine 1 lozenge 08/24/25 02:47 08/24/25 02:51 Throat Lozenge, Medicated Lozenge MUCOUS MEM 08/24/25 02:48 1 lozenge ONCE ONE Administration Clozapine 200 mg 08/24/25 07:00 08/24/25 08:06 Clozapine 100 Mg Tablet PO 08/24/25 07:01 200 mg ONCE ONE Administration Sodium Chloride 1,000 mls @ 999 mls/hr 08/23/25 21:15 08/23/25 22:39 Ns IV 08/23/25 22:15 Infused .Q1H1M PINO Infusion Lorazepam 1 mg 08/24/25 06:03 08/24/25 06:30 Lorazepam 1 Mg Tablet PO 08/24/25 06:04 1 mg ONCE ONE Administration Nicotine 21 mg 08/24/25 00:38 08/24/25 01:06 Nicotine 21 Mg Patch.Td24 TRANSDERMA 08/24/25 00:39 21 mg ONCE ONE Administration Sertraline HCl 25 mg 08/24/25 06:03 08/24/25 06:30 Sertraline Hcl 25 Mg Tablet PO 08/24/25 06:04 25 mg ONCE ONE Administration Medical Decision Making Medical Decision Making MDM Narrative: 9:21 PM 08/23/2025 (Will FOSTER): The patient is a 59-year-old female with a history of schizophrenia who presents to the Emergency Department by ambulance, but also accompanied by son and home nurse for evaluation of acute mental status changes over the past several days. Family reports the patient is ?not making sense,? has not been eating for several days, is urinating frequently, and appears more confused compared to baseline. EMS reports concern for possible urinary tract infection. The patient states she has had chronic insomnia for weeks to months due to her being ill, symptoms worsened recently after the of her four days ago. She attributes her confusion to lack of sleep. She endorses frequent nightmares and feeling very warm/flushed. She reports a frequent cough and excessive drooling, which she associates with her clozaril. She denies abdominal pain, vomiting, diarrhea, chest pain, or objective fever. She reports no changes to her prescribed medications and states she is taking them as directed. Approximately one hour prior to EMS arrival, family administered 20?mg melatonin, 1?mg Ativan, and her scheduled dose of Clozaril. Family denies observed fever or vomiting. They express concern for the patient?s safety due to fluctuating mental status. The patient has expressed passive thoughts of not wanting to live since her ?s but has made no direct self-harm statements in the past. No threats toward others have been reported. On exam the patient appears chronically ill, borderline cachectic, but in no acute distress. Lung sounds demonstrate rhonchi in the left lower lobe. The patient reports mild suprapubic abdominal tenderness, exam is otherwise unremarkable. The patient's laboratory evaluation shows no leukocytosis, significant anemia, or SOLOMON. The patient does have moderate hyponatremia with a sodium 129, which is close to the patient's baseline of 131, no LFT abnormalities. The patient's total protein and albumin are normal, no evidence of clinical malnutrition. The patient's urinalysis has resulted and shows no evidence of infection. Ethanol is negative. The patient's EKG is nonischemic. Patient will be evaluated further with a chest x-ray due to adventitious lung sounds, and viral swabs. The patient may be suffering from acute grief reaction compounded by her underlying schizophrenia. Patient's hyponatremia will be treated with IV fluid hydration, pending no other somatic findings/diagnosis the patient will be referred to crisis team for evaluation. 10:42 PM 08/23/2025 (Will FOSTER): The patient is chest x-ray and viral swabs are negative. Given the patient's lack of leukocytosis, pneumonia, urinary tract infection, viral illness, or significant electrolyte abnormality, the patient is medically cleared for crisis evaluation. Of note the patient's family reports she has been having intermittent complaints of low back pain over the past few weeks. The patient's family reports she suffered a fall approximately 1 year ago, for which they never had her evaluated. There has been no recent trauma. The patient will be sent for a lumbar x-ray to evaluate for subacute compression fracture. Patient will also be ordered for crisis team consultation as a compression fracture would not be contributing to her mental status changes. Admission/Observation Consideration of admission/observation: Escalation of care including admission/observation considered Lab Data MDM Lab Attestation statement: I reviewed the patient's lab results. 08/23/25 20:45 08/24/25 06:21 Labs: Lab Results 08/23/25 08/23/25 08/23/25 Range/Units 20:45 21:00 21:38 WBC 10.2 (4.8-10.8) X10*3/uL RBC 3.43 L (4.20-5.50) X10*6/uL Hgb 10.9 L (12.0-16.0) g/dl Hct 30.0 L (37.0-47.0) % MCV 87.5 (80.0-98.0) fL MCH 31.8 (27.0-33.0) pg MCHC 36.3 H (31.0-35.0) g/dl RDW 12.0 (11.0-16.0) % Plt Count 232 (160-400) X10*3/uL MPV 8.4 L (9.4-12.3) fL Immature Gran % (Auto) 0.3 (0.0-0.4) % Neut % (Auto) 47.3 (45-73) % Lymph % (Auto) 42.6 H (20-40) % Preston % (Auto) 9.4 (2-11) % Eos % (Auto) 0.0 (0-4) % Baso % (Auto) 0.4 (0-2) % Lymph # (Auto) 4.4 (1.2-4.9) X10*3/uL Preston # (Auto) 1.0 (0.1-1.2) X10*3/uL Eos # (Auto) 0.0 (0.0-0.4) X10*3/uL Baso # (Auto) 0.0 (0.0-0.2) X10*3/uL Abs Immat Gran (auto) 0.03 (0.00-0.03) X10*3/uL Absolute Neuts (auto) 4.9 (2.0-8.3) x10*3/uL Absolute Nucleated RBC 0.000 (0.0-0.012) X10*3/uL Nucleated RBC % (auto) 0.0 (0.0-0.2) /100WBC Sodium 129 L (135-145) mmol/L Potassium 3.6 D (3.3-5.1) mmol/L Chloride 97 (96-108) mmol/L Carbon Dioxide 22 (22-29) mmol/L Anion Gap 14 (12-20) BUN 13 (9-16) mg/dL Creatinine 0.54 (0.5-1.4) mg/dL Estim Creat Clear Calc 102.7 Estimated GFR > 60 Random Glucose 110 (60-115) mg/dL Calcium 9.5 D (8.4-10.2) mg/dL Total Bilirubin 0.4 (0.0-1.0) mg/dL AST 28 (5-31) U/L ALT 40 H (0-31) U/L Alkaline Phosphatase 75 (39-117) U/L Total Protein 6.7 (6.5-8.0) g/dL Albumin 4.5 (3.5-5.0) g/dL Urine Color Yellow Urine Appearance Clear Urine pH 8.5 (5.0-9.0) Ur Specific [place] <= 1.005 (1.005-1.025) Urine Protein Negative (Neg-Trace) mg/dL Urine Glucose (UA) Negative (Negative) mg/dL Urine Ketones Negative (Negative) mg/dL Urine Blood Negative (Negative) Urine Nitrite Negative (Negative) Ur Leukocyte Esterase Negative (Negative) Urine Opiates Screen Not Detected (Not Detect) Ur Buprenorphine Scrn Not Detected (Not Detect) ng/mL Ur Oxycodone Screen Not Detected (Not Detect) ng/mL Urine Methadone Screen Not Detected (Not Detect) ng/mL Urine Fentanyl Screen Not Detected (Not Detect) Ur Barbiturates Screen Not Detected (Not Detect) Ur Phencyclidine Scrn Not Detected (Not Detect) Ur Amphetamines Screen Not Detected (Not Detect) U Benzodiazepines Scrn Not Detected (Not Detect) Urine Cocaine Screen Not Detected (Not Detect) U Marijuana (THC) Screen Not Detected (Not Detect) Ethyl Alcohol < 10 mg/dL Influenza Type A (PCR) NEGATIVE (Negative) Influenza Type B (PCR) NEGATIVE (Negative) RSV RNA Qual (PCR) NEGATIVE (Negative) SARS-CoV-2 RNA (RT-PCR) NEGATIVE (Negative) 08/24/25 Range/Units 06:21 WBC (4.8-10.8) X10*3/uL RBC (4.20-5.50) X10*6/uL Hgb (12.0-16.0) g/dl Hct (37.0-47.0) % MCV (80.0-98.0) fL MCH (27.0-33.0) pg MCHC (31.0-35.0) g/dl RDW (11.0-16.0) % Plt Count (160-400) X10*3/uL MPV (9.4-12.3) fL Immature Gran % (Auto) (0.0-0.4) % Neut % (Auto) (45-73) % Lymph % (Auto) (20-40) % Preston % (Auto) (2-11) % Eos % (Auto) (0-4) % Baso % (Auto) (0-2) % Lymph # (Auto) (1.2-4.9) X10*3/uL Preston # (Auto) (0.1-1.2) X10*3/uL Eos # (Auto) (0.0-0.4) X10*3/uL Baso # (Auto) (0.0-0.2) X10*3/uL Abs Immat Gran (auto) (0.00-0.03) X10*3/uL Absolute Neuts (auto) (2.0-8.3) x10*3/uL Absolute Nucleated RBC (0.0-0.012) X10*3/uL Nucleated RBC % (auto) (0.0-0.2) /100WBC Sodium 137 (135-145) mmol/L Potassium 4.3 (3.3-5.1) mmol/L Chloride 106 (96-108) mmol/L Carbon Dioxide 24 (22-29) mmol/L Anion Gap 11 L (12-20) BUN 10 (9-16) mg/dL Creatinine 0.58 (0.5-1.4) mg/dL Estim Creat Clear Calc 95.6 Estimated GFR > 60 Random Glucose 112 (60-115) mg/dL Calcium 9.3 (8.4-10.2) mg/dL Total Bilirubin 0.4 (0.0-1.0) mg/dL AST 24 (5-31) U/L ALT 38 H (0-31) U/L Alkaline Phosphatase 76 (39-117) U/L Total Protein 6.6 (6.5-8.0) g/dL Albumin 4.5 (3.5-5.0) g/dL Urine Color Urine Appearance Urine pH (5.0-9.0) Ur Specific [place] (1.005-1.025) Urine Protein (Neg-Trace) mg/dL Urine Glucose (UA) (Negative) mg/dL Urine Ketones (Negative) mg/dL Urine Blood (Negative) Urine Nitrite (Negative) Ur Leukocyte Esterase (Negative) Urine Opiates Screen (Not Detect) Ur Buprenorphine Scrn (Not Detect) ng/mL Ur Oxycodone Screen (Not Detect) ng/mL Urine Methadone Screen (Not Detect) ng/mL Urine Fentanyl Screen (Not Detect) Ur Barbiturates Screen (Not Detect) Ur Phencyclidine Scrn (Not Detect) Ur Amphetamines Screen (Not Detect) U Benzodiazepines Scrn (Not Detect) Urine Cocaine Screen (Not Detect) U Marijuana (THC) Screen (Not Detect) Ethyl Alcohol mg/dL Influenza Type A (PCR) (Negative) Influenza Type B (PCR) (Negative) RSV RNA Qual (PCR) (Negative) SARS-CoV-2 RNA (RT-PCR) (Negative) Independent Interpretation I performed an independent interpretation of an: EKG (EKG demonstrates sinus rhythm with a rate of 80, no evidence of acute ischemia, no ST elevation, no ectopy. QTC 452. Compared to previous on 06/17/2025 there are no significant morphology changes. ) Radiology Impression Discussion of test interpretation with radiology: I have reviewed the radiologist's reading. Radiologist Impression: 2 view chest x-ray Comparison: CR - XR CHEST 2V - 06/17/25 20:03 EDT Findings: The lungs are clear. Normal size heart. No acute fracture. IMPRESSION: 1. No acute findings. This document has been electronically signed by: Ck Jones MD on 08/23/2025 22:16:30 Discharge Plan Discharge Clinical Impression: Chronic schizophrenia OCD (obsessive compulsive disorder) Qualifiers: Obsessive-compulsive disorder type: unspecified Qualified Code(s): F42.9 - Obsessive-compulsive disorder, unspecified Patient Disposition: Admitted As Inpatient Print Language: Lithuanian
[2025-08-23 21:07] LABS: Alanine Aminotransferase 40 U/L (0-31); Albumin Level 4.5 g/dL (3.5-5.0); Alkaline Phosphatase 75 U/L (39-117); Anion Gap 14 (12-20); Aspartate Amino Transferase 28 U/L (5-31); Blood Urea Nitrogen 13 mg/dL (9-16); Calcium 9.5 mg/dL (8.4-10.2); Carbon Dioxide 22 mmol/L (22-29); Chloride 97 mmol/L (96-108); Creatinine Clr Calc Pharmacy 102.7; Estimated Glomerular Filt Rate > 60; Potassium 3.6 mmol/L (3.3-5.1); Sodium 129 mmol/L (135-145); Total Protein 6.7 g/dL (6.5-8.0)
[2025-08-23 21:17] LABS: Appearance Urine Clear; Glucose Urine UA Negative (Negative); PH 8.5 (5.0-9.0); Specific Gravity - Urine <= 1.005 (1.005-1.025)
[2025-08-23 21:27] LABS: Cannabinoid Screen Urine Not Detected (Not Detect)
--- OUTSIDE RECORDS SUMMARY | 2025-08-23 21:49 | XMS_ITS | Clinical Summary ---
Author Organization [address] Address [address] [place] [phone] Phone Care Team Providers Care Section Hand Name Role Phone Eloy Edgar MD Primary Care Provider [phone] Allergies No known active allergies Medications cloZAPine [...] Problems Problem Noted Date Diagnosed Date Schizophrenia 07/21/2024 Urinary, incontinence, stress female 08/18/2014 Tobacco use disorder 05/27/2014 Surgical History Surgery Date Site/Laterality Comments OTHER SURGICAL HISTORY PROCEDURE: DENIES PREVIOUS SURGERY Medical History Medical History Date Comments Schizophrenia ([facility]/HCC V24, CMS/HCC V28) DX:Schizophrenia ([facility]) Urinary, incontinence, stress female 08/18/2014 DX:Urinary, incontinence, stress female Family History Medical History Relation Name Comments Schizophrenia Mother Other: denies Other Breast cancer Neg Hx Relation Name Status Comments Mother Other Social History Tobacco Use Types Packs/Day Years Used Date Smoking Tobacco: Every Day Cigarettes 1.5 38 Started: 09/03/1987 Smokeless Tobacco: Never Alcohol Use Standard Drinks/Week Comments No 0 (1 standard drink = 0.6 oz pur e alcohol) Comments Unknown Sex and Gender Information Value Date Recorded Sex Assigned at Not on file Legal Sex Female 4:09 PM EST Gender Identity Not on file Sexual Orientation Not on file Last Filed Vital Signs Vital Sign Reading [...] Screening 1965 Colorectal Cancer Screening: Colonoscopy 1965 Drug Screen 1965 Non-Opioid Controlled Substance Agreement 1965 DTaP,Tdap,and Td Vaccines (1 - Tdap) 1984 Hepatitis B Vaccines (1 of 3 - 19+ 3-dose series) 1984 Pneumococcal Vaccine: 50+ Years (1 of 2 - PCV) 1984 Zoster Vaccines (1 of 2) 12/20/2015 Cervical Cancer Screening: P ap Smear 07/11/2019 07/11/2016 HIV Screening 08/02/2022 Hepatitis C Screening 08/02/2022 Medicare Annual Wellness Visit 08/02/2022 Social Influencers of Health Screening 08/02/2022 Depression Screening 09/03/2024 COVID-19 Vaccine ( - 2024-2 6 season) 2025 Influenza Vaccine (#1) 2025 Cholesterol [...] Associated Diagnosis Comments LIPID PANEL Routine 02/25/2024 PAP SMEAR Routine 07/11/2016 from Last 3 Months or Most Recently Relevant to Health Maintenance Results * (ABNORMAL) Lipid panel (02/25/2024) LDL/HDL Ratio 4 0 - 4 Triglycerides 103 0 - 150 mg/dL Cholesterol 170 0 - 200 mg/dL HDL 47 >=40 mg/dL LDL Cholesterol 103(A) 0 - 100 mg/dL Blood Venous blood specimen / Unknown Historical Provider MD LAB BLOOD ORDERABLES Rox l Result * Pap Smear (07/11/2016) Pap smear negative, abstracted Historical Provider HEALTH MAINTENANCE Final Result from Last 3 Months or Most Recently Relevant to Health Maintenance Insurance [place] Care Teams Section Hand Relationship Specialty Start Date End Date Eloy Edgar MD PCP - General 01/26/11
[2025-08-23 22:13] VITALS: BP 156/88; PULSE 82; RESP 16; TEMP 36.3; O2SAT 99
[2025-08-23 22:39] VITALS: BP 130/70; PULSE 79
[2025-08-23 22:40] LABS: Resp Syncy Virus RNA Qual PCR NEGATIVE (Negative); SARS COV2 PCR INHOUSE NEGATIVE (Negative)
[2025-08-24] MEDS: Nicotine 21 MG PATCH.TD24 TRANSDERMA (01:06)
[2025-08-24] MEDS: Throat Lozenge, Medicated LOZENGE 1 LOZENGE MUCOUS MEM (02:51)
[2025-08-24 02:54] VITALS: BP 120/69; PULSE 83; RESP 16; TEMP 36.1; O2SAT 96
[2025-08-24 06:39] LABS: Alanine Aminotransferase 38 U/L (0-31); Albumin Level 4.5 g/dL (3.5-5.0); Alkaline Phosphatase 76 U/L (39-117); Anion Gap 11 (12-20); Aspartate Amino Transferase 24 U/L (5-31); Blood Urea Nitrogen 10 mg/dL (9-16); Calcium 9.3 mg/dL (8.4-10.2); Carbon Dioxide 24 mmol/L (22-29); Chloride 106 mmol/L (96-108); Creatinine Clr Calc Pharmacy 95.6; Estimated Glomerular Filt Rate > 60; Potassium 4.3 mmol/L (3.3-5.1); Sodium 137 mmol/L (135-145); Total Protein 6.6 g/dL (6.5-8.0)
[2025-08-24 06:50] VITALS: BP 130/69; PULSE 85; RESP 14; TEMP 36.7; O2SAT 97
--- NOTE | 2025-08-24 09:45 | MHC.CARE ---
Pt will be an Adult inpatient bedsearch
--- NOTE | 2025-08-24 13:29 | PHA.MEDREC ---
Pharmacy Consult ? Medication Reconciliation Pharmacy has reviewed the medication reconciliation completed by nursing. Last dose of clozapine was yesterday, Pt takes clozapine 200mg BID@ 0600,1300, and 100mg at bedtime@1800..
[2025-08-24 14:45] VITALS: BP 160/75; PULSE 108; RESP 18; TEMP 36.4; O2SAT 100
--- NOTE | 2025-08-24 15:23 | PC.NURSE ---
attempted to call family to update them on patient move to floor, no answer
[2025-08-24 15:40] VITALS: BMI 17.7
--- NOTE | 2025-08-24 18:24 | PC.ADMIT ---
Addendum entered by Maryann Becerra RN 08/24/25 18:26: Family reports concerns patient is not at her baseline and is not eating, not sleeping and is not acting right Her was ill for months and 4 days ago. Original Note: Yesi is a 59 year old woman who was admitted to from the [facility] at 1445 with diagnosis of schizophrenia, recurrent MDD, and OCD. Her 4 days ago and her family reported that she was having hallucinations. She reports she has been taking her medication as prescribed and is downcast. She takes Clozaril TID. Upon arrival at she was subdued, calm, cooperative, with an avoidant gaze. She is underweight and appears disheveled and unkept. Skin and safety check unremarkable. She participated in the admission process and declined a CV and is a 12B. She was given the opportunity to have [facility] contacted on her behalf and she agreed. [facility] was [facility] and information about the patient conveyed to staff there. She is on 15 min safety checks and asked for a osteopathic resident visit while here. She denies SI/HI/AVH and does not appear to be internally responding. She denies use of alcohol or other substances, urine tox negative. She also reports she quit smoking cigarettes 7 months ago and uses the Nicotine patch for cravings. She declined to complete the safety tool but did sign MARIA C for psychiatrist and pharmacy. Yesi lives at [facility] per report but pt tells TW that she was living in an apartment with her and they rented it from her mother in law.? She was oriented to the unit briefly as she opted to nap. She declined dinner stating she only wanted to drink water at this time. She is allergic to the Flu vaccine and was placed on 15 min safety checks.?
[2025-08-24 20:00] VITALS: BP 122/84; PULSE 92; TEMP 36.6; O2SAT 98
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
[2025-08-25 08:00] VITALS: BP 161/88; PULSE 85; RESP 18; TEMP 36.2; O2SAT 97
[2025-08-25] MEDS: Nicotine 14 MG PATCH.TD24 TRANSDERMA (08:41)
--- NOTE | 2025-08-25 09:13 | MHC.CLN ---
CONSULT HT 67 WT 51.3KG IBW 135#=/-10% BMI 17.7 PT IS 84% IBW RANGE INDICATES MILDLY UNDER WT FOR HT. PREVIOUS WT HX 62.7KG (01/31/24) PT WITH 18% SIGNIFICANT WT LOSS X 6 MONTHS PT REPORTS POOR PO INTAKE APPEARS UNDER WT, UNKEPT, AND DISHEVELED ENN: [id number], 51G PROTEIN REGULAR DIET RECOMMEND ADDING ENSURE BID TO INCREASE KCALS SUPPLEMENT TO PROVIDE 700KALS, 40G PROTIEN MONITOR PO INTAKE WEEKLY WEIGHT
[2025-08-25 09:53] LABS: Cholesterol 173 mg/dL (<200); HDL Cholesterol 68 mg/dL (>40); Magnesium 2.0 mg/dL (1.6-2.6); Triglycerides 53 mg/dL (<150)
[2025-08-25 10:10] LABS: Free T4 (Free Thyroxine) 0.93 ng/dL (0.71-1.85); Thyroid Stimulating Hormone 0.57 uIU/mL (0.32-4.0)
[2025-08-25 10:18] LABS: Folate 12.2 ng/mL (> or = 4.0); Vitamin B12 1024 pg/mL (200-900)
--- NOTE | 2025-08-25 10:25 | HO.PM.IMCN ---
History of Present Illness Data of Consult Service Date: 08/25/25 Primary Care Provider: None Physician HPI Reason for consult: Medical consult 59-year-old female with past medical history of schizophrenia presented to the emergency room with acute mental status changes. Patient also with chronic insomnia which worsened while her was ill, all symptoms worsen recently after the of her 4 days prior to presentation. Her initial blood work revealed no leukocytosis, mild anemia, no kidney injury. Patient has chronic hyponatremia and her sodium was 129. No liver abnormalities. Urine with no evidence of infection, alcohol was negative, EKG was nonischemic. Chest x-ray negative for pneumonia viral swabs negative. U tox negative. She received IV hydration for her hyponatremia. No acute findings in her chest x-ray. She was medically cleared and now admitted to inpatient psych for further care and treatment. On exam she has no medical concerns. Review of Systems Review of Systems: Denies any shortness of breath, chest pain, palpitations, dizziness, lightheadedness, headaches, dysuria, abdominal pain or discomfort, nausea, vomiting or diarrhea. [facility] Social History Household Members: Other Household Members Other:: [facility] Housing: Other Housing Other:: [facility] Do you presently have visiting nurse or other home services: No Patient Tobacco Use Status: Former Tobacco user Tobacco use type: Cigarette Smoked in Last 30 Days: No Patient Interested in Nicotine Replacement: No Patient Given Instructions on How to Stop Smoking: No Second Hand Smoke Exposure: No Currently Displaying Signs/Symptoms of Drug Intoxication Withdrawal: No Have you been hit, kicked, punched, or otherwise hurt by someone within the past year? If so, by whom?: No Do you feel safe in your current relationship?: Yes Is there a partner from a previous relationship who is making you feel unsafe now?: No Are you made to feel afraid or neglected: No Spiritual Healthcare Practices: Attends baptism Ca[employer]ism Healthcare Practices: Orthodox Cultural Healthcare Practices: none Advance Directives: Yes Advance Directives Information Provided: Yes Advance Directives on File: No Do you have thoughts of harming others: None Do you have a plan to hurt others: No Plan Recently lost weight without trying: Unsure How much weight loss: Unsure Eating poorly because of decreased appetite: Yes Nutrition screen score: 5 Nutrition Risks: No Nutritional Risk and Dental problems Patient : No : No Poor oral hygiene: Yes service: No Sexual orientation: Straight/Heterosexual Meds Allergies Allergy/AdvReac Type Severity Reaction Status Date / Time flu shot AdvReac Dizziness Uncoded 08/23/25 20:31 Active Medications: Current Medications Acetaminophen (Acetaminophen 325 Mg Tablet) 650 mg PO Q6H PRN PRN Reason: Headache/Pain, Scale 1-10 Al Hydroxide/Mg Hydroxide (Magnesium Hydrox/Alum Hydrox 30 Ml Oral.Susp) 30 ml PO Q6H PRN PRN Reason: Heartburn/Nausea Clozapine (Clozapine 100 Mg Tablet) 200 mg PO BID@0600,1300 [facility] Last Admin: 08/25/25 07:47 Dose: 200 mg Clozapine (Clozapine 100 Mg Tablet) 100 mg PO BEDTIME@1800 [facility] Last Admin: 08/24/25 18:37 Dose: 100 mg Hydroxyzine HCl (Hydroxyzine Hcl 25 Mg Tablet) 25 mg PO Q6H PRN PRN Reason: mild anxiety Lorazepam (Lorazepam 1 Mg Tablet) 1 mg PO TID@0800,1300,1800 [facility] Last Admin: 08/25/25 07:50 Dose: 1 mg Magnesium Hydroxide (Milk Of Magnesia 30 Ml Oral.Susp) 30 ml PO DAILY PRN PRN Reason: Constipation Melatonin (Melatonin 3 Mg Tablet) 3 mg PO DAILY@1800 [facility] Last Admin: 08/24/25 18:36 Dose: 3 mg Nicotine (Nicotine 14 Mg Patch.Td24) 14 mg TRANSDERMA DAILY [facility] Last Admin: 08/25/25 08:41 Dose: 14 mg Nicotine Polacrilex (Nicotine Polacrilex 2 Mg Gum) 2 mg BUCCAL Q2H PRN PRN Reason: Nicotine Cravings Sertraline HCl (Sertraline Hcl 25 Mg Tablet) 25 mg PO DAILY [facility] Last Admin: 08/25/25 08:41 Dose: 25 mg Trazodone HCl (Trazodone Hcl 50 Mg Tablet) 50 mg PO BEDTIME MRX1 PRN PRN Reason: Insomnia Home Medications ?Medication ?Instructions ?Recorded ?Confirmed ?Last Taken ?Type clozapine 100 mg tablet 200 mg PO BID@0900,1600 06/17/25 08/24/25 1 Day Ago History ~06/16/25 melatonin 4 mg PO BEDTIME 06/17/25 08/24/25 1 Day Ago History ~06/16/25 Physical Exam Vital Signs and Narrative: Vital Signs: Last Vital Signs Temp 97.1 F 08/25/25 08:00 Pulse 85 08/25/25 08:00 Resp 18 08/25/25 08:00 BP 161/88 H 08/25/25 08:00 Pulse Ox 97 08/25/25 08:00 O2 Del Method Room Air 08/25/25 08:00 BMI result Body Mass Index 17.7 Alert and oriented X3, calm and cooperative. Thin appears older than stated age Neuro: CN II-X11 intact, no focal neurological deficits ENT: Hearing intact, MMM, several broken and carious teeth Cardiac: S1 S2 RRR, No ectopy Pulmonary: lungs clear to auscultation, No increased WOB. Abdominal: BS active in all 4 quadrants, no guarding or tenderness MSK: Strength 5/5 upper and lower extremities : Deferred Extremities: No edema in lower extremities Psych: Quiet and cooperative. Sleeping, easily arousable. Skin: Warm and dry, Intact Results Labs 08/23/25 20:45 08/24/25 06:21 Labs: Laboratory Results - last 24 hr 08/25/25 09:17 Estimat Average Glucose 120 Hemoglobin A1c % 5.8 Magnesium 2.0 Triglycerides 53 Cholesterol 173 LDL Cholesterol, Calc 95 HDL Cholesterol 68 Vitamin B12 1024 H Folate 12.2 TSH 0.57 Free T4 0.93 Assessment and Plan (1) Grief reaction: Status: Acute Plan 59-year-old female with past medical history of schizophrenia and OCD admitted to the emergency department with behavioral and mental status changes, now admitted for inpatient psych stabilization. Prior to admission, patient's . Schizophrenia/OCD/Grief Treatment per psychiatric team Thank you for allowing me to participate in the care of this patient. Will follow with you, please notify medical provider with any changes in condition or concerns.
--- NOTE | 2025-08-25 11:58 | P.PNPSI_ITS ---
Subjective Subjective Date of Service: 08/25/25 Reason For Visit: schizophrenia, ocd, recurrent major depression Subjective Notes: Section 12B Interim History: Chart reviewed. Case discussed w/ team Per team report- pt thinks if she gets to [facility] tomorrow night, she will see baby Segun and her . T/W attempted to interview her in her room, where she was lying down in bed in the dark. She was easily rousable but reported I really can't talk. I'm sleeping . She denied any physical/psychiatric concerns and declined to speak further. Medication Compliance: Yes Mental Status Exam Mental Status Exam Narrative: Appearance: lying in bed in hospital attire Speech: Fluent and wnl in regard to volume, tone, prosody during brief interview Motor activity: Calm Mood: did not state mood Affect: tired Thought process: unable to fully assess Thought content: unable to fully assess. Perception: does not appear to respond to internal stimuli Unable to assess orientation, insight/judgment Diagnostics Vital Signs (24Hr): Vital Signs - 24 hr 08/24/25 14:45 08/24/25 20:00 08/25/25 08:00 Temperature 97.6 F 97.9 F 97.1 F Pulse Rate 108 H 92 85 Respiratory Rate 18 18 Blood Pressure 160/75 H 122/84 161/88 H Pulse Oximetry 100 98 97 Oxygen Delivery Method Room Air Room Air Room Air BMI result Body Mass Index 17.7 Labs 08/23/25 20:45 08/24/25 06:21 Labs: Laboratory Results - last 48 hr 08/23/25 08/23/25 08/23/25 20:45 21:00 21:38 WBC 10.2 RBC 3.43 L Hgb 10.9 L Hct 30.0 L MCV 87.5 MCH 31.8 MCHC 36.3 H RDW 12.0 Plt Count 232 MPV 8.4 L Immature Gran % (Auto) 0.3 Neut % (Auto) 47.3 Lymph % (Auto) 42.6 H Clarke % (Auto) 9.4 Eos % (Auto) 0.0 Baso % (Auto) 0.4 Lymph # (Auto) 4.4 Clarke # (Auto) 1.0 Eos # (Auto) 0.0 Baso # (Auto) 0.0 Abs Immat Gran (auto) 0.03 Absolute Neuts (auto) 4.9 Absolute Nucleated RBC 0.000 Nucleated RBC % (auto) 0.0 Sodium 129 L Potassium 3.6 D Chloride 97 Carbon Dioxide 22 Anion Gap 14 BUN 13 Creatinine 0.54 Estim Creat Clear Calc 102.7 Estimated GFR > 60 Random Glucose 110 Estimat Average Glucose Hemoglobin A1c % Calcium 9.5 D Magnesium Total Bilirubin 0.4 AST 28 ALT 40 H Alkaline Phosphatase 75 Total Protein 6.7 Albumin 4.5 Triglycerides Cholesterol LDL Cholesterol, Calc HDL Cholesterol Vitamin B12 Folate TSH Free T4 Urine Color Yellow Urine Appearance Clear Urine pH 8.5 Ur Specific [place] <= 1.005 Urine Protein Negative Urine Glucose (UA) Negative Urine Ketones Negative Urine Blood Negative Urine Nitrite Negative Ur Leukocyte Esterase Negative Urine Opiates Screen Not Detected Ur Buprenorphine Scrn Not Detected Ur Oxycodone Screen Not Detected Urine Methadone Screen Not Detected Urine Fentanyl Screen Not Detected Ur Barbiturates Screen Not Detected Ur Phencyclidine Scrn Not Detected Ur Amphetamines Screen Not Detected U Benzodiazepines Scrn Not Detected Urine Cocaine Screen Not Detected U Marijuana (THC) Screen Not Detected Ethyl Alcohol < 10 Influenza Type A (PCR) NEGATIVE Influenza Type B (PCR) NEGATIVE RSV RNA Qual (PCR) NEGATIVE SARS-CoV-2 RNA (RT-PCR) NEGATIVE 08/24/25 08/25/25 06:21 09:17 WBC RBC Hgb Hct MCV MCH MCHC RDW Plt Count MPV Immature Gran % (Auto) Neut % (Auto) Lymph % (Auto) Clarke % (Auto) Eos % (Auto) Baso % (Auto) Lymph # (Auto) Clarke # (Auto) Eos # (Auto) Baso # (Auto) Abs Immat Gran (auto) Absolute Neuts (auto) Absolute Nucleated RBC Nucleated RBC % (auto) Sodium 137 Potassium 4.3 Chloride 106 Carbon Dioxide 24 Anion Gap 11 L BUN 10 Creatinine 0.58 Estim Creat Clear Calc 95.6 Estimated GFR > 60 Random Glucose 112 Estimat Average Glucose 120 Hemoglobin A1c % 5.8 Calcium 9.3 Magnesium 2.0 Total Bilirubin 0.4 AST 24 ALT 38 H Alkaline Phosphatase 76 Total Protein 6.6 Albumin 4.5 Triglycerides 53 Cholesterol 173 LDL Cholesterol, Calc 95 HDL Cholesterol 68 Vitamin B12 1024 H Folate 12.2 TSH 0.57 Free T4 0.93 Urine Color Urine Appearance Urine pH Ur Specific [place] Urine Protein Urine Glucose (UA) Urine Ketones Urine Blood Urine Nitrite Ur Leukocyte Esterase Urine Opiates Screen Ur Buprenorphine Scrn Ur Oxycodone Screen Urine Methadone Screen Urine Fentanyl Screen Ur Barbiturates Screen Ur Phencyclidine Scrn Ur Amphetamines Screen U Benzodiazepines Scrn Urine Cocaine Screen U Marijuana (THC) Screen Ethyl Alcohol Influenza Type A (PCR) Influenza Type B (PCR) RSV RNA Qual (PCR) SARS-CoV-2 RNA (RT-PCR) Medications Medications Current Medications Acetaminophen (Acetaminophen 325 Mg Tablet) 650 mg PO Q6H PRN PRN Reason: Headache/Pain, Scale 1-10 Al Hydroxide/Mg Hydroxide (Magnesium Hydrox/Alum Hydrox 30 Ml Oral.Susp) 30 ml PO Q6H PRN PRN Reason: Heartburn/Nausea Clozapine (Clozapine 100 Mg Tablet) 200 mg PO BID@0600,1300 [facility] Last Admin: 08/25/25 07:47 Dose: 200 mg Clozapine (Clozapine 100 Mg Tablet) 100 mg PO BEDTIME@1800 [facility] Last Admin: 08/24/25 18:37 Dose: 100 mg Hydroxyzine HCl (Hydroxyzine Hcl 25 Mg Tablet) 25 mg PO Q6H PRN PRN Reason: mild anxiety Lorazepam (Lorazepam 1 Mg Tablet) 1 mg PO TID@0800,1300,1800 [facility] Last Admin: 08/25/25 07:50 Dose: 1 mg Magnesium Hydroxide (Milk Of Magnesia 30 Ml Oral.Susp) 30 ml PO DAILY PRN PRN Reason: Constipation Melatonin (Melatonin 3 Mg Tablet) 3 mg PO DAILY@1800 [facility] Last Admin: 08/24/25 18:36 Dose: 3 mg Nicotine (Nicotine 14 Mg Patch.Td24) 14 mg TRANSDERMA DAILY [facility] Last Admin: 08/25/25 08:41 Dose: 14 mg Nicotine Polacrilex (Nicotine Polacrilex 2 Mg Gum) 2 mg BUCCAL Q2H PRN PRN Reason: Nicotine Cravings Sertraline HCl (Sertraline Hcl 25 Mg Tablet) 25 mg PO DAILY [facility] Last Admin: 08/25/25 08:41 Dose: 25 mg Trazodone HCl (Trazodone Hcl 50 Mg Tablet) 50 mg PO BEDTIME MRX1 PRN PRN Reason: Insomnia Allergies Allergies Allergy/AdvReac Type Severity Reaction Status Date / Time flu shot AdvReac Dizziness Uncoded 08/23/25 20:31 Assessment & Plan Assessment & Plan (1) Schizophrenia, chronic condition: Status: Acute Code(s): F20.9 - Schizophrenia, unspecified (2) OCD (obsessive compulsive disorder): Qualifiers: Obsessive-compulsive disorder type: unspecified Qualified Code(s): F 42.9 - Obsessive-compulsive disorder, unspecified Status: Acute Code(s): F42.9 - Obsessive-compulsive disorder, unspecified (3) Adjustment disorder with anxiety: Status: Resolved Code(s): F43.22 - Adjustment disorder with anxiety Plan Patient is a 59 y/o, , Cuban speaking, female with hx of Schizophrenia and OCD disorder who is previously known to the CARE Team through previous assessments. On 08/23/25: pt arrived at the ED, via ambulance, from [facility] in [place], with a complaint of acute mental status changes over the past several days, ? not making sense,? has not been eating for several days, is urinating frequently, and appears more confused compared to baseline. Pt has been medically cleared and is being assessed by the CARE Team to determine appropriate treatment recommendations which patient was found to meet [facility] admission to management her depression and altered mental status. Report poor appetite and appetite . Pt endorses worsening depression and anxiety in the setting of her 's 4 days ago. Pt denies HI, , SI, and self-harm. Initial plan: Patient on 15 minute checks for safety. Admitted to . Section 12B. Do not want to be here. Do not want to sign CV. . Work with treatment team to do collateral Diagnostic tests and discharge planning. EKG NSR. UTox negative. U/A negative. BAL is negative. Hospital course: 08/24/25: Clozaril 200 daily at 0900 and 1300 Clozaril 100 mg at 1800. Melatonin 3 mg at the same time. Ativan 1 mg t.i.d. at 0800, 1300, and 1800. Sertraline 25 mg daily for depression Blood pressure elevated on admission. We will continue to monitor. We will check Clozaril level. ANC on 08/23/25: 4.9 with weekly CBC with diff. no drooling observed during 1-1 assessment. 08/25: On 12B. Med adherent. Pt reported I can't really talk right now. I'm sleeping during brief interview today but denied any physical/psychiatric concerns. Continue current tx plan for now Reason for continued inpatient stay Substantial Risk for: inability to function and rapid decompensation Time Spent With Patient Time: Total time managing care of this patient today ____ minutes.
[2025-08-25 20:00] VITALS: BP 161/91; PULSE 81; TEMP 36.8; O2SAT 97
[2025-08-26 08:00] VITALS: BP 124/81; PULSE 86; RESP 18; TEMP 36.5; O2SAT 97
[2025-08-26] MEDS: Nicotine 14 MG PATCH.TD24 TRANSDERMA (08:55)
--- NOTE | 2025-08-26 11:26 | HO.PSYCHPN ---
Subjective Subjective Date of Service: 08/26/25 Reason For Visit: schizophrenia, ocd, recurrent major depression Subjective Notes: Section 12B Healthcare Proxy: No Guardianship: No Medical Problems Affecting Mental Status: No Interim History: Pt in bed, awake, eyes closed. Shakes her head when attempting to engage with her. Peers report she is not eating/drinking- will need encouragement Seen later in the day-awake, smiles, Hi , but again declines to engage. Medication Compliance: Yes Side effects from medications: No Attending Groups: No Review of Systems Medical Review of Systems: unchanged Review of Systems Review of Systems Yes Unobtainable due to mental status Mental Status Exam Mental Status Exam Patient Appearance: Fatigued Patient Orientation: Person and Place Level of Consciousness: Alert Patient Behavior: Isolative Mood Description: Depressed Affect Description: Flat Ability to Follow Directions: Good Speech Pattern: Spontaneous Speech Depressive Symptoms: Sleeping More Than Usual Judgement: Poor Diagnostics Vital Signs (24Hr): Vital Signs - 24 hr 08/25/25 20:00 08/26/25 08:00 Temperature 98.2 F 97.7 F Pulse Rate 81 86 Respiratory Rate 18 Blood Pressure 161/91 H 124/81 Pulse Oximetry 97 97 Oxygen Delivery Method Room Air Room Air BMI result Body Mass Index 17.7 Labs 08/23/25 20:45 08/24/25 06:21 Labs: Laboratory Results - last 48 hr 08/25/25 09:17 Estimat Average Glucose 120 Hemoglobin A1c % 5.8 Magnesium 2.0 Triglycerides 53 Cholesterol 173 LDL Cholesterol, Calc 95 HDL Cholesterol 68 Vitamin B12 1024 H Folate 12.2 TSH 0.57 Free T4 0.93 Medications Medications Current Medications Acetaminophen (Acetaminophen 325 Mg Tablet) 650 mg PO Q6H PRN PRN Reason: Headache/Pain, Scale 1-10 Al Hydroxide/Mg Hydroxide (Magnesium Hydrox/Alum Hydrox 30 Ml Oral.Susp) 30 ml PO Q6H PRN PRN Reason: Heartburn/Nausea Clozapine (Clozapine 100 Mg Tablet) 200 mg PO BID@0600,1300 [facility] Last Admin: 08/26/25 06:44 Dose: 200 mg Clozapine (Clozapine 100 Mg Tablet) 100 mg PO BEDTIME@1800 [facility] Last Admin: 08/25/25 17:54 Dose: 100 mg Hydroxyzine HCl (Hydroxyzine Hcl 25 Mg Tablet) 25 mg PO Q6H PRN PRN Reason: mild anxiety Lorazepam (Lorazepam 1 Mg Tablet) 1 mg PO TID@0800,1300,1800 [facility] Last Admin: 08/26/25 08:54 Dose: 1 mg Magnesium Hydroxide (Milk Of Magnesia 30 Ml Oral.Susp) 30 ml PO DAILY PRN PRN Reason: Constipation Melatonin (Melatonin 3 Mg Tablet) 3 mg PO DAILY@1800 [facility] Last Admin: 08/25/25 17:54 Dose: 3 mg Nicotine (Nicotine 14 Mg Patch.Td24) 14 mg TRANSDERMA DAILY [facility] Last Admin: 08/26/25 08:55 Dose: 14 mg Nicotine Polacrilex (Nicotine Polacrilex 2 Mg Gum) 2 mg BUCCAL Q2H PRN PRN Reason: Nicotine Cravings Sertraline HCl (Sertraline Hcl 25 Mg Tablet) 25 mg PO DAILY [facility] Last Admin: 08/26/25 08:54 Dose: 25 mg Trazodone HCl (Trazodone Hcl 50 Mg Tablet) 50 mg PO BEDTIME MRX1 PRN PRN Reason: Insomnia Allergies Allergies Allergy/AdvReac Type Severity Reaction Status Date / Time flu shot AdvReac Dizziness Uncoded 08/23/25 20:31 Assessment & Plan Assessment & Plan (1) Schizophrenia, chronic condition: Status: Acute Code(s): F20.9 - Schizophrenia, unspecified (2) OCD (obsessive compulsive disorder): Qualifiers: Obsessive-compulsive disorder type: unspecified Qualified Code(s): F42.9 - Obsessive-compulsive disorder, unspecified Status: Acute Code(s): F42.9 - Obsessive-compulsive disorder, unspecified (3) Adjustment disorder with anxiety: Status: Resolved Code(s): F43.22 - Adjustment disorder with anxiety Plan Patient is a 59 y/o, , Japanese speaking, female with hx of Schizophrenia and OCD disorder who is previously known to the CARE Team through previous assessments. On 08/23/25: pt arrived at the ED, via ambulance, from [facility] in [place], with a complaint of acute mental status changes over the past several days, ? not making sense,? has not been eating for several days, is urinating frequently, and appears more confused compared to baseline. Pt has been medically cleared and is being assessed by the CARE Team to determine appropriate treatment recommendations which patient was found to meet [facility] admission to management her depression and altered mental status. Report poor appetite and appetite . Pt endorses worsening depression and anxiety in the setting of her 's 4 days ago. Pt denies HI, , SI, and self-harm. Initial plan: Patient on 15 minute checks for safety. Admitted to M5. Section 12B. Do not want to be here. Do not want to sign CV. . Work with treatment team to do collateral Diagnostic tests and discharge planning. EKG NSR. UTox negative. U/A negative. BAL is negative. Hospital course: 08/24/25: Clozaril 200 daily at 0900 and 1300 Clozaril 100 mg at 1800. Melatonin 3 mg at the same time. Ativan 1 mg t.i.d. at 0800, 1300, and 1800. Sertraline 25 mg daily for depression Blood pressure elevated on admission. We will continue to monitor. We will check Clozaril level. ANC on 08/23/25: 4.9 with weekly CBC with diff. no drooling observed during 1-1 assessment. 08/25: On 12B. Med adherent. Pt reported I can't really talk right now. I'm sleeping during brief interview today but denied any physical/psychiatric concerns. Continue current tx plan for now 08/26: Intake and Output Encourage food/fluids Reason for continued inpatient stay Substantial Risk for: rapid decompensation and med/psych decompensation Time Spent With Patient Time: Total time managing care of this patient today ____ minutes.
[2025-08-26 19:52] VITALS: BP 158/83; PULSE 83; RESP 15; TEMP 36.6; O2SAT 99
[2025-08-26 20:27] VITALS: BP 80/60
[2025-08-27 08:00] VITALS: BP 121/56; PULSE 99; RESP 16; TEMP 36.3; O2SAT 99
[2025-08-27] MEDS: Nicotine 14 MG PATCH.TD24 TRANSDERMA (09:50)
--- NOTE | 2025-08-27 15:34 | P.PNPSI_ITS ---
Subjective Subjective Date of Service: 08/27/25 Reason For Visit: schizophrenia, ocd, recurrent major depression Subjective Notes: Section 12B Healthcare Proxy: No Guardianship: No Medical Problems Affecting Mental Status: No Interim History: Medical record and nursing notes reviewed; case discussed during rounds with team/nursing staff, and met with patient for supportive therapy/psychoeducation, as well as medication management. Meet with patient in assigned room, again this is second encounter this provider works with this patient. She was rushing this provider away with reason that she needs to sleep. Not out of bed. Poor mouth care, mostly close her eye. Denies all psychiatric symptoms included SI/SIB/HI/AVH, depression or anxiety. However, mood and affect are incongruent. Very depressed, not out of bed, not shower, appear disheveled. Minimal peer and staff interaction. Morning tray on the table but not sure she eats. Section 12B up tomorrow. Do not want to sign herself in. Do not want to be here but not improve. Concerns regarding able to take care of self and ADL's or failure to thrive. Medication Compliance: Yes Side effects from medications: No Attending Groups: No Review of Systems Acute medical concerns: No Medical Review of Systems: unchanged Review of Systems Review of Systems Constitutional: Denies fatigue and Denies fever(s) Cardiovascular: Denies chest pain and Denies dyspnea Respiratory: Denies dyspnea Gastrointestinal: Denies abdominal pain Psychiatric: denies suicidal ideation Endocrine: Denies fatigue Mental Status Exam Mental Status Exam Narrative: A+O, wearing hospital attire, poor ADL's, disheveled, poor mouth care. Appear to dehydrated. Guarded, minimal engaged. Isolated, keep to self. Incongruent with mood and affect. Severely depressed, underline irritable edge. Impaired in judgment and insight. Continue to monitor for PO intake. Diagnostics Vital Signs (24Hr): Vital Signs - 24 hr 08/26/25 19:52 08/26/25 20:27 08/27/25 08:00 Temperature 98 F 97.4 F Pulse Rate 83 99 Respiratory Rate 15 16 Blood Pressure 158/83 H 80/60 L 121/56 L Pulse Oximetry 99 99 Oxygen Delivery Method Room Air BMI result Body Mass Index 17.7 Labs 08/23/25 20:45 08/24/25 06:21 Medications Medications Current Medications Acetaminophen (Acetaminophen 325 Mg Tablet) 650 mg PO Q6H PRN PRN Reason: Headache/Pain, Scale 1-10 Al Hydroxide/Mg Hydroxide (Magnesium Hydrox/Alum Hydrox 30 Ml Oral.Susp) 30 ml PO Q6H PRN PRN Reason: Heartburn/Nausea Clozapine (Clozapine 100 Mg Tablet) 200 mg PO BID@0600,1300 [facility] Last Admin: 08/27/25 13:16 Dose: 200 mg Clozapine (Clozapine 100 Mg Tablet) 100 mg PO BEDTIME@1800 [facility] Last Admin: 08/26/25 17:33 Dose: 100 mg Hydroxyzine HCl (Hydroxyzine Hcl 25 Mg Tablet) 25 mg PO Q6H PRN PRN Reason: mild anxiety Lorazepam (Lorazepam 1 Mg Tablet) 1 mg PO TID@0800,1300,1800 [facility] Last Admin: 08/27/25 13:16 Dose: 1 mg Magnesium Hydroxide (Milk Of Magnesia 30 Ml Oral.Susp) 30 ml PO DAILY PRN PRN Reason: Constipation Melatonin (Melatonin 3 Mg Tablet) 3 mg PO DAILY@1800 [facility] Last Admin: 08/26/25 17:33 Dose: 3 mg Nicotine (Nicotine 14 Mg Patch.Td24) 14 mg TRANSDERMA DAILY [facility] Last Admin: 08/27/25 09:50 Dose: 14 mg Nicotine Polacrilex (Nicotine Polacrilex 2 Mg Gum) 2 mg BUCCAL Q2H PRN PRN Reason: Nicotine Cravings Sertraline HCl (Sertraline Hcl 25 Mg Tablet) 25 mg PO DAILY [facility] Last Admin: 08/27/25 09:51 Dose: 25 mg Trazodone HCl (Trazodone Hcl 50 Mg Tablet) 50 mg PO BEDTIME MRX1 PRN PRN Reason: Insomnia Allergies Allergies Allergy/AdvReac Type Severity Reaction Status Date / Time flu shot AdvReac Dizziness Uncoded 08/23/25 20:31 Assessment & Plan Assessment & Plan (1) Schizophrenia, chronic condition: Status: Acute Code(s): F20.9 - Schizophrenia, unspecified (2) OCD (obsessive compulsive disorder): Qualifiers: Obsessive-compulsive disorder type: unspecified Qualified Code(s): F 42.9 - Obsessive-compulsive disorder, unspecified Status: Acute Code(s): F42.9 - Obsessive-compulsive disorder, unspecified (3) Adjustment disorder with anxiety: Status: Resolved Code(s): F43.22 - Adjustment disorder with anxiety Plan Patient is a 59 y/o, , Turkish speaking, female with hx of Schizophrenia and OCD disorder who is previously known to the CARE Team through previous assessments. On 08/23/25: pt arrived at the ED, via ambulance, from [facility] in [place], with a complaint of acute mental status changes over the past several days, ? not making sense,? has not been eating for several days, is urinating frequently, and appears more confused compared to baseline. Pt has been medically cleared and is being assessed by the CARE Team to determine appropriate treatment recommendations which patient was found to meet [facility] admission to management her depression and altered mental status. Report poor appetite and appetite . Pt endorses worsening depression and anxiety in the setting of her 's 4 days ago. Pt denies HI, , SI, and self-harm. Initial plan: Patient on 15 minute checks for safety. Admitted to M5. Section 12B. Do not want to be here. Do not want to sign CV. . Work with treatment team to do collateral Diagnostic tests and discharge planning. EKG NSR. UTox negative. U/A negative. BAL is negative. Hospital course: 08/24/25: Clozaril 200 daily at 0900 and 1300 Clozaril 100 mg at 1800. Melatonin 3 mg at the same time. Ativan 1 mg t.i.d. at 0800, 1300, and 1800. Sertraline 25 mg daily for depression Blood pressure elevated on admission. We will continue to monitor. We will check Clozaril level. ANC on 08/23/25: 4.9 with weekly CBC with diff. no drooling observed during 1-1 assessment. 08/25: On 12B. Med adherent. Pt reported I can't really talk right now. I'm sleeping during brief interview today but denied any physical/psychiatric concerns. Continue current tx plan for now 08/26: Intake and Output Encourage food/fluids 08/27/25: Meet with patient in assigned room, again this is second encounter this provider works with this patient. She was rushing this provider away with reason that she needs to sleep. Not out of bed. Poor mouth care, mostly close her eye. Denies all psychiatric symptoms included SI/SIB/HI/AVH, depression or anxiety. However, mood and affect are incongruent. Very depressed, not out of bed, not shower, appear disheveled. Minimal peer and staff interaction. Morning tray on the table but not sure she eats. Section 12B up tomorrow. Do not want to sign herself in. Do not want to be here but not improve. Concerns regarding able to take care of self and ADL's or failure to thrive. Should plan for filing. Clozaril level pending. Patient educated on: diagnosis, medication risk/benefits and therapeutic strategies Informed Consent: understands and further education needed Reason for continued inpatient stay Substantial Risk for: med/psych decompensation Time Spent With Patient Time: Total time managing care of this patient today ____ minutes.
[2025-08-27 20:00] VITALS: BP 121/60; PULSE 82; RESP 16; TEMP 36.9; O2SAT 97
[2025-08-28 08:00] VITALS: BP 135/58; PULSE 89; RESP 16; TEMP 36.5; O2SAT 98
[2025-08-28] MEDS: Nicotine 14 MG PATCH.TD24 TRANSDERMA (09:08)
--- NOTE | 2025-08-28 10:31 | HO.PSYCHPN ---
Subjective Subjective Date of Service: 08/28/25 Reason For Visit: schizophrenia, ocd, recurrent major depression Subjective Notes: Section 7 Healthcare Proxy: No Guardianship: No Medical Problems Affecting Mental Status: No Interim History: Section 7 filed. Pt continues with poor intake. Declines to engage in discussion-states I want to go home, I am healthy, this place makes me sick. I do not need any assistance or sympathy that my . I am taking my medicine and I stay in bed because I don't want to associate with any of you. My brother stays with me and my cat who is 16 and who I have had since 3 months. Staying here makes me sicker. All of you are wonderfully insincere. Medication Compliance: Yes Side effects from medications: No Attending Groups: No Review of Systems poor intake Medical Review of Systems: unchanged Review of Systems Review of Systems denies, poor intake Mental Status Exam Mental Status Exam Patient Appearance: Fatigued Patient Orientation: Person and Place Level of Consciousness: Alert Patient Behavior: Isolative Mood Description: Depressed, Hostile and Angry Affect Description: Flat Ability to Follow Directions: Good Speech Pattern: Spontaneous Speech Depressive Symptoms: Sleeping More Than Usual Judgement: Poor Diagnostics Vital Signs (24Hr): Vital Signs - 24 hr 08/27/25 20:00 08/28/25 08:00 Temperature 98.4 F 97.7 F Pulse Rate 82 89 Respiratory Rate 16 16 Blood Pressure 121/60 135/58 L Pulse Oximetry 97 98 Oxygen Delivery Method Room Air Room Air BMI result Body Mass Index 17.7 Labs 08/23/25 20:45 08/24/25 06:21 Medications Medications Current Medications Acetaminophen (Acetaminophen 325 Mg Tablet) 650 mg PO Q6H PRN PRN Reason: Headache/Pain, Scale 1-10 Al Hydroxide/Mg Hydroxide (Magnesium Hydrox/Alum Hydrox 30 Ml Oral.Susp) 30 ml PO Q6H PRN PRN Reason: Heartburn/Nausea Clozapine (Clozapine 100 Mg Tablet) 200 mg PO BID@0600,1300 [facility] Last Admin: 08/28/25 06:38 Dose: 200 mg Clozapine (Clozapine 100 Mg Tablet) 100 mg PO BEDTIME@1800 [facility] Last Admin: 08/27/25 17:33 Dose: 100 mg Hydroxyzine HCl (Hydroxyzine Hcl 25 Mg Tablet) 25 mg PO Q6H PRN PRN Reason: mild anxiety Lorazepam (Lorazepam 1 Mg Tablet) 1 mg PO TID@0800,1300,1800 [facility] Last Admin: 08/28/25 09:09 Dose: 1 mg Magnesium Hydroxide (Milk Of Magnesia 30 Ml Oral.Susp) 30 ml PO DAILY PRN PRN Reason: Constipation Melatonin (Melatonin 3 Mg Tablet) 3 mg PO DAILY@1800 [facility] Last Admin: 08/27/25 17:33 Dose: 3 mg Nicotine (Nicotine 14 Mg Patch.Td24) 14 mg TRANSDERMA DAILY [facility] Last Admin: 08/28/25 09:08 Dose: 14 mg Nicotine Polacrilex (Nicotine Polacrilex 2 Mg Gum) 2 mg BUCCAL Q2H PRN PRN Reason: Nicotine Cravings Sertraline HCl (Sertraline Hcl 25 Mg Tablet) 25 mg PO DAILY [facility] Last Admin: 08/28/25 09:09 Dose: 25 mg Trazodone HCl (Trazodone Hcl 50 Mg Tablet) 50 mg PO BEDTIME MRX1 PRN PRN Reason: Insomnia Allergies Allergies Allergy/AdvReac Type Severity Reaction Status Date / Time flu shot AdvReac Dizziness Uncoded 08/23/25 20:31 Assessment & Plan Assessment & Plan (1) Schizophrenia, chronic condition: Status: Acute Code(s): F20.9 - Schizophrenia, unspecified (2) OCD (obsessive compulsive disorder): Qualifiers: Obsessive-compulsive disorder type: unspecified Qualified Code(s): F42.9 - Obsessive-compulsive disorder, unspecified Status: Acute Code(s): F42.9 - Obsessive-compulsive disorder, unspecified (3) Adjustment disorder with anxiety: Status: Resolved Code(s): F43.22 - Adjustment disorder with anxiety Plan Patient is a 59 y/o, , Korean speaking, female with hx of Schizophrenia and OCD disorder who is previously known to the CARE Team through previous assessments. On 08/23/25: pt arrived at the ED, via ambulance, from [facility] in [place], with a complaint of acute mental status changes over the past several days, ? not making sense,? has not been eating for several days, is urinating frequently, and appears more confused compared to baseline. Pt has been medically cleared and is being assessed by the CARE Team to determine appropriate treatment recommendations which patient was found to meet [facility] admission to management her depression and altered mental status. Report poor appetite and appetite . Pt endorses worsening depression and anxiety in the setting of her 's 4 days ago. Pt denies HI, , SI, and self-harm. Initial plan: Patient on 15 minute checks for safety. Admitted to M5. Section 12B. Do not want to be here. Do not want to sign CV. . Work with treatment team to do collateral Diagnostic tests and discharge planning. EKG NSR. UTox negative. U/A negative. BAL is negative. Hospital course: 08/24/25: Clozaril 200 daily at 0900 and 1300 Clozaril 100 mg at 1800. Melatonin 3 mg at the same time. Ativan 1 mg t.i.d. at 0800, 1300, and 1800. Sertraline 25 mg daily for depression Blood pressure elevated on admission. We will continue to monitor. We will check Clozaril level. ANC on 08/23/25: 4.9 with weekly CBC with diff. no drooling observed during 1-1 assessment. 08/25: On 12B. Med adherent. Pt reported I can't really talk right now. I'm sleeping during brief interview today but denied any physical/psychiatric concerns. Continue current tx plan for now 08/26: Intake and Output Encourage food/fluids 08/27/25: Meet with patient in assigned room, again this is second encounter this provider works with this patient. She was rushing this provider away with reason that she needs to sleep. Not out of bed. Poor mouth care, mostly close her eye. Denies all psychiatric symptoms included SI/SIB/HI/AVH, depression or anxiety. However, mood and affect are incongruent. Very depressed, not out of bed, not shower, appear disheveled. Minimal peer and staff interaction. Morning tray on the table but not sure she eats. Section 12B up tomorrow. Do not want to sign herself in. Do not want to be here but not improve. Concerns regarding able to take care of self and ADL's or failure to thrive. Should plan for filing. Clozaril level pending. 08/28/25: Section 7 filed. Pt continues with poor intake. Declines to engage in discussion-states I want to go home, I am healthy, this place makes me sick. I do not need any assistance or sympathy that my . I am taking my medicine and I stay in bed because I don't want to associate with any of you. My brother stays with me and my cat who is 16 and who I have had since 3 months. Staying here makes me sicker. All of you are wonderfully insincere. Reason for continued inpatient stay Substantial Risk for: rapid decompensation and med/psych decompensation Time Spent With Patient Time: Total time managing care of this patient today ____ minutes.
[2025-08-28 14:19] LABS: Clozapine (Clozaril) 473 mcg/L
[2025-08-28 20:00] VITALS: BP 130/61; PULSE 106; RESP 18; TEMP 37.2; O2SAT 98
[2025-08-29 08:00] VITALS: BP 93/51; PULSE 88; RESP 18; TEMP 36.8; O2SAT 98
[2025-08-29] MEDS: Nicotine 14 MG PATCH.TD24 TRANSDERMA (08:27)
--- NOTE | 2025-08-29 12:12 | HO.PSYCHPN ---
Subjective Subjective Date of Service: 08/29/25 Reason For Visit: schizophrenia, ocd, recurrent major depression Subjective Notes: Section 12B Healthcare Proxy: No Guardianship: No Medical Problems Affecting Mental Status: No Interim History: Medical record and nursing notes reviewed; case discussed during rounds with team/nursing staff, and met with patient Patient curled in bed. Poor PO. Says I am wonderful but has flat affect. Says she doesn't hear voices and is not depressed or suicidal. However, extremely poor PO. Not leaving her bed. Frail looking. Says she lost her who she knew for 40 years and for 37 years 10 days ago. Medication Compliance: Yes Side effects from medications: No Attending Groups: No Review of Systems Acute medical concerns: No Medical Review of Systems: unchanged Review of Systems Review of Systems Constitutional: Denies fatigue and Denies fever(s) Cardiovascular: Denies chest pain and Denies dyspnea Respiratory: Denies dyspnea Gastrointestinal: Denies abdominal pain Psychiatric: denies suicidal ideation Endocrine: Denies fatigue Mental Status Exam Mental Status Exam Narrative: A+O, wearing hospital attire, poor ADL's, disheveled, poor mouth care. Appear to dehydrated. Guarded, minimal engaged. Isolated, keep to self. Incongruent with mood and affect. Severely depressed, underline irritable edge. Impaired in judgment and insight. Continue to monitor for PO intake. Diagnostics Vital Signs (24Hr): Vital Signs - 24 hr 08/28/25 20:00 08/29/25 08:00 Temperature 98.9 F 98.3 F Pulse Rate 106 H 88 Respiratory Rate 18 18 Blood Pressure 130/61 93/51 L Pulse Oximetry 98 98 Oxygen Delivery Method Room Air Room Air BMI result Body Mass Index 17.7 Labs 08/23/25 20:45 08/24/25 06:21 Labs: Laboratory Results - last 48 hr 08/25/25 09:17 Clozapine 473 Norclozapine 338 Medications Medications Current Medications Acetaminophen (Acetaminophen 325 Mg Tablet) 650 mg PO Q6H PRN PRN Reason: Headache/Pain, Scale 1-10 Al Hydroxide/Mg Hydroxide (Magnesium Hydrox/Alum Hydrox 30 Ml Oral.Susp) 30 ml PO Q6H PRN PRN Reason: Heartburn/Nausea Clozapine (Clozapine 100 Mg Tablet) 200 mg PO BID@0600,1300 [facility] Last Admin: 08/29/25 07:07 Dose: 200 mg Clozapine (Clozapine 100 Mg Tablet) 100 mg PO BEDTIME@1800 [facility] Last Admin: 08/28/25 17:58 Dose: 100 mg Hydroxyzine HCl (Hydroxyzine Hcl 25 Mg Tablet) 25 mg PO Q6H PRN PRN Reason: mild anxiety Lorazepam (Lorazepam 1 Mg Tablet) 1 mg PO TID@0800,1300,1800 [facility] Last Admin: 08/29/25 08:28 Dose: 1 mg Magnesium Hydroxide (Milk Of Magnesia 30 Ml Oral.Susp) 30 ml PO DAILY PRN PRN Reason: Constipation Melatonin (Melatonin 3 Mg Tablet) 3 mg PO DAILY@1800 [facility] Last Admin: 08/28/25 17:58 Dose: 3 mg Nicotine (Nicotine 14 Mg Patch.Td24) 14 mg TRANSDERMA DAILY [facility] Last Admin: 08/29/25 08:27 Dose: 14 mg Nicotine Polacrilex (Nicotine Polacrilex 2 Mg Gum) 2 mg BUCCAL Q2H PRN PRN Reason: Nicotine Cravings Sertraline HCl (Sertraline Hcl 25 Mg Tablet) 25 mg PO DAILY [facility] Last Admin: 08/29/25 08:27 Dose: 25 mg Trazodone HCl (Trazodone Hcl 50 Mg Tablet) 50 mg PO BEDTIME MRX1 PRN PRN Reason: Insomnia Allergies Allergies Allergy/AdvReac Type Severity Reaction Status Date / Time flu shot AdvReac Dizziness Uncoded 08/23/25 20:31 Assessment & Plan Assessment & Plan (1) Schizophrenia, chronic condition: Status: Acute Code(s): F20.9 - Schizophrenia, unspecified (2) OCD (obsessive compulsive disorder): Qualifiers: Obsessive-compulsive disorder type: unspecified Qualified Code(s): F42.9 - Obsessive-compulsive disorder, unspecified Status: Acute Code(s): F42.9 - Obsessive-compulsive disorder, unspecified (3) Adjustment disorder with anxiety: Status: Resolved Code(s): F43.22 - Adjustment disorder with anxiety Plan Patient is a 59 y/o, , Latvian speaking, female with hx of Schizophrenia and OCD disorder who is previously known to the CARE Team through previous assessments. On 08/23/25: pt arrived at the ED, via ambulance, from [facility] in [place], with a complaint of acute mental status changes over the past several days, ? not making sense,? has not been eating for several days, is urinating frequently, and appears more confused compared to baseline. Pt has been medically cleared and is being assessed by the CARE Team to determine appropriate treatment recommendations which patient was found to meet [facility] admission to management her depression and altered mental status. Report poor appetite and appetite . Pt endorses worsening depression and anxiety in the setting of her 's 4 days ago. Pt denies HI, , SI, and self-harm. Initial plan: Patient on 15 minute checks for safety. Admitted to . Section 12B. Do not want to be here. Do not want to sign CV. . Work with treatment team to do collateral Diagnostic tests and discharge planning. EKG NSR. UTox negative. U/A negative. BAL is negative. Hospital course: 08/24/25: Clozaril 200 daily at 0900 and 1300 Clozaril 100 mg at 1800. Melatonin 3 mg at the same time. Ativan 1 mg t.i.d. at 0800, 1300, and 1800. Sertraline 25 mg daily for depression Blood pressure elevated on admission. We will continue to monitor. We will check Clozaril level. ANC on 08/23/25: 4.9 with weekly CBC with diff. no drooling observed during 1-1 assessment. 08/25: On 12. Med adherent. Pt reported I can't really talk right now. I'm sleeping during brief interview today but denied any physical/psychiatric concerns. Continue current tx plan for now 08/26: Intake and Output Encourage food/fluids 08/27/25: Meet with patient in assigned room, again this is second encounter this provider works with this patient. She was rushing this provider away with reason that she needs to sleep. Not out of bed. Poor mouth care, mostly close her eye. Denies all psychiatric symptoms included SI/SIB/HI/AVH, depression or anxiety. However, mood and affect are incongruent. Very depressed, not out of bed, not shower, appear disheveled. Minimal peer and staff interaction. Morning tray on the table but not sure she eats. Section 12B up tomorrow. Do not want to sign herself in. Do not want to be here but not improve. Concerns regarding able to take care of self and ADL's or failure to thrive. Should plan for filing. Clozaril level pending. 08/29: Continue current management and treatment plan. Appears very depressed. Patient educated on: diagnosis, medication risk/benefits and therapeutic strategies Informed Consent: understands and further education needed Reason for continued inpatient stay Substantial Risk for: med/psych decompensation Time Spent With Patient Time: Total time managing care of this patient today ____ minutes.
[2025-08-29 14:49] VITALS: BP 60/32; PULSE 112; TEMP 37.1; O2SAT 99
[2025-08-29 15:25] LABS: Alanine Aminotransferase 23 U/L (0-31); Albumin Level 4.7 g/dL (3.5-5.0); Alkaline Phosphatase 92 U/L (39-117); Anion Gap 16 (12-20); Aspartate Amino Transferase 20 U/L (5-31); Blood Urea Nitrogen 19 mg/dL (9-16); Calcium 9.9 mg/dL (8.4-10.2); Carbon Dioxide 23 mmol/L (22-29); Chloride 99 mmol/L (96-108); Creatinine Clr Calc Pharmacy 57.6; Estimated Glomerular Filt Rate > 60; Potassium 4.2 mmol/L (3.3-5.1); Sodium 134 mmol/L (135-145); Total Protein 7.1 g/dL (6.5-8.0)
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
[2025-08-29 16:09] VITALS: BP 137/80; PULSE 97; RESP 16; TEMP 36.5; O2SAT 99
== END 2025-08-29 16:04 | disposition other institution (70) | DRG 882 ==
LOC: HO.ED 08-24 13:21 → HO.PM5 08-24 13:29
PROVIDERS: Nurse Practitioner Psychiatric/Mental Health; Physician Assistant; Psychiatry & Neurology Psychiatry; Admitting Provider Clinical Nurse Specialist Psychiatric/Mental Health, Adult; Emergency Provider Emergency Medicine; Visit Provider Clinical Nurse Specialist Psychiatric/Mental Health, Adult
DX: F43.22 Adjustment disorder with anxiety (principal); Z68.1 Body mass index [BMI] 19.9 or less, adult; F33.9 Major depressive disorder, recurrent, unspecified; E87.1 Hypo-osmolality and hyponatremia; R62.7 Adult failure to thrive; I95.9 Hypotension, unspecified; F20.9 Schizophrenia, unspecified; F42.9 Obsessive-compulsive disorder, unspecified; F51.04 Psychophysiologic insomnia; R03.0 Elevated blood-pressure reading, without diagnosis of hypertension; M54.50 Low back pain, unspecified; Z63.4 Disappearance and death of family member; Z79.899 Other long term (current) drug therapy; Z91.81 History of falling
CPT/HCPCS: 36415; 71046; 72100; 80053; 80061; 80159; 80307; 81003; 82607; 82746; 83036; 83735; 84439; 84443; 85025; 87637; 93005; 99285; S9485

== ENCOUNTER → 2025-08-23 20:35 | Outpatient (BNV) | payer MEDICARE, MEDICAID, SELFPAY | PROVIDERS: Emergency Provider Emergency Medicine; Visit Provider Internal Medicine Cardiovascular Disease | DX: R41.82 Altered mental status, unspecified (principal) | CPT/HCPCS: 93010 ==

== ENCOUNTER → 2025-08-23 21:20 | Outpatient (BNV) | payer MEDICARE, MEDICAID, SELFPAY | PROVIDERS: Emergency Provider Emergency Medicine; Visit Provider Radiology Diagnostic Radiology | DX: R09.89 Other specified symptoms and signs involving the circulatory and respiratory systems (principal); R41.82 Altered mental status, unspecified | CPT/HCPCS: 71046; 72100 ==

== ENCOUNTER → 2025-08-24 13:16 | Outpatient (BNV) | payer MEDICARE, MEDICAID, SELFPAY | PROVIDERS: Admitting Provider Clinical Nurse Specialist Psychiatric/Mental Health, Adult; Emergency Provider Emergency Medicine; Visit Provider Psychiatry & Neurology Psychiatry | DX: F20.9 Schizophrenia, unspecified (principal); F42.9 Obsessive-compulsive disorder, unspecified; F43.22 Adjustment disorder with anxiety | CPT/HCPCS: 90792; 99231; 99232; 99238; 99499 ==

== ENCOUNTER → 2025-08-24 13:16 | Outpatient (BNV) | payer MEDICARE, MEDICAID, SELFPAY | PROVIDERS: Admitting Provider Clinical Nurse Specialist Psychiatric/Mental Health, Adult; Emergency Provider Emergency Medicine; Visit Provider Nurse Practitioner Family | DX: F43.20 Adjustment disorder, unspecified (principal) | CPT/HCPCS: 99221 ==

== ENCOUNTER → 2025-08-29 16:21 | Outpatient (BNV) | payer MEDICARE, MEDICAID, SELFPAY | PROVIDERS: Admitting Provider Hospitalist; PCP Internal Medicine; Visit Provider Social Worker | DX: F20.9 Schizophrenia, unspecified (principal); F42.9 Obsessive-compulsive disorder, unspecified; F43.20 Adjustment disorder, unspecified; E86.1 Hypovolemia; R62.7 Adult failure to thrive; M62.84 Sarcopenia | CPT/HCPCS: 99232 ==

== ENCOUNTER → 2025-08-29 16:21 | Outpatient (BNV) | payer MEDICARE, MEDICAID, SELFPAY | PROVIDERS: Admitting Provider Hospitalist; Visit Provider Hospitalist | DX: F20.9 Schizophrenia, unspecified (principal); F42.9 Obsessive-compulsive disorder, unspecified; F43.20 Adjustment disorder, unspecified; E86.1 Hypovolemia; R62.7 Adult failure to thrive; M62.84 Sarcopenia | CPT/HCPCS: 99233; 99499 ==